=== PATIENT | male | born 1950 | race Asian ===

== ENCOUNTER → 2018-05-17 09:32 | Outpatient (CLI) | payer MEDICARE, OTHER, SELFPAY ==
[2018-05-17 10:46] LABS: Alanine Aminotransferase 44 IU/L (21-72); Albumin 4.4 g/dL (3.5-5.0); Albumin Globulin Ratio 1.8 (1.0-2.8); Alkaline Phosphatase 66 U/L (38-126); Aspartate Aminotransferase 33 IU/L (17-59); Bilirubin Total 2.1 mg/dL (0.2-1.3); Blood Urea Nitrogen 15 mg/dL (9-20); Calcium 9.3 mg/dL (8.4-10.2); Carbon Dioxide 33 mmol/L (22-32); Chloride 100 mmol/L (98-107); Cholesterol 185 mg/dL (140-199); Estimated Glomerular Filt Rate > 60.0 mL/min (>60); Globulin 2.5 g/dL (1.7-4.1); Glucose 99 mg/dL (80-110); HDL Cholesterol 42 mg/dL (40-60); HEMOLYSIS < 15 (0-50); LDL Cholesterol Calculated 116 mg/dL (<100); Potassium 4.5 mmol/L (3.4-5.1); Sodium 140 mmol/L (137-145); Total Protein 6.9 g/dL (6.3-8.2); Triglycerides 137 mg/dL (35-150)
[2018-05-17 11:14] LABS: Prostate Specific Antigen Scrn 2.94 ng/mL (0.1-4.0)
== END ==
PROVIDERS: PCP Internal Medicine; Visit Provider Internal Medicine
DX: I10 Essential (primary) hypertension (principal); E78.5 Hyperlipidemia, unspecified; M10.00 Idiopathic gout, unspecified site
CPT/HCPCS: 36415; 80053; 80061; G0103

== ENCOUNTER → 2018-06-22 10:47 | Outpatient (CLI) | payer MEDICARE, OTHER, SELFPAY ==
[2018-06-22 11:20] LABS: Erythrocyte Sedimentation Rate 2 MM/HR (0-15)
[2018-06-22 11:26] LABS: C-Reactive Protein Quant < 0.5 mg/dL (<1.0)
== END ==
PROVIDERS: Family Provider Internal Medicine; PCP Internal Medicine; Visit Provider Ophthalmology
DX: H53.122 Transient visual loss, left eye (principal)
CPT/HCPCS: 36415; 85651; 86140

== ENCOUNTER → 2018-07-01 14:33 | Outpatient (CLI) | payer MEDICARE, OTHER, SELFPAY ==
[2018-07-01 16:09] LABS: Blood Urea Nitrogen 14 mg/dL (9-20); Estimated Glomerular Filt Rate > 60.0 mL/min (>60)
== END ==
PROVIDERS: PCP Internal Medicine; Visit Provider Ophthalmology
DX: H04.019 Acute dacryoadenitis, unspecified lacrimal gland (principal)
CPT/HCPCS: 36415; 82565; 84520

== ENCOUNTER → 2018-07-11 07:16 | Outpatient (CLI) | payer MEDICARE, OTHER, SELFPAY ==
--- NOTE | 2018-07-11 | DI.MRI.S_ITS ---
PROCEDURE: MR LUMBAR SPINE WO CON INDICATIONS: LUMBAR SPINE PAIN TECHNIQUE: Noncontrast sagittal T1 spin echo and T2 fast echo, sagittal STIR, axial T1 and T2 fast spin echo through the lumbar spine. In cases with scoliosis, additional coronal T2 fast spin echo may be performed. COMPARISON: [facility], CR, XR LUMBAR SPINE 2 OR 3 VIEWS, 07/02/2018, 9:27. [facility], CR, L-SPINE 2-3 VIEWS, 08/05/2014, 15:05. FINDINGS: Image quality: Excellent. Alignment and Curvature: There is normal bony alignment. Bone Marrow: Marrow is of normal overall signal. No acute vertebral body compression fractures. Spinal Cord: Conus medullaris terminates at the L1 level. Visualized cord demonstrates normal signal and size. Paraspinous Soft Tissues: No paravertebral masses. L1-L2: Loss of disc signal and slight loss of disc height. Moderate, diffuse disc bulge. Mild narrowing of the central canal. No neural foraminal narrowing. No neural impingement. L2-L3: Loss of disc signal and slight loss of disc height. Mild diffuse disc bulge. Moderate facet and moderate ligamentum flavum hypertrophy. Severe central stenosis. Mild bilateral neural foraminal narrowing. L3-L4: Loss of disc signal and slight loss of disc height. Mild diffuse disc bulge. Mild bilateral facet hypertrophy. Moderate narrowing of the central canal. Mild bilateral neural foraminal narrowing. No neural impingement. L4-L5: Loss of disc signal and slight loss of disc height. Mild, diffuse disc bulge. Moderate facet and mild ligamentum flavum hypertrophy. Moderate to severe narrowing of the central canal. Mild bilateral neural foraminal narrowing. No neural impingement. L5-S1: Loss of disc signal and height. Mild diffuse disc bulge. Mild bilateral facet hypertrophy. No central stenosis. Mild bilateral neural foraminal narrowing. No neural impingement. IMPRESSION: 1. Multilevel degenerative disc disease. 2. Multilevel facet arthropathy. 3. Severe L2-L3 central canal stenosis. Moderate to severe L4-L5 central canal narrowing. Moderate L3-L4 central canal narrowing. Mild L1-L2 central canal narrowing. 4. Mild bilateral L2-L3, L3-L4, L4-L5 and L5-S1 neural foraminal narrowing. Dictated by: Lee Ann Casas MD, PhD on 07/11/2018 at 11:22 Approved by: Lee Ann Casas MD, PhD on 07/11/2018 at 11:27
--- NOTE | 2018-07-11 | DI.US.S_ITS ---
PROCEDURE: US CAROTID DOPPLER BI INDICATIONS: UNSPECIFIED LACRIMAL GLAND TECHNIQUE: Color and pulse Doppler interrogation was performed of both carotid systems, with image documentation and velocity measurements. COMPARISON: None. FINDINGS: Stenosis calculations are based on SRU (Society of Radiologists in Ultrasound) criteria. Right side: Brachial blood pressure: 128/73 mm Hg. Common carotid artery peak systolic velocity: 87 cm/sec. Internal carotid artery peak systolic velocity: 94 cm/sec. Internal carotid artery end diastolic velocity: 28 cm/sec. External carotid artery peak systolic velocity: 112 cm/sec. ICA/CCA peak systolic ratio: 1.1. Mendoza scale imaging description: Normal appearance. Percent internal carotid artery stenosis: No carotid stenosis. Vertebral artery: Flow direction is antegrade. Left side: Brachial blood pressure: 116/70 mm Hg. Common carotid artery peak systolic velocity: 86 cm/sec. Internal carotid artery peak systolic velocity: 112 cm/sec. Internal carotid artery end diastolic velocity: 37 cm/sec. External carotid artery peak systolic velocity: 96 cm/sec. ICA/CCA peak systolic ratio: 1.3. Mendoza scale imaging description: Normal appearance. Percent internal carotid artery stenosis: No carotid stenosis.. Vertebral artery: Flow direction is antegrade. IMPRESSION: No carotid stenosis. Dictated by: Ash LAUREANO Interpreted: Lee Ann Casas MD on 07/11/2018 at 11:37 Approved by: Lee Ann Casas MD, PhD on 07/11/2018 at 14:36
== END ==
PROVIDERS: Family Provider Internal Medicine; PCP Internal Medicine; Visit Provider Orthopaedic Surgery Orthopaedic Surgery of the Spine
DX: M51.36 Other intervertebral disc degeneration, lumbar region (principal); M51.37 Other intervertebral disc degeneration, lumbosacral region; M47.816 Spondylosis without myelopathy or radiculopathy, lumbar region; M48.061 Spinal stenosis, lumbar region without neurogenic claudication; M48.07 Spinal stenosis, lumbosacral region; M54.5 Low back pain
CPT/HCPCS: 72148; 93880

== ENCOUNTER → 2018-07-30 16:12 | Outpatient (CLI) | payer MEDICARE, OTHER, SELFPAY ==
[2018-07-30 17:39] LABS: Alanine Aminotransferase 83 IU/L (21-72); Albumin 4.3 g/dL (3.5-5.0); Albumin Globulin Ratio 1.7 (1.0-2.8); Alkaline Phosphatase 69 U/L (38-126); Aspartate Aminotransferase 36 IU/L (17-59); Bilirubin Total 1.8 mg/dL (0.2-1.3); Blood Urea Nitrogen 15 mg/dL (9-20); Calcium 9.2 mg/dL (8.4-10.2); Carbon Dioxide 33 mmol/L (22-32); Chloride 100 mmol/L (98-107); Estimated Glomerular Filt Rate > 60.0 mL/min (>60); Globulin 2.5 g/dL (1.7-4.1); Glucose 99 mg/dL (80-110); HEMOLYSIS < 15 (0-50); Sodium 143 mmol/L (137-145); Total Protein 6.8 g/dL (6.3-8.2)
[2018-07-30 18:00] LABS: Free T3, Triiodothyronine Free 3.06 pg/mL (2.77-5.27); Free T4, Direct Thyroxine 0.89 ng/dL (0.78-2.19)
[2018-07-30 18:14] LABS: Thyroid Stimulating Hormone 1.61 uIU/mL (0.47-4.68)
[2018-07-31 21:54] LABS: T4 Total Thyroxine 6.31 ug/dL (5.5-11.0)
[2018-08-01 15:42] LABS: Angiotensin Converting Enzyme 16 U/L (9-67)
[2018-08-01 22:47] LABS: ANCA Screen Negative (Negative)
== END ==
PROVIDERS: PCP Internal Medicine; Visit Provider Ophthalmology
DX: H01.8 Other specified inflammations of eyelid (principal)
CPT/HCPCS: 36415; 80053; 82164; 84436; 84439; 84443; 84481; 86021

== ENCOUNTER → 2018-12-16 11:27 | Outpatient (CLI) | payer MEDICARE, OTHER, SELFPAY ==
[2018-12-18 15:16] LABS: C1 Esterase Inhibitor 25 mg/dL (21-39)
== END ==
PROVIDERS: Family Provider Internal Medicine; PCP Internal Medicine; Visit Provider Ophthalmology
DX: H04.03 Chronic enlargement of lacrimal gland (principal)
CPT/HCPCS: 36415; 86160; 86161

== ENCOUNTER → 2019-01-28 09:48 | Outpatient (CLI) | payer MEDICARE, OTHER, SELFPAY ==
[2019-01-28 11:18] LABS: C-Reactive Protein Quant 0.6 mg/dL (<1.0)
[2019-01-28 11:19] LABS: Erythrocyte Sedimentation Rate 2 MM/HR (0-15)
[2019-01-28 11:22] LABS: Rheumatoid Factor < 8.6 IU/mL (<12.0)
[2019-01-30 19:39] LABS: ANA Screen, IFA Negative (Negative)
[2019-01-31 14:08] LABS: Mitogen-NIL 7.11 IU/mL; NIL 0.01 IU/mL; QuantiFERON TB NEGATIVE (Negative); TB1-NIL 0.01 IU/mL; TB2-NIL 0.01 IU/mL
== END ==
PROVIDERS: Family Provider Ophthalmology; PCP Internal Medicine; Visit Provider Ophthalmology
DX: H04.03 Chronic enlargement of lacrimal gland (principal)
CPT/HCPCS: 36415; 85651; 86038; 86140; 86430; 86480; 86780

== ENCOUNTER → 2019-02-06 09:08 | Outpatient (CLI) | payer MEDICARE, OTHER, SELFPAY ==
--- NOTE | 2019-02-06 | DI.MRI.S_ITS ---
PROCEDURE: MR ORBITS FACE NECK WO/W CON INDICATIONS: CHRONIC ENLARGEMENT OF LEFT LACRIMAL GLAND TECHNIQUE: Noncontrast sagittal T1 spin echo, axial FLAIR, axial gradient echo, axial diffusion and ADC acquired through the brain. Coronal STIR, thin-slice axial T1 spin echo through the orbits. After the administration of contrast, thin-slice axial and coronal T1 spin echo with fat saturation through the orbits, axial T1 spin echo with fat saturation through the brain. COMPARISON: None. FINDINGS: Image quality: Excellent. Orbits: In this patient with this given history, scrutiny is given to the lacrimal glands. The left lateral is slightly larger than the right. No abnormal signal or abnormal enhancement can be seen of the left lacrimal gland. Globes are symmetrical. Note is made of bilateral lens replacements. The optic nerves are normal in size, without abnormal signal or enhancement. No retrobulbar masses or fat abnormalities. The extra-ocular muscles are normal and symmetric in appearance. Optic chiasm is normal. Periorbital soft tissues appear normal. CSF spaces: Ventricles are normal in size and shape. Basal cisterns are patent. No extra-axial fluid collections. Brain: No intracranial bleeds or mass effects. No abnormal intracranial enhancement. Mendoza-white matter interface is intact. Diffusion weighted images demonstrate no acute ischemic insults. Pituitary gland appears normal, without sellar or suprasellar masses. Brainstem appears normal. Normal intravascular flow voids are present. Skull and face: Calvarial marrow is normal in signal. Sinuses: Moderate to prominent mucosal thickening can be seen within the maxillary sinuses and there is at least moderate mucosal thickening seen within the ethmoid air cells. Mmmu-ar-ybisgfsm mucosal thickening is seen within the frontal sinuses, right worse than left. Mild sphenoid sinus mucosal thickening is seen. There is mild leftward nasal septal deviation noted. No abnormal fluid can be seen within the mastoid air cells. IMPRESSION: Asymmetric lacrimal glands, with left lacrimal gland enlargement. No masses can be seen associated with it. Paranasal sinus disease is seen, which is most prominent involving the maxillary sinuses. Dictated by: Petros Dillon M.D. on 02/06/2019 at 9:54 Approved by: Petros Dillon M.D. on 02/06/2019 at 9:57
== END ==
PROVIDERS: Family Provider Ophthalmology; PCP Internal Medicine; Visit Provider Ophthalmology
DX: H04.03 Chronic enlargement of lacrimal gland (principal); J32.4 Chronic pansinusitis
CPT/HCPCS: 70543

== ENCOUNTER → 2019-05-30 09:46 | Outpatient (CLI) | payer MEDICARE, OTHER, SELFPAY ==
[2019-05-30 11:36] LABS: Alanine Aminotransferase 39 IU/L (21-72); Albumin 4.3 g/dL (3.5-5.0); Albumin Globulin Ratio 1.6 (1.0-2.8); Alkaline Phosphatase 80 U/L (38-126); Aspartate Aminotransferase 33 IU/L (17-59); BUN Creatinine Ratio 15.6 (6-22); Bilirubin Total 1.5 mg/dL (0.2-1.3); Blood Urea Nitrogen 14 mg/dL (9-20); Calcium 9.4 mg/dL (8.4-10.2); Carbon Dioxide 32 mmol/L (22-32); Chloride 101 mmol/L (98-107); Cholesterol 178 mg/dL (140-199); Estimated Glomerular Filt Rate > 60.0 mL/min (>60); Globulin 2.7 g/dL (1.7-4.1); Glucose 106 mg/dL (80-110); HDL Cholesterol 35 mg/dL (40-60); HEMOLYSIS < 15 (0-50); LDL Cholesterol Calculated 102 mg/dL (<100); Sodium 141 mmol/L (137-145); Triglycerides 205 mg/dL (35-150); Uric Acid 4.1 mg/dL (3.5-8.5)
[2019-05-30 12:03] LABS: Prostate Specific Antigen Scrn 2.72 ng/mL (0.1-4.0)
== END ==
PROVIDERS: PCP Internal Medicine; Visit Provider Internal Medicine
DX: M10.00 Idiopathic gout, unspecified site (principal); E78.5 Hyperlipidemia, unspecified; I10 Essential (primary) hypertension; Z12.5 Encounter for screening for malignant neoplasm of prostate
CPT/HCPCS: 36415; 80053; 80061; 84550; G0103

== ENCOUNTER → 2019-08-06 13:46 | Outpatient (CLI) | payer MEDICARE, OTHER, SELFPAY ==
--- NOTE | 2019-08-06 | DI.RAD.S_ITS ---
PROCEDURE: XR CHEST 2V INDICATIONS: sarcoidosis TECHNIQUE: 2 views of the chest were acquired. COMPARISON: None. FINDINGS: Surgical changes and devices: None. Lungs and pleura: Lungs are clear. No pleural effusions or pneumothorax. Mediastinum: Mediastinal contours are normal. Heart size is normal. Bones and chest wall: No suspicious bony abnormalities. Soft tissues appear unremarkable. IMPRESSION: Chest without acute cardiopulmonary abnormalities. Dictated by: Walter Chavira M.D. on 08/06/2019 at 15:19 Approved by: Walter Chavira M.D. on 08/06/2019 at 15:20
== END ==
PROVIDERS: PCP Internal Medicine; Visit Provider Internal Medicine Rheumatology
DX: D86.9 Sarcoidosis, unspecified (principal)
CPT/HCPCS: 71046

== ENCOUNTER 2019-10-23 07:30 | Outpatient (RCR) | payer MEDICARE, OTHER, SELFPAY ==
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
== END 2019-10-23 08:30 ==
LOC: PHYS 07:30
PROVIDERS: PCP Internal Medicine; Visit Provider Neurological Surgery
DX: M48.062 Spinal stenosis, lumbar region with neurogenic claudication (principal)
CPT/HCPCS: 97110; 97161; 97535

== ENCOUNTER → 2019-12-12 10:47 | Outpatient (CLI) | payer MEDICARE, OTHER, SELFPAY ==
[2019-12-12 11:21] LABS: Add Manual Diff / Slide Review NO; Basophils Absolute Auto 100 /uL (0-100); Basophils Percent Auto 1.7 % (0-2); Eosinophils Absolute Auto 200 /uL (0-450); Eosinophils Percent Auto 4.1 % (2-4); Hematocrit 44.9 % (41-53); Hemoglobin 15.4 g/dL (13.5-17.5); Lymphocytes Absolute Auto 1300 /uL (1100-4500); Lymphocytes Percent Auto 31.6 % (25-40); Mean Corpuscular HGB Conc 34.2 % (30-36); Mean Corpuscular Volume 90.5 fL (80-100); Monocytes Absolute Auto 300 /uL (0-900); Monocytes Percent Auto 7.3 % (3-14); Neutrophils Absolute Auto 2300 /uL (1500-7000); Neutrophils Percent Auto 55.3 % (50-75); Platelet Count 194 X10^3/uL (150-400); Red Blood Cell Count 4.97 X10^6/uL (4.5-5.9); Red Cell Distribution Width 13.3 % (11.6-14.8); White Blood Cell Count 4.2 X10^3/uL (4.5-11.0)
[2019-12-12 12:01] LABS: Erythrocyte Sedimentation Rate 2 MM/HR (0-15)
[2019-12-12 12:16] LABS: Alanine Aminotransferase 50 IU/L (<50); Albumin 4.3 g/dL (3.5-5.0); Albumin Globulin Ratio 1.5 (1.0-2.8); Alkaline Phosphatase 89 U/L (38-126); Aspartate Aminotransferase 39 IU/L (17-59); Bilirubin Total 1.4 mg/dL (0.2-1.3); Blood Urea Nitrogen 12 mg/dL (9-20); C-Reactive Protein Quant < 0.5 mg/dL (<1.0); Calcium 9.6 mg/dL (8.4-10.2); Carbon Dioxide 31 mmol/L (22-32); Chloride 102 mmol/L (98-107); Estimated Glomerular Filt Rate > 60.0 mL/min (>60); Globulin 2.8 g/dL (1.7-4.1); Glucose 98 mg/dL (80-110); HEMOLYSIS < 15 (0-50); Sodium 141 mmol/L (137-145); Total Protein 7.1 g/dL (6.3-8.2)
[2019-12-15 12:18] LABS: Angiotensin Converting Enzyme 25 U/L (9-67)
== END ==
PROVIDERS: PCP Internal Medicine; Referring Provider Internal Medicine Rheumatology; Visit Provider Internal Medicine Rheumatology
DX: D86.9 Sarcoidosis, unspecified (principal)
CPT/HCPCS: 36415; 80053; 82164; 85025; 85651; 86140

== ENCOUNTER → 2020-10-06 07:46 | Outpatient (CLI) | payer MEDICARE, OTHER, SELFPAY ==
[2020-10-06 08:09] LABS: Add Manual Diff / Slide Review NO; Basophils Absolute Auto 100 /uL (0-100); Basophils Percent Auto 1.2 % (0-2); Eosinophils Absolute Auto 200 /uL (0-450); Eosinophils Percent Auto 4.7 % (2-4); Hemoglobin 15.9 g/dL (13.5-17.5); Lymphocytes Absolute Auto 1300 /uL (1100-4500); Mean Corpuscular HGB Conc 33.9 % (30-36); Mean Corpuscular Hemoglobin 30.8 PG (26-34); Mean Corpuscular Volume 90.9 fL (80-100); Monocytes Absolute Auto 400 /uL (0-900); Monocytes Percent Auto 7.1 % (3-14); Neutrophils Absolute Auto 3000 /uL (1500-7000); Platelet Count 196 X10^3/uL (150-400); Red Blood Cell Count 5.17 X10^6/uL (4.5-5.9); Red Cell Distribution Width 13.1 % (11.6-14.8)
[2020-10-06 08:21] LABS: Alanine Aminotransferase 45 IU/L (<50); Albumin 4.4 g/dL (3.5-5.0); Albumin Globulin Ratio 1.6 (1.0-2.8); Alkaline Phosphatase 81 U/L (38-126); Aspartate Aminotransferase 36 IU/L (17-59); Bilirubin Total 1.8 mg/dL (0.2-1.3); Blood Urea Nitrogen 14 mg/dL (9-20); Calcium 9.4 mg/dL (8.4-10.2); Carbon Dioxide 34 mmol/L (22-32); Chloride 100 mmol/L (98-107); Cholesterol 205 mg/dL (140-199); Estimated Glomerular Filt Rate > 60.0 mL/min (>60); Globulin 2.8 g/dL (1.7-4.1); Glucose 116 mg/dL (80-110); HDL Cholesterol 39 mg/dL (40-60); HEMOLYSIS 22 (0-50); LDL Cholesterol Calculated 113 mg/dL (<100); Potassium 4.1 mmol/L (3.4-5.1); Sodium 139 mmol/L (137-145); Total Protein 7.2 g/dL (6.3-8.2); Triglycerides 266 mg/dL (35-150); Uric Acid 4.4 mg/dL (3.5-8.5)
[2020-10-06 08:51] LABS: Prostate Specific Antigen Scrn 2.86 ng/mL (0.1-4.0)
== END ==
PROVIDERS: PCP Internal Medicine; Referring Provider Internal Medicine; Visit Provider Internal Medicine
DX: Z00.00 Encounter for general adult medical examination without abnormal findings (principal); E78.00 Pure hypercholesterolemia, unspecified; Z12.5 Encounter for screening for malignant neoplasm of prostate; I10 Essential (primary) hypertension; M10.00 Idiopathic gout, unspecified site
CPT/HCPCS: 36415; 80053; 80061; 84550; 85025; G0103

== ENCOUNTER → 2021-04-13 13:51 | Outpatient (CLI) | payer MEDICARE, OTHER, SELFPAY ==
[2021-04-13 16:16] LABS: Cholesterol 204 mg/dL (140-199); HDL Cholesterol 36 mg/dL (40-60); LDL Cholesterol Calculated 111 mg/dL (<100); Triglycerides 284 mg/dL (35-150)
== END ==
PROVIDERS: PCP Internal Medicine; Referring Provider Internal Medicine; Visit Provider Internal Medicine
DX: E78.5 Hyperlipidemia, unspecified (principal)
CPT/HCPCS: 36415; 80061

== ENCOUNTER → 2022-09-20 11:15 | Outpatient (CLI) | payer MEDICARE, OTHER, SELFPAY ==
--- NOTE | 2022-09-20 | DI.RAD.S_ITS ---
PROCEDURE: XR LUMBAR SPINE 2-3V INDICATIONS: Low back pain, unspecified TECHNIQUE: 3 views of the lumbar spine were acquired. COMPARISON: [facility], , L-SPINE 2-3 VIEWS, 08/05/2014, 15:05. FINDINGS: Bones: 5 [id number] vertebrae are present. There is straightening of normal lumbar lordosis. Loss of disc height, and degenerative endplate changes are noted throughout lumbar spine progressed since 2013 study. Finding is most notably at L5-S1 level.. No vertebral body compression fractures. No suspicious bony lesions. Soft tissues: Overlying bowel gas pattern is normal. No suspicious soft tissue calcifications. IMPRESSION: Degenerative disc disease throughout lumbar spine most notably at L5-S1 level progressed since 2013 study. No acute compression fracture or significant spondylolisthesis. Dictated by: Moisés Robin M.D. on 09/20/2022 at 13:28 Approved by: Moisés Robin M.D. on 09/20/2022 at 13:34
== END ==
PROVIDERS: PCP Internal Medicine; Referring Provider Internal Medicine; Visit Provider Internal Medicine
DX: M51.37 Other intervertebral disc degeneration, lumbosacral region (principal); M51.36 Other intervertebral disc degeneration, lumbar region; M54.50 Low back pain, unspecified
CPT/HCPCS: 72100

== ENCOUNTER 2023-01-10 09:45 | Outpatient (RCR) | payer MEDICARE, OTHER, SELFPAY ==
--- NOTE | 2022-11-29 12:18 | PT.OIE ---
Current Diagnoses Low back pain, unspecified (11/29/22) Visit Care Team Role Provider Type Elma Piper MD Attending Provider Physician Family Provider Primary Care Provider Referring Provider Specialty: Internal Medicine Address: Phone: Email: Physical Therapy Initial Evaluation PT-OP-A Visit Information Start: 11/29/22 08:35 Freq: Status: Active Protocol: Document 11/29/22 09:45 TH (Rec: 11/29/22 12:17 TH [id number]) Out-Patient Physical Therapy Visit Information Visit Information Visit Type Initial Evaluation Visit Start Time 09:45 Visit Stop Time 10:30 Total Visit Minutes 45 Visit Number 1 Number of GRAZING AIDE Visits 0 Precautions Precautions Screen for ESTIM Ok for traction (lumbar) PT-OP-B Current Condition Start: 11/29/22 08:35 Freq: Status: Active Protocol: Document 11/29/22 09:45 TH (Rec: 11/29/22 12:17 TH [id number]) Current Condition History of Current Condition Current Complaints Can't sleep through the night History of Current Condition Pt reports lower back ( centralized to lower lumbar region) symptoms started about 2 months ago. Pain is mostly at night and in the morning. Feels better after up and walking around. Early on when symptoms began pt had a brief flare of right sciatic pain then this went away. Prior Treatments and Tests Xray Lumbar spine 09/20/23 MPRESSION: Degenerative disc disease throughout lumbar spine most notably at L5-S1 level progressed since 2013 study. No acute compression fracture or significant spondylolisthesis. Treatment Goals Patient/Caregiver Goals Pt would like to sleep through the night. Currently he awakes in the night due to pain. Using pillow between knees helps. Prior Functional Status Baseline Function- ADL's Independent Baseline Function- Mobility Independent Current Functional Impairments (Reported) Functional Limitations- ADL's IND Functional Limitations- Mobility/Gait IND though prolonged sitting increases pain. PT-OP-C Subjective Start: 11/29/22 08:35 Freq: Status: Active Protocol: Document 11/29/22 09:45 TH (Rec: 11/29/22 12:17 TH [id number]) Patient Questionnaires Oswestry Low Back Index Oswestry Score 5/50 Oswestry Impairment 1 to 19% Impaired (Score 1-19) PT-OP-J Posture/Palpation/Skin Start: 11/29/22 08:35 Freq: Status: Active Protocol: Document 11/29/22 09:45 TH (Rec: 11/29/22 12:17 TH [id number]) Posture Evaluation Comments Posture Comments R trunk concave, LLE increased ER, R innominate ant. rot., L trunk ant.rotation, decreased lumbar lordosis, Left gluteus mm atrophy compared to right, R LE functionally shorter than left Palpation Assessment Location Lumbar Palpation Details No pain with palpation to lumbar paraspinals PT-OP-K Range of Motion Start: 11/29/22 08:35 Freq: Status: Active Protocol: Document 11/29/22 09:45 TH (Rec: 11/29/22 12:17 TH [id number]) Lumbar Spine Range of Motion Lumbar Spine Active Percentage Testing Position Standing Comments Flex: WNL Ext: WNL rot. r/l WFL PT-OP-Q Treatments Start: 11/29/22 08:35 Freq: Status: Active Protocol: Document 11/29/22 09:45 TH (Rec: 11/29/22 12:17 [id number]) Therapeutic Exercises Other Exercises HEP Comments See self care for medbridge HEP 3 Comments 3. isometric hip abduction ( pink band) 2 Comments 2. Bridges ( hold for now / pain) 1 Comments 1. Hip flexor stretch off EOB bilateral 30 sec holds Self-Care/Home Management Treatment Education Patient Education Home Exercise Program Other Education Access Code: [email or web address] URL: [email or web address] Date: 11/29/2022 Prepared by: Lisa Austin Exercises Supine Hamstring Stretch with Strap - 1 x daily - 7 x weekly - 1 sets - 3 reps - 30 sec hold Supine Quadriceps Stretch with Strap on Table - 1 x daily - 7 x weekly - 1 sets - 3 reps - 30 sec hold Hooklying Isometric Clamshell - 1 x daily - 7 x weekly - 2 sets - 10 reps PT-OP-T Assessment and Plan Start: 11/29/22 08:35 Freq: Status: Active Protocol: Document 11/29/22 09:45 TH (Rec: 11/29/22 12:17 TH [id number]) Physical Therapy Assessment Rehab Potential Rehabilitation Potential Good Evaluation Complexity Number of Personal Factors/Comorbidities 0 Number of Body Systems Impaired 1-2 Clinical Presentation at Evaluation Stable Impairments Impairments Activity Tolerance,Pain Other Impairments Hard time sleeping due to pain Goals Two Impairment Difficulty sleeping Short Term Goal (STG) Pt will sleep with 50 % less interruptionsdue to pain. STG Duration 6 weeks Steam Fitter Helper Goal (LTG) Pt will sleep without interruptions due to pain. LTG Duration 12 weeks One Impairment Prolonged sitting is difficult . Short Term Goal (STG) Pt will be able to sit for > = 30 min with pain > = 4/10 lower back pain. STG Duration 6 weeks Steam Fitter Helper Goal (LTG) Pt will be able to sit for > = 45 min with minimal to no lower back pain. LTG Duration 12 weeks Assessment Summary Assessment Pt presents with muscle imbalance of core/ hips as well as degenerative changes that have placed increased strain on structures of lumbar spine. Pt will benefit from further PT to improve core/hip strength/stability. Physical Therapy Plan Frequency and Duration Frequency of Treatment 1-2x/wk Duration of treatment (weeks) 12 Plan of Care Start Date 11/29/22 Plan of Care End Date 02/21/23 Therapeutic Interventions Therapeutic Interventions Home Exercise Program,Joint Mobilizations,Manual Therapy, Neuromuscular Re-education, Patient/Caregiver Education, Self-Care/Home Management,Soft Tissue Mobilization,Taping, Therapeutic Activities, Therapeutic Exercises Modalities Cold Pack/Ice Massage,Electric Stimulation,Traction- Mechanical,Ultrasound
--- NOTE | 2022-11-29 12:21 | PT.OPPOC ---
Physical, Occupational & Speech Therapy At [facility] Current Diagnoses Low back pain, unspecified (11/29/22) Visit Care Team Role Provider Type Elma Piper MD Attending Provider Physician Family Provider Primary Care Provider Referring Provider Specialty: Internal Medicine Address: Phone: Email: Plan Of Care PT-OP-T Assessment and Plan Start: 11/29/22 08:35 Freq: Status: Active Protocol: Document 11/29/22 09:45 TH (Rec: 11/29/22 12:17 TH [id number]) Physical Therapy Assessment Rehab Potential Rehabilitation Potential Good Evaluation Complexity Number of Personal Factors/Comorbidities 0 Number of Body Systems Impaired 1-2 Clinical Presentation at Evaluation Stable Impairments Impairments Activity Tolerance,Pain Other Impairments Hard time sleeping due to pain Goals Two Impairment Difficulty sleeping Short Term Goal (STG) Pt will sleep with 50 % less interruptionsdue to pain. STG Duration 6 weeks Fpc Goal (LTG) Pt will sleep without interruptions due to pain. LTG Duration 12 weeks One Impairment Prolonged sitting is difficult . Short Term Goal (STG) Pt will be able to sit for > = 30 min with pain > = 4/10 lower back pain. STG Duration 6 weeks Fpc Goal (LTG) Pt will be able to sit for > = 45 min with minimal to no lower back pain. LTG Duration 12 weeks Assessment Summary Assessment Pt presents with muscle imbalance of core/ hips as well as degenerative changes that have placed increased strain on structures of lumbar spine. Pt will benefit from further PT to improve core/hip strength/stability. Physical Therapy Plan Frequency and Duration Frequency of Treatment 1-2x/wk Duration of treatment (weeks) 12 Plan of Care Start Date 11/29/22 Plan of Care End Date 02/21/23 Therapeutic Interventions Therapeutic Interventions Home Exercise Program,Joint Mobilizations,Manual Therapy, Neuromuscular Re-education, Patient/Caregiver Education, Self-Care/Home Management,Soft Tissue Mobilization,Taping, Therapeutic Activities, Therapeutic Exercises Modalities Cold Pack/Ice Massage,Electric Stimulation,Traction- Mechanical,Ultrasound Plan of Care Dates Plan of Care Start Date 11/29/22 Plan of Care End Date 02/21/23 Electronically Signed by: Lisa Austin PT 11/29/22 1221 If you are in agreement with this Plan of Care, please return a signed and dated copy. I have reviewed this Plan of Care and certify that the skilled therapy services above are required to meet the patient?s needs. Physician Signature Date Printed Name and Credentials Clinical Instructor Signature Printed Name and Credentials
--- NOTE | 2022-12-13 16:01 | PT.OTN ---
Current Diagnoses Low back pain, unspecified (12/13/22) Physical Therapy Treatment Note PT-OP-A Visit Information Start: 11/29/22 08:35 Freq: Status: Active Protocol: Document 12/13/22 15:50 TH (Rec: 12/13/22 16:01 TH [id number]) Out-Patient Physical Therapy Visit Information Visit Information Visit Type Treatment Note Visit Start Time 14:30 Visit Stop Time 15:15 Total Visit Minutes 45 Visit Number 3 Number of ABRASIVE GRADER Visits 0 PT-OP-B Current Condition Start: 11/29/22 08:35 Freq: Status: Active Protocol: Document 11/29/22 09:45 TH (Rec: 11/29/22 12:17 TH [id number]) Current Condition History of Current Condition Current Complaints Can't sleep through the night History of Current Condition Pt reports lower back ( centralized to lower lumbar region) symptoms started about 2 months ago. Pain is mostly at night and in the morning. Feels better after up and walking around. Early on when symptoms began pt had a brief flare of right sciatic pain then this went away. Prior Treatments and Tests Xray Lumbar spine 09/20/23 MPRESSION: Degenerative disc disease throughout lumbar spine most notably at L5-S1 level progressed since 2013 study. No acute compression fracture or significant spondylolisthesis. Treatment Goals Patient/Caregiver Goals Pt would like to sleep through the night. Currently he awakes in the night due to pain. Using pillow between knees helps. Prior Functional Status Baseline Function- ADL's Independent Baseline Function- Mobility Independent Current Functional Impairments (Reported) Functional Limitations- ADL's IND Functional Limitations- Mobility/Gait IND though prolonged sitting increases pain. PT-OP-C Subjective Start: 11/29/22 08:35 Freq: Status: Active Protocol: Document 12/13/22 15:50 TH (Rec: 12/13/22 16:01 TH [id number]) OP-PT Subjective Patient Comments Patient Comments Pt reports he feels like things are getting a little better. He has been less stiff in the AM and was able to sleep throughout the night last night. Patient Reported Progress Improving PT-OP-J Posture/Palpation/Skin Start: 11/29/22 08:35 Freq: Status: Active Protocol: Document 11/29/22 09:45 TH (Rec: 11/29/22 12:17 TH [id number]) Posture Evaluation Comments Posture Comments R trunk concave, LLE increased ER, R innominate ant. rot., L trunk ant.rotation, decreased lumbar lordosis, Left gluteus mm atrophy compared to right, R LE functionally shorter than left Palpation Assessment Location Lumbar Palpation Details No pain with palpation to lumbar paraspinals PT-OP-K Range of Motion Start: 11/29/22 08:35 Freq: Status: Active Protocol: Document 11/29/22 09:45 TH (Rec: 11/29/22 12:17 TH [id number]) Lumbar Spine Range of Motion Lumbar Spine Active Percentage Testing Position Standing Comments Flex: WNL Ext: WNL rot. r/l WFL PT-OP-Q Treatments Start: 11/29/22 08:35 Freq: Status: Active Protocol: Document 12/13/22 15:50 TH (Rec: 12/13/22 16:01 TH [id number]) Therapeutic Exercises Other Exercises thread the needle Comments 1 x 4 nimo pose Comments 1 x 5 anatomical posture Comments 1 x 5 10 sec holds with rib tuck Rib tuck in supine Comments 1 x 10 APT/PPT Comments 1 x 5 each PT-OP-R Modalities Start: 11/29/22 08:35 Freq: Status: Active Protocol: Document 12/13/22 15:50 TH (Rec: 12/13/22 16:01 TH [id number]) Spinal Traction Traction Treatment Lumbar traction Method Mechanical Traction Treatment Comment Gómez lumbar traction PT-OP-T Assessment and Plan Start: 11/29/22 08:35 Freq: Status: Active Protocol: Document 12/13/22 15:50 TH (Rec: 12/13/22 16:01 TH [id number]) Physical Therapy Assessment Goals Two Impairment Difficulty sleeping Short Term Goal (STG) Pt will sleep with 50 % less interruptionsdue to pain. STG Duration 6 weeks Shelter Goal (LTG) Pt will sleep without interruptions due to pain. LTG Duration 12 weeks One Impairment Prolonged sitting is difficult . Short Term Goal (STG) Pt will be able to sit for > = 30 min with pain > = 4/10 lower back pain. STG Duration 6 weeks Personal Property Assessor Goal (LTG) Pt will be able to sit for > = 45 min with minimal to no lower back pain. LTG Duration 12 weeks Physical Therapy Plan Frequency and Duration Frequency of Treatment 1-2x/wk Duration of treatment (weeks) 12 Plan of Care Start Date 11/29/22 Plan of Care End Date 02/21/23 Therapeutic Interventions Therapeutic Interventions Home Exercise Program,Joint Mobilizations,Manual Therapy, Neuromuscular Re-education, Patient/Caregiver Education, Self-Care/Home Management,Soft Tissue Mobilization,Taping, Therapeutic Activities, Therapeutic Exercises Modalities Cold Pack/Ice Massage,Electric Stimulation,Traction- Mechanical,Ultrasound
--- NOTE | 2022-12-20 15:51 | PT.OTN ---
Current Diagnoses Low back pain, unspecified (12/20/22) Physical Therapy Treatment Note PT-OP-A Visit Information Start: 11/29/22 08:35 Freq: Status: Active Protocol: Document 12/20/22 10:38 TH (Rec: 12/20/22 15:51 TH [id number]) Out-Patient Physical Therapy Visit Information Visit Information Visit Type Treatment Note Visit Start Time 10:30 Visit Stop Time 11:15 Total Visit Minutes 45 Visit Number 4 Number of ORAL HEALTH THERAPIST Visits 0 PT-OP-B Current Condition Start: 11/29/22 08:35 Freq: Status: Active Protocol: Document 11/29/22 09:45 TH (Rec: 11/29/22 12:17 TH [id number]) Current Condition History of Current Condition Current Complaints Can't sleep through the night History of Current Condition Pt reports lower back ( centralized to lower lumbar region) symptoms started about 2 months ago. Pain is mostly at night and in the morning. Feels better after up and walking around. Early on when symptoms began pt had a brief flare of right sciatic pain then this went away. Prior Treatments and Tests Xray Lumbar spine 09/20/23 MPRESSION: Degenerative disc disease throughout lumbar spine most notably at L5-S1 level progressed since 2013 study. No acute compression fracture or significant spondylolisthesis. Treatment Goals Patient/Caregiver Goals Pt would like to sleep through the night. Currently he awakes in the night due to pain. Using pillow between knees helps. Prior Functional Status Baseline Function- ADL's Independent Baseline Function- Mobility Independent Current Functional Impairments (Reported) Functional Limitations- ADL's IND Functional Limitations- Mobility/Gait IND though prolonged sitting increases pain. PT-OP-C Subjective Start: 11/29/22 08:35 Freq: Status: Active Protocol: Document 12/20/22 10:38 TH (Rec: 12/20/22 15:51 TH [id number]) OP-PT Subjective Patient Comments Patient Comments Pt states he has consistently been able to sleep throughout the night. At times he has occasional stiffness in AM howver overall symptoms have improved. PT-OP-J Posture/Palpation/Skin Start: 11/29/22 08:35 Freq: Status: Active Protocol: Document 11/29/22 09:45 TH (Rec: 11/29/22 12:17 TH [id number]) Posture Evaluation Comments Posture Comments R trunk concave, LLE increased ER, R innominate ant. rot., L trunk ant.rotation, decreased lumbar lordosis, Left gluteus mm atrophy compared to right, R LE functionally shorter than left Palpation Assessment Location Lumbar Palpation Details No pain with palpation to lumbar paraspinals PT-OP-K Range of Motion Start: 11/29/22 08:35 Freq: Status: Active Protocol: Document 11/29/22 09:45 TH (Rec: 11/29/22 12:17 TH [id number]) Lumbar Spine Range of Motion Lumbar Spine Active Percentage Testing Position Standing Comments Flex: WNL Ext: WNL rot. r/l WFL PT-OP-Q Treatments Start: 11/29/22 08:35 Freq: Status: Active Protocol: Document 12/20/22 10:38 TH (Rec: 12/20/22 15:51 TH [id number]) Therapeutic Exercises Other Exercises hip hike Comments 1 x 10 bilat in standing articulating bridge Comments 1 x 10 APT/PPT Comments 1 x 5 each Manual Therapy Treatment Manual Techniques hip flexor stretch Comments bilat. off EOB with massage roller to quads and tfl. Self-Care/Home Management Treatment Education Patient Education Home Exercise Program Other Education Access Code: [email or web address] URL: [email or web address] Date: 12/20/2022 Prepared by: Lisa Austin Exercises Supine Hamstring Stretch with Strap - 1 x daily - 7 x weekly - 1 sets - 3 reps - 30 sec hold Hooklying Isometric Clamshell - 1 x daily - 7 x weekly - 2 sets - 10 reps Standing Anatomical Position with Scapular Retraction and Depression at Wall - 1 x daily - 7 x weekly - 1 sets - 5 reps - 10 sec hold Supine Anterior Pelvic Tilt - 1 x daily - 7 x weekly - 1 sets - 10 reps Supine Posterior Pelvic Tilt - 1 x daily - 7 x weekly - 1 sets - 10 reps Half Kneeling Hip Flexor Stretch with Tri-Planar Reach - 1 x daily - 7 x weekly - 1 sets - 3 reps - 30 sec hold Child's Pose with Thread the Needle - 1 x daily - 7 x weekly - 1 sets - 3 reps - 30- 60 sec hold Supine Bridge with Spinal Articulation - 1 x daily - 7 x weekly - 1 sets - 10 reps Hip Hiking on Step - 1 x daily - 7 x weekly - 1 sets - 10 reps Standing Hip Flexor Stretch on Chair - 1 x daily - 7 x weekly - 1 sets - 3 reps - 30- 60 sec hold PT-OP-R Modalities Start: 11/29/22 08:35 Freq: Status: Active Protocol: Document 12/13/22 15:50 TH (Rec: 12/13/22 16:01 TH [id number]) Spinal Traction Traction Treatment Lumbar traction Method Mechanical Traction Treatment Comment Gómez lumbar traction PT-OP-T Assessment and Plan Start: 11/29/22 08:35 Freq: Status: Active Protocol: Document 12/20/22 10:38 TH (Rec: 12/20/22 15:51 TH [id number]) Physical Therapy Assessment Assessment Summary Assessment Pt is making good progress as demonstrated by decreased symptoms and improved ability to sleep at night. Will likely dc in [facility] next 1-2 visits. Physical Therapy Plan Frequency and Duration Frequency of Treatment 1-2x/wk Duration of treatment (weeks) 12 Plan of Care Start Date 11/29/22 Plan of Care End Date 02/21/23 Therapeutic Interventions Therapeutic Interventions Home Exercise Program,Joint Mobilizations,Manual Therapy, Neuromuscular Re-education, Patient/Caregiver Education, Self-Care/Home Management,Soft Tissue Mobilization,Taping, Therapeutic Activities, Therapeutic Exercises Modalities Cold Pack/Ice Massage,Electric Stimulation,Traction- Mechanical,Ultrasound Next Visit Focus/Plan Next Visit Plan anti rotation ex.
--- NOTE | 2022-12-27 16:18 | PT.OTN ---
Current Diagnoses Low back pain, unspecified (12/27/22) Physical Therapy Treatment Note PT-OP-A Visit Information Start: 11/29/22 08:35 Freq: Status: Active Protocol: Document 12/20/22 10:38 TH (Rec: 12/20/22 15:51 TH [id number]) Out-Patient Physical Therapy Visit Information Visit Information Visit Type Treatment Note Visit Start Time 10:30 Visit Stop Time 11:15 Total Visit Minutes 45 Visit Number 4 Number of INNER TUBE TUBER MACHINE OPERATOR Visits 0 PT-OP-B Current Condition Start: 11/29/22 08:35 Freq: Status: Active Protocol: Document 11/29/22 09:45 TH (Rec: 11/29/22 12:17 TH [id number]) Current Condition History of Current Condition Current Complaints Can't sleep through the night History of Current Condition Pt reports lower back ( centralized to lower lumbar region) symptoms started about 2 months ago. Pain is mostly at night and in the morning. Feels better after up and walking around. Early on when symptoms began pt had a brief flare of right sciatic pain then this went away. Prior Treatments and Tests Xray Lumbar spine 09/20/23 MPRESSION: Degenerative disc disease throughout lumbar spine most notably at L5-S1 level progressed since 2013 study. No acute compression fracture or significant spondylolisthesis. Treatment Goals Patient/Caregiver Goals Pt would like to sleep through the night. Currently he awakes in the night due to pain. Using pillow between knees helps. Prior Functional Status Baseline Function- ADL's Independent Baseline Function- Mobility Independent Current Functional Impairments (Reported) Functional Limitations- ADL's IND Functional Limitations- Mobility/Gait IND though prolonged sitting increases pain. PT-OP-C Subjective Start: 11/29/22 08:35 Freq: Status: Active Protocol: Document 12/20/22 10:38 TH (Rec: 12/20/22 15:51 TH [id number]) OP-PT Subjective Patient Comments Patient Comments Pt states he has consistently been able to sleep throughout the night. At times he has occasional stiffness in AM howver overall symptoms have improved. PT-OP-J Posture/Palpation/Skin Start: 11/29/22 08:35 Freq: Status: Active Protocol: Document 11/29/22 09:45 TH (Rec: 11/29/22 12:17 TH [id number]) Posture Evaluation Comments Posture Comments R trunk concave, LLE increased ER, R innominate ant. rot., L trunk ant.rotation, decreased lumbar lordosis, Left gluteus mm atrophy compared to right, R LE functionally shorter than left Palpation Assessment Location Lumbar Palpation Details No pain with palpation to lumbar paraspinals PT-OP-K Range of Motion Start: 11/29/22 08:35 Freq: Status: Active Protocol: Document 11/29/22 09:45 TH (Rec: 11/29/22 12:17 TH [id number]) Lumbar Spine Range of Motion Lumbar Spine Active Percentage Testing Position Standing Comments Flex: WNL Ext: WNL rot. r/l WFL PT-OP-Q Treatments Start: 11/29/22 08:35 Freq: Status: Active Protocol: Document 12/20/22 10:38 TH (Rec: 12/20/22 15:51 TH [id number]) Therapeutic Exercises Other Exercises hip hike Comments 1 x 10 bilat in standing articulating bridge Comments 1 x 10 APT/PPT Comments 1 x 5 each Manual Therapy Treatment Manual Techniques hip flexor stretch Comments bilat. off EOB with massage roller to quads and tfl. Self-Care/Home Management Treatment Education Patient Education Home Exercise Program Other Education Access Code: [email or web address] URL: [email or web address] Date: 12/20/2022 Prepared by: Lisa Austin Exercises Supine Hamstring Stretch with Strap - 1 x daily - 7 x weekly - 1 sets - 3 reps - 30 sec hold Hooklying Isometric Clamshell - 1 x daily - 7 x weekly - 2 sets - 10 reps Standing Anatomical Position with Scapular Retraction and Depression at Wall - 1 x daily - 7 x weekly - 1 sets - 5 reps - 10 sec hold Supine Anterior Pelvic Tilt - 1 x daily - 7 x weekly - 1 sets - 10 reps Supine Posterior Pelvic Tilt - 1 x daily - 7 x weekly - 1 sets - 10 reps Half Kneeling Hip Flexor Stretch with Tri-Planar Reach - 1 x daily - 7 x weekly - 1 sets - 3 reps - 30 sec hold Child's Pose with Thread the Needle - 1 x daily - 7 x weekly - 1 sets - 3 reps - 30- 60 sec hold Supine Bridge with Spinal Articulation - 1 x daily - 7 x weekly - 1 sets - 10 reps Hip Hiking on Step - 1 x daily - 7 x weekly - 1 sets - 10 reps Standing Hip Flexor Stretch on Chair - 1 x daily - 7 x weekly - 1 sets - 3 reps - 30- 60 sec hold PT-OP-R Modalities Start: 11/29/22 08:35 Freq: Status: Active Protocol: Document 12/13/22 15:50 TH (Rec: 12/13/22 16:01 TH [id number]) Spinal Traction Traction Treatment Lumbar traction Method Mechanical Traction Treatment Comment Gómez lumbar traction PT-OP-T Assessment and Plan Start: 11/29/22 08:35 Freq: Status: Active Protocol: Document 12/20/22 10:38 TH (Rec: 12/20/22 15:51 TH [id number]) Physical Therapy Assessment Assessment Summary Assessment Pt is making good progress as demonstrated by decreased symptoms and improved ability to sleep at night. Will likely dc in [facility] next 1-2 visits. Physical Therapy Plan Frequency and Duration Frequency of Treatment 1-2x/wk Duration of treatment (weeks) 12 Plan of Care Start Date 11/29/22 Plan of Care End Date 02/21/23 Therapeutic Interventions Therapeutic Interventions Home Exercise Program,Joint Mobilizations,Manual Therapy, Neuromuscular Re-education, Patient/Caregiver Education, Self-Care/Home Management,Soft Tissue Mobilization,Taping, Therapeutic Activities, Therapeutic Exercises Modalities Cold Pack/Ice Massage,Electric Stimulation,Traction- Mechanical,Ultrasound Next Visit Focus/Plan Next Visit Plan anti rotation ex.
--- NOTE | 2022-12-27 16:26 | PT.OTN ---
Current Diagnoses Low back pain, unspecified (12/27/22) Physical Therapy Treatment Note PT-OP-A Visit Information Start: 11/29/22 08:35 Freq: Status: Active Protocol: Document 12/27/22 16:19 TH (Rec: 12/27/22 16:26 TH [id number]) Out-Patient Physical Therapy Visit Information Visit Information Visit Type Treatment Note Visit Start Time 15:15 Visit Stop Time 16:00 Total Visit Minutes 45 Visit Number 5 Number of RN DIABETES EDUCATOR Visits 0 PT-OP-B Current Condition Start: 11/29/22 08:35 Freq: Status: Active Protocol: Document 11/29/22 09:45 TH (Rec: 11/29/22 12:17 TH [id number]) Current Condition History of Current Condition Current Complaints Can't sleep through the night History of Current Condition Pt reports lower back ( centralized to lower lumbar region) symptoms started about 2 months ago. Pain is mostly at night and in the morning. Feels better after up and walking around. Early on when symptoms began pt had a brief flare of right sciatic pain then this went away. Prior Treatments and Tests Xray Lumbar spine 09/20/23 MPRESSION: Degenerative disc disease throughout lumbar spine most notably at L5-S1 level progressed since 2013 study. No acute compression fracture or significant spondylolisthesis. Treatment Goals Patient/Caregiver Goals Pt would like to sleep through the night. Currently he awakes in the night due to pain. Using pillow between knees helps. Prior Functional Status Baseline Function- ADL's Independent Baseline Function- Mobility Independent Current Functional Impairments (Reported) Functional Limitations- ADL's IND Functional Limitations- Mobility/Gait IND though prolonged sitting increases pain. PT-OP-C Subjective Start: 11/29/22 08:35 Freq: Status: Active Protocol: Document 12/27/22 16:19 TH (Rec: 12/27/22 16:26 TH [id number]) OP-PT Subjective Patient Comments Patient Comments Pt reports symptoms have been minimal , he has been able to sleep throughout the night and is not stiff in the AM consistently for the last week . Pt. also reports feeling overall less stiff. Patient Reported Progress Improving PT-OP-J Posture/Palpation/Skin Start: 11/29/22 08:35 Freq: Status: Active Protocol: Document 11/29/22 09:45 TH (Rec: 11/29/22 12:17 TH [id number]) Posture Evaluation Comments Posture Comments R trunk concave, LLE increased ER, R innominate ant. rot., L trunk ant.rotation, decreased lumbar lordosis, Left gluteus mm atrophy compared to right, R LE functionally shorter than left Palpation Assessment Location Lumbar Palpation Details No pain with palpation to lumbar paraspinals PT-OP-K Range of Motion Start: 11/29/22 08:35 Freq: Status: Active Protocol: Document 11/29/22 09:45 TH (Rec: 11/29/22 12:17 TH [place] [id number]) Lumbar Spine Range of Motion Lumbar Spine Active Percentage Testing Position Standing Comments Flex: WNL Ext: WNL rot. r/l WFL PT-OP-Q Treatments Start: 11/29/22 08:35 Freq: Status: Active Protocol: Document 12/27/22 16:19 TH (Rec: 12/27/22 16:26 TH [place] [id number]) Therapeutic Exercises Other Exercises anti rotation Comments 1 x 10 bilat blue band on wall open book Comments 1 x 10 each side articulating bridge Comments 2 x 10 Rib tuck in supine Comments 1 x 10 APT/PPT Comments 1 x10 for both PT-OP-R Modalities Start: 11/29/22 08:35 Freq: Status: Active Protocol: Document 12/13/22 15:50 TH (Rec: 12/13/22 16:01 TH [place] [id number]) Spinal Traction Traction Treatment Lumbar traction Method Mechanical Traction Treatment Comment Dalia lumbar traction PT-OP-T Assessment and Plan Start: 11/29/22 08:35 Freq: Status: Active Protocol: Document 12/27/22 16:19 TH (Rec: 12/27/22 16:26 TH [id number]) Physical Therapy Assessment Goals Two Impairment Difficulty sleeping Short Term Goal (STG) Pt will sleep with 50 % less interruptionsdue to pain. STG Duration 6 weeks Section Forest Fire Warden Goal (LTG) Pt will sleep without interruptions due to pain. LTG Duration 12 weeks One Impairment Prolonged sitting is difficult . Short Term Goal (STG) Pt will be able to sit for > = 30 min with pain > = 4/10 lower back pain. STG Duration 6 weeks Residential Goal (LTG) Pt will be able to sit for > = 45 min with minimal to no lower back pain. LTG Duration 12 weeks Physical Therapy Plan Frequency and Duration Frequency of Treatment 1-2x/wk Duration of treatment (weeks) 12 Plan of Care Start Date 11/29/22 Plan of Care End Date 02/21/23 Therapeutic Interventions Therapeutic Interventions Home Exercise Program,Joint Mobilizations,Manual Therapy, Neuromuscular Re-education, Patient/Caregiver Education, Self-Care/Home Management,Soft Tissue Mobilization,Taping, Therapeutic Activities, Therapeutic Exercises Modalities Cold Pack/Ice Massage,Electric Stimulation,Traction- Mechanical,Ultrasound
--- NOTE | 2023-01-03 12:17 | PT.OTN ---
Current Diagnoses Low back pain, unspecified (01/03/23) Physical Therapy Treatment Note PT-OP-A Visit Information Start: 11/29/22 08:35 Freq: Status: Active Protocol: Document 01/03/23 10:26 TH (Rec: 01/03/23 12:17 TH [id number]) Out-Patient Physical Therapy Visit Information Visit Information Visit Type Treatment Note Visit Start Time 09:45 Visit Stop Time 10:15 Total Visit Minutes 45 Visit Number 6 Number of FLEET MANAGER Visits 0 PT-OP-B Current Condition Start: 11/29/22 08:35 Freq: Status: Active Protocol: Document 11/29/22 09:45 TH (Rec: 11/29/22 12:17 TH [id number]) Current Condition History of Current Condition Current Complaints Can't sleep through the night History of Current Condition Pt reports lower back ( centralized to lower lumbar region) symptoms started about 2 months ago. Pain is mostly at night and in the morning. Feels better after up and walking around. Early on when symptoms began pt had a brief flare of right sciatic pain then this went away. Prior Treatments and Tests Xray Lumbar spine 09/20/23 MPRESSION: Degenerative disc disease throughout lumbar spine most notably at L5-S1 level progressed since 2013 study. No acute compression fracture or significant spondylolisthesis. Treatment Goals Patient/Caregiver Goals Pt would like to sleep through the night. Currently he awakes in the night due to pain. Using pillow between knees helps. Prior Functional Status Baseline Function- ADL's Independent Baseline Function- Mobility Independent Current Functional Impairments (Reported) Functional Limitations- ADL's IND Functional Limitations- Mobility/Gait IND though prolonged sitting increases pain. PT-OP-C Subjective Start: 11/29/22 08:35 Freq: Status: Active Protocol: Document 01/03/23 10:26 TH (Rec: 01/03/23 12:17 TH [id number]) OP-PT Subjective Patient Comments Patient Comments Pt had a flare up of lbp after attempting to sleep on his stomach last night. Otherwise pain/stiffness has progressively decreasing. PT-OP-J Posture/Palpation/Skin Start: 11/29/22 08:35 Freq: Status: Active Protocol: Document 11/29/22 09:45 TH (Rec: 11/29/22 12:17 TH [id number]) Posture Evaluation Comments Posture Comments R trunk concave, LLE increased ER, R innominate ant. rot., L trunk ant.rotation, decreased lumbar lordosis, Left gluteus mm atrophy compared to right, R LE functionally shorter than left Palpation Assessment Location Lumbar Palpation Details No pain with palpation to lumbar paraspinals PT-OP-K Range of Motion Start: 11/29/22 08:35 Freq: Status: Active Protocol: Document 11/29/22 09:45 TH (Rec: 11/29/22 12:17 TH [id number]) Lumbar Spine Range of Motion Lumbar Spine Active Percentage Testing Position Standing Comments Flex: WNL Ext: WNL rot. r/l WFL PT-OP-Q Treatments Start: 11/29/22 08:35 Freq: Status: Active Protocol: Document 01/03/23 10:26 TH (Rec: 01/03/23 12:17 TH [id number]) Therapeutic Exercises Other Exercises back extension on central african ball Comments 1 x 10 5 sec hold cues for gluteus activation overhead reach Comments with 7 lb weight and rib tuck Rib tuck in supine Comments 1 X10 hold 5 sec Self-Care/Home Management Treatment Education Patient Education Home Exercise Program Other Education Access Code: [email or web address] URL: [email or web address] Date: 01/03/2023 Prepared by: Lisa Austin Exercises Supine Hamstring Stretch with Strap - 1 x daily - 7 x weekly - 1 sets - 3 reps - 30 sec hold Hooklying Isometric Clamshell - 1 x daily - 7 x weekly - 2 sets - 10 reps Standing Anatomical Position with Scapular Retraction and Depression at Wall - 1 x daily - 7 x weekly - 1 sets - 5 reps - 10 sec hold Supine Anterior Pelvic Tilt - 1 x daily - 7 x weekly - 1 sets - 10 reps Supine Posterior Pelvic Tilt - 1 x daily - 7 x weekly - 1 sets - 10 reps Half Kneeling Hip Flexor Stretch with Tri-Planar Reach - 1 x daily - 7 x weekly - 1 sets - 3 reps - 30 sec hold Child's Pose with Thread the Needle - 1 x daily - 7 x weekly - 1 sets - 3 reps - 30- 60 sec hold Supine Bridge with Spinal Articulation - 1 x daily - 7 x weekly - 1 sets - 10 reps Hip Hiking on Step - 1 x daily - 7 x weekly - 1 sets - 10 reps Standing Hip Flexor Stretch on Chair - 1 x daily - 7 x weekly - 1 sets - 3 reps - 30- 60 sec hold Sidelying Open Book Thoracic Lumbar Rotation and Extension - 1 x daily - 7 x weekly - 3 sets - 10 reps Overhead Reach on Foam Roll - 1 x daily - 7 x weekly - 1-2 sets - 10 reps Prone Press Up On Elbows - 1 x daily - 7 x weekly - 1-2 sets - 10 reps - 3 sec hold PT-OP-R Modalities Start: 11/29/22 08:35 Freq: Status: Active Protocol: Document 01/03/23 10:26 TH (Rec: 01/03/23 12:17 TH [id number]) Spinal Traction Traction Treatment Gómez Traction Treatment Comment lumbar spine PT-OP-T Assessment and Plan Start: 11/29/22 08:35 Freq: Status: Active Protocol: Document 01/03/23 10:26 TH (Rec: 01/03/23 12:17 TH [id number]) Physical Therapy Assessment Goals Two Impairment Difficulty sleeping Short Term Goal (STG) Pt will sleep with 50 % less interruptionsdue to pain. STG Duration 6 weeks Net Software Developer Goal (LTG) Pt will sleep without interruptions due to pain. LTG Duration 12 weeks One Impairment Prolonged sitting is difficult . Short Term Goal (STG) Pt will be able to sit for > = 30 min with pain > = 4/10 lower back pain. STG Duration 6 weeks Longterm Goal (LTG) Pt will be able to sit for > = 45 min with minimal to no lower back pain. LTG Duration 12 weeks Assessment Summary Assessment Aside from yesterday's flare up pt has been progressing well. Focused on core strengthening ex. to help support lumbar spine as pt sleeps and with activities. Discussed that pain may not be avoidable with prone sleeping due to severity of degenerative changes of the spine. Physical Therapy Plan Frequency and Duration Frequency of Treatment 1-2x/wk Duration of treatment (weeks) 12 Plan of Care Start Date 11/29/22 Plan of Care End Date 02/21/23 Therapeutic Interventions Therapeutic Interventions Home Exercise Program,Joint Mobilizations,Manual Therapy, Neuromuscular Re-education, Patient/Caregiver Education, Self-Care/Home Management,Soft Tissue Mobilization,Taping, Therapeutic Activities, Therapeutic Exercises Modalities Cold Pack/Ice Massage,Electric Stimulation,Traction- Mechanical,Ultrasound Next Visit Focus/Plan Next Visit Plan core training Pull downs Traction if needed
--- NOTE | 2023-01-10 11:50 | PT.OPDS ---
Current Diagnoses Low back pain, unspecified (01/10/23) Visit Care Team Role Provider Type Elma Piper MD Attending Provider Physician Family Provider Primary Care Provider Referring Provider Specialty: Internal Medicine Address: [place], [address] Phone: Email: Visit Number Visit Number 7 Discharge Summary PT-OP-B Current Condition Start: 11/29/22 08:35 Freq: Status: Active Protocol: Document 11/29/22 09:45 TH (Rec: 11/29/22 12:17 TH [id number]) Current Condition History of Current Condition Current Complaints Can't sleep through the night History of Current Condition Pt reports lower back ( centralized to lower lumbar region) symptoms started about 2 months ago. Pain is mostly at night and in the morning. Feels better after up and walking around. Early on when symptoms began pt had a brief flare of right sciatic pain then this went away. Prior Treatments and Tests Xray Lumbar spine 09/20/23 MPRESSION: Degenerative disc disease throughout lumbar spine most notably at L5-S1 level progressed since 2013 study. No acute compression fracture or significant spondylolisthesis. Treatment Goals Patient/Caregiver Goals Pt would like to sleep through the night. Currently he awakes in the night due to pain. Using pillow between knees helps. Prior Functional Status Baseline Function- ADL's Independent Baseline Function- Mobility Independent Current Functional Impairments (Reported) Functional Limitations- ADL's IND Functional Limitations- Mobility/Gait IND though prolonged sitting increases pain. PT-OP-C Subjective Start: 11/29/22 08:35 Freq: Status: Active Protocol: Document 01/10/23 10:11 TH (Rec: 01/10/23 11:49 TH [id number]) OP-PT Subjective Patient Comments Patient Comments Pt reports sleeping on his stomach continues to aggravate symptoms. However, he did state that he has been consistently been able to sleep throughout the night and no symptoms in AM. Patient Reported Progress Improving PT-OP-J Posture/Palpation/Skin Start: 11/29/22 08:35 Freq: Status: Active Protocol: Document 01/10/23 10:11 TH (Rec: 01/10/23 11:49 TH [id number]) Posture Evaluation Position Standing Evaluation View 1 Comments Posture Comments Noted right hip slightly ant rot. encouraged pt to keep up with hip flex. stretch. Increased bilat. ankle pronation l> r. PT-OP-K Range of Motion Start: 11/29/22 08:35 Freq: Status: Active Protocol: Document 11/29/22 09:45 TH (Rec: 11/29/22 12:17 TH [id number]) Lumbar Spine Range of Motion Lumbar Spine Active Percentage Testing Position Standing Comments Flex: WNL Ext: WNL rot. r/l WFL PT-OP-T Assessment and Plan Start: 11/29/22 08:35 Freq: Status: Active Protocol: Document 01/10/23 10:11 TH (Rec: 01/10/23 11:49 TH [id number]) Physical Therapy Assessment Goals Two Impairment Difficulty sleeping Short Term Goal (STG) Pt will sleep with 50 % less interruptionsdue to pain. STG Duration 6 weeks MET 01/10/23 Long-Term Goal (LTG) Pt will sleep without interruptions due to pain. LTG Duration MET One Impairment Prolonged sitting is difficult . Short Term Goal (STG) Pt will be able to sit for > = 30 min with pain > = 4/10 lower back pain. STG Duration 6 weeks MET Long-Term Goal (LTG) Pt will be able to sit for > = 45 min with minimal to no lower back pain. LTG Duration MET 01/10/23 Assessment Summary Assessment Pt has made excellent progress . He is able to sleep throughout the night and no longer has stiffness in AM. Noted increased ankle pronation bilaterally. Added ankle strength ex. to help with supporting foundation and thus stabilizing up madhu chain . Pt has MET all goals and has been DC from PT. Physical Therapy Plan Discharge Physical Therapy Discharge Comments See assessment
== END 2023-01-12 15:11 | disposition home or self-care (01) ==
LOC: PHYS 09:45
PROVIDERS: Family Provider Internal Medicine; PCP Internal Medicine; Referring Provider Internal Medicine; Visit Provider Internal Medicine
DX: M54.50 Low back pain, unspecified (principal)
CPT/HCPCS: 97012; 97110; 97140; 97161

== ENCOUNTER 2023-08-23 09:34 | Observation (INO) | payer MEDICARE, OTHER, SELFPAY ==
[2023-08-23] VITALS (30 sets, daily range): BP systolic 137–170; BP diastolic 67–106; PULSE 50–66; RESP 14–23; TEMP 35.8–35.9; O2SAT 85–100; BMI 27.8
--- NOTE | 2023-08-23 10:00 | DI.RAD.S_ITS ---
PROCEDURE: XR CHEST 1V INDICATIONS: chest pain TECHNIQUE: One view of the chest was acquired. COMPARISON: [facility], CR, XR CHEST 2V, 08/06/2019, 13:51. FINDINGS: Surgical changes and devices: None. Lungs and pleura: Lungs are clear. No pleural effusions or pneumothorax. Mediastinum: Mediastinal contours appear normal. Elevation of left hemidiaphragm. Heart size is normal. Bones and chest wall: No suspicious bony lesions. Overlying soft tissues appear unremarkable. IMPRESSION: No acute cardiopulmonary process. Dictated by: Andres Almanzar M.D. on 08/23/2023 at 10:24 Approved by: Andres Almanzar M.D. on 08/23/2023 at 10:24
[2023-08-23 10:38] LABS: Add Manual Diff / Slide Review NO; Basophils Absolute Auto 0 /uL (0-100); Basophils Percent Auto 0.6 % (0-2); Eosinophils Absolute Auto 100 /uL (0-450); Eosinophils Percent Auto 2.1 % (2-4); Hematocrit 45.1 % (41-53); Hemoglobin 15.5 g/dL (13.5-17.5); Lymphocytes Absolute Auto 900 /uL (1100-4500); Lymphocytes Percent Auto 14.8 % (25-40); Mean Corpuscular HGB Conc 34.2 % (30-36); Mean Corpuscular Hemoglobin 30.7 PG (26-34); Mean Corpuscular Volume 89.7 fL (80-100); Monocytes Absolute Auto 300 /uL (0-900); Monocytes Percent Auto 5.4 % (3-14); Neutrophils Absolute Auto 4600 /uL (1500-7000); Neutrophils Percent Auto 77.1 % (50-75); Platelet Count 184 X10^3/uL (150-400); Red Blood Cell Count 5.03 X10^6/uL (4.5-5.9); Red Cell Distribution Width 13.3 % (11.6-14.8)
[2023-08-23 10:43] LABS: Prothrombin Time 11.4 SECONDS (10.1-12.7)
[2023-08-23 10:46] LABS: PTT Partial Thromboplastin Tim 33 SECONDS (26-36)
[2023-08-23 10:47] LABS: Alanine Aminotransferase 43 IU/L (<50); Albumin 4.3 g/dL (3.5-5.0); Albumin Globulin Ratio 1.3 (1.0-2.8); Alkaline Phosphatase 75 U/L (38-126); Aspartate Aminotransferase 35 IU/L (17-59); BUN Creatinine Ratio 14.2 (6-22); Bilirubin Total 2.8 mg/dL (0.2-1.3); Blood Urea Nitrogen 15 mg/dL (9-20); Calcium 9.4 mg/dL (8.4-10.2); Carbon Dioxide 30 mmol/L (22-32); Chloride 101 mmol/L (98-107); Creatine Kinase 136 U/L (55-170); Estimated Glomerular Filt Rate > 60 mL/min (>60); Globulin 3.2 g/dL (1.7-4.1); Glucose 130 mg/dL (80-110); HEMOLYSIS 21 (0-50); Lipase 358 U/L (23-300); Magnesium 1.9 mg/dL (1.6-2.3); Potassium 4.4 mmol/L (3.4-5.1); Sodium 137 mmol/L (137-145); Total Protein 7.5 g/dL (6.3-8.2)
[2023-08-23 10:58] LABS: Troponin I < 0.012 ng/mL (0.01-0.034)
--- NOTE | 2023-08-23 11:01 | DI.CT.S_ITS ---
P the ROCEDURE: CT FACIAL BONES WO CON INDICATIONS: Fall/pain TECHNIQUE: Noncontrast 2.5 mm thick axial images acquired from the mandible through the frontal sinuses, with coronal and sagittal reformatting. For radiation dose reduction, the following was used: automated exposure control, adjustment of mA and/or kV according to patient size. COMPARISON: None. FINDINGS: Image quality: Excellent. Bones and teeth: Orbital olson are intact. Sinus olson show no fracture or deformity. Nasal bones and septum are intact. Visualized portions of the mandible demonstrate no fractures or subluxation. Zygomatic arches are intact. Pterygoid plates are intact. Visualized portions of the skull base and auditory canals are intact. Sinuses: Left maxillary sinus mucosal thickening with small air-fluid level. Paranasal sinuses are otherwise aerated, without fluid levels, mucosal thickening, or mucoceles. Mastoid air cells are aerated. Soft tissues: Right periorbital swelling. Intact right globe. No masses or fluid collections. No enlarged lymph nodes. No soft tissue lacerations or debris. Vascular: Visualized vascular structures appear normal in the absence of contrast. Bony vascular foramina and canals are intact. IMPRESSION: 1. No acute displaced facial bone fracture or mandibular fracture noted. 2. Right periorbital swelling. Right globe intact. 3. Mild acute on chronic left maxillary sinusitis. Dictated by: Marco Antonio Medina M.D. on 08/23/2023 at 11:39 Approved by: Marco Antonio Medina M.D. on 08/23/2023 at 11:41
--- NOTE | 2023-08-23 11:01 | DI.CT.S_ITS ---
PROCEDURE: CT CERVICAL SPINE WO CON INDICATIONS: Fall/pain TECHNIQUE: Noncontrast 3 mm thick sections acquired from the skull base to the T4 level. Sagittal and coronal reformats were then constructed. For radiation dose reduction, the following was used: automated exposure control, adjustment of mA and/or kV according to patient size. COMPARISON: None. FINDINGS: Image quality: Excellent. Bones: No fractures or dislocations. Visualized superior ribs are intact. Cervical spondylitic change. Multilevel disc height loss and uncovertebral joint hypertrophy with bony foraminal narrowing. Soft tissues: Prevertebral soft tissues are normal in thickness. No paravertebral hematomas. No apical pneumothoraces. IMPRESSION: No evidence acute cervical fracture or dislocation. Cervical spondylosis. Dictated by: Marco Antonio Medina M.D. on 08/23/2023 at 11:41 Approved by: Marco Antonio Medina M.D. on 08/23/2023 at 11:47
--- NOTE | 2023-08-23 11:01 | DI.CT.S_ITS ---
PROCEDURE: CT ANGIO HEAD AND NECK INDICATIONS: Syncope/altered mental status TECHNIQUE: After the administration of intravenous contrast, 1 mm thick sections acquired from the aortic arch through the [place] of [place]. 3-dimensional omqekxw-mfegnjspt-gzswbjywpo (MIP) and/or volume rendering reformats were acquired of the central intracranial vasculature and neck separately. For radiation dose reduction, the following was used: automated exposure control, adjustment of mA and/or kV according to patient size. COMPARISON: None. FINDINGS: Image quality: Diagnostic. BRAIN: Please refer to separately dictated CT of the head. HEAD CT ANGIOGRAPHY: Anterior circulation: Intracranial internal carotid arteries are normal in size and flow. Mild atherosclerotic vascular calcifications. The flow within the paired anterior cerebral arteries is normal and symmetric. The flow within the middle cerebral arteries is normal and symmetric. The anterior communicating artery is seen. No aneurysms are seen. Posterior circulation: Visualized portions of the vertebral arteries demonstrate normal caliber, and join to form a normal appearing basilar artery. origin of the right BEATER LEAD. Flow within the posterior cerebral arteries is normal and symmetric. No aneurysms are seen. NECK CT ANGIOGRAPHY: Carotid system: The great vessels demonstrate a conventional anatomy as they arise from the aortic arch. Mild atherosclerotic vascular calcifications. The origins of the common carotid arteries appear patent. The common carotid arteries demonstrate normal caliber and courses. The bifurcation regions are both widely patent. The internal carotid arteries demonstrate normal calibers and courses. Posterior circulation: The origins of the vertebral arteries both appear widely patent. The more superior extracranial portions of both vertebral arteries also demonstrate normal courses and calibers. They join to form a normal appearing basilar artery. Soft tissues: Visualized neck soft tissues demonstrate no suspicious abnormalities. Bilateral lens replacements. Bones: No suspicious bony lesions. Visualized cervical spine appears normally aligned. Degenerative changes of the spine. Mucosal thickening of the left maxillary sinus. Nondisplaced fracture for the left mastoid air cells which spares the otic capsule. Partial opacification of left mastoid air cells. The fracture extends along the superior aspect of the mastoid air cells with trace adjacent pneumocephalus. IMPRESSION: 1. The arteries of the head and neck are patent and normal in caliber with mild atherosclerotic vascular calcifications. No large vessel occlusion, hemodynamically significant stenosis, aneurysm or AVM. 2. Nondisplaced fracture through the left mastoid air cells which spares the otic capsule. There is partial opacification of left mastoid air cells. The fracture extends along the superior aspect of the mastoid air cells with trace adjacent pneumocephalus. 3. Please refer to separately dictated CT of the head with regards to intracranial findings. Any quantitative measurements of stenosis were performed using NASCET criteria. Dictated by: Andres Almanzar M.D. on 08/23/2023 at 11:36 Approved by: Andres Almanzar M.D. on 08/23/2023 at 11:45
--- NOTE | 2023-08-23 11:01 | DI.CT.S_ITS ---
PROCEDURE: CT HEAD/BRAIN WO CON INDICATIONS: Syncope/altered mental status TECHNIQUE: Noncontrast 4.5 mm thick angled axial sections acquired from the foramen magnum to the vertex, with coronal and sagittal reformats. For radiation dose reduction, the following was used: automated exposure control, adjustment of mA and/or kV according to patient size. COMPARISON: None. FINDINGS: Image quality: Excellent. CSF spaces: Basal cisterns are patent. Small foci of subarachnoid bleed are seen involving frontal lobes bilaterally, the right parietal lobe and the left temporal lobe. Suspect trace in blood within the sylvian fissures bilaterally. The ventricles are symmetric in size and shape. Brain: Question trace intraparenchymal bleed. No intracranial masses. There is cerebral volume loss for age, with resultant ventricular and sulcal prominence. There are periventricular and deep white matter chronic small vessel ischemic changes. There is intracranial internal carotid artery atherosclerosis. Skull and face: Calvarium and visualized facial bones appear intact, without suspicious lesions. Sinuses: There is a small air-fluid level in the left maxillary sinus. The mastoids are clear. IMPRESSION: 1. Small subarachnoid hemorrhage bilaterally as described. Question trace intraparenchymal hemorrhage. No mass effect or midline shift. 2. Small air-fluid level in the left maxillary sinus. The result was discussed with Dr. Johnston in ER. Dictated by: Edgar Vaughn M.D. on 08/23/2023 at 11:23 Approved by: Edgar Vaughn M.D. on 08/23/2023 at 11:35
--- NOTE | 2023-08-23 11:08 | ED.SYNCOPE ---
HPI - Syncope <Italo Johnston MD - Last Filed: 09/03/23 07:41> General Chief Complaint: Syncope Stated Complaint: passed out hit head dizziness visible blood Time Seen by Provider: 08/23/23 10:43 Source: patient Mode of arrival: Ambulatory History of Present Illness HPI narrative: Patient here with his . Had unwitnessed syncope episode around 8:00 a.m. this morning. Patient did return home his usual time when he went out for a walk with the dog to get the mail. Patient does not recall any pre syncope events or symptoms. No headache chest pain dizziness abdominal pain back pain. No recent illness. No nausea vomiting diarrhea. No black or bloody stools. No history of heart attack strokes or diabetes. No history of arrhythmia. No history of seizures. Patient does recall waking his way back home. Next thing he remembers he was on the ground and picking up the mail from the ground. When he arrived home noticed that he was very diaphoretic. He was confused for a while. At this time he is at baseline. This is not happened to him before. No history of irregular heartbeats or heart valve disease or carotid stenosis. No history of blood clots in legs or lungs before. No history of stroke. He complains of pain in the back of his head where he has a small bruise. Complains of chin pain where on exam skin exam is unremarkable. Related Data Home Medications Medication Instructions Recorded Confirmed allopurinol 300 mg tablet 300 mg PO DAILY 01/02/19 08/23/23 losartan 100 mg tablet 100 mg PO DAILY 01/02/19 08/23/23 Previous Rx's Medication Instructions Recorded lamotrigine 150 mg tablet 150 mg PO QDAY #90 tabs 02/11/20 (Lamictal) ondansetron HCl 4 mg tablet 4 mg PO Q8H PRN nausea and 08/24/23 vomiting 30 days #30 tabs Allergies Allergy/AdvReac Type Severity Reaction Status Date / Time atorvastatin [ATORVASTATIN] Allergy Intermediate Verified 08/23/23 10:41 ciprofloxacin [From CIPRO] Allergy Intermediate Verified 08/23/23 10:41 erythromycin base Allergy Mild HEACACHE, Verified 08/23/23 10:41 [ERYTHROMYCIN BASE] SWELLING, FEEL TERRIBLE Review of Systems <Italo Johnston MD - Last Filed: 09/03/23 07:41> Review of Systems Narrative: GENERAL: negative chills, fatigue, malaise, fever, sweats. HEENT: negative sinus pain, ear pain, sore throat RESPIRATORY: negative dyspnea, cough CARDIOVASCULAR: negative chest pain, palpitations, positive syncope GASTROINTESTINAL: negative nausea, vomiting, abdominal pain : negative dysuria, frequency, hematuria MUSCULOSKELETAL: negative muscle or bony pain SKIN: negative rash, skin lesions NEUROLOGIC: negative weakness, numbness ROS Unobtainable: All systems reviewed & are unremarkable except as noted in HPI and below Patient History <Italo Johnston MD - Last Filed: 09/03/23 07:41> Family History Father No problems noted. Mother No problems noted. Social History Smoking Status: Never smoker Smoking Status: Never smoker alcohol intake frequency: other Substance Use Type: does not use Exam <Italo Johnston MD - Last Filed: 09/03/23 07:41> Narrative Exam Narrative: GENERAL: in no distress, not toxic not dyspneic HEAD: Normocephalic. Ecchymosis on the left of midline occipital scalp. Mild tenderness. No crepitus or step-off. Skin is intact. EYES: Pupils equal round ENT: Mucous membranes moist. Mild tenderness to the chin but no gross deformity or skin injury or erythema or bruising. No malocclusion or trismus. Examination right ear, clear canal, clear tympanic membrane. No effusion. No blood. Examination left ear. No blood in canal. There is erythema of the surrounding tympanic membrane but no perforation. No effusion. No blood. Mild tenderness to the left mastoid area. No deformity or protrusion of the external ear. No CSF or clear fluid in the canal. Patient is able to hear out of the left ear. NECK: Trachea midline. No midline tenderness or step-off of the cervical thoracic or lumbar spine. No carotid bruit CARDIOVASCULAR: Regular rate and rhythm RESPIRATORY: Clear to auscultation. Breath sounds equal bilaterally. No wheezes, rales, or rhonchi. GASTROINTESTINAL: Abdomen soft, non-tender EXTREMITIES: No gross deformities. Nontender bilateral shoulders elbows wrists pelvis hips knees and ankles. BACK: No flank tenderness. NEURO: AOx4. 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 Fast exam is negative. No facial droop. Smiles with ease. Opens mouth without difficulty. Opens and closes eyes without difficulty. SKIN: Warm and dry PSYCH: Not anxious, is cooperative Initial Vital Signs Initial Vital Signs: Vital Signs Temperature 96.4 F L 08/23/23 09:35 Pulse Rate 51 L 08/23/23 09:35 Respiratory Rate 17 08/23/23 09:35 Blood Pressure 170/79 H 08/23/23 09:35 Pulse Oximetry 98 08/23/23 09:35 Oxygen Delivery Method Room Air 08/23/23 09:35 <Ara Li MD - Last Filed: 08/23/23 19:37> Initial Vital Signs Initial Vital Signs: Vital Signs Temperature 96.4 F L 08/23/23 09:35 Pulse Rate 51 L 08/23/23 09:35 Respiratory Rate 17 08/23/23 09:35 Blood Pressure 170/79 H 08/23/23 09:35 Pulse Oximetry 98 08/23/23 09:35 Oxygen Delivery Method Room Air 08/23/23 09:35 Course <Italo Johnston MD - Last Filed: 09/03/23 07:41> Orders Ordered: Discontinued Medications Acetaminophen (Acetaminophen 325 Mg Tablet) 975 mg PO NOW ONE Stop: 08/23/23 14:59 Last Admin: 08/23/23 15:05 Dose: 975 mg Documented By: TAYLA Acetaminophen (Acetaminophen 325 Mg Tablet) 650 mg PO Q6H [facility] Last Admin: 08/23/23 21:59 Dose: Not Given Documented By: CT Acetaminophen (Acetaminophen 325 Mg Tablet) 650 mg PO Q6H [facility] Last Admin: 08/24/23 15:41 Dose: Not Given Documented By: Admin: 08/24/23 08:23 Dose: 650 mg Documented By: Admin: 08/24/23 03:19 Dose: Not Given Documented By: Admin: 08/23/23 21:54 Dose: 650 mg Documented By: CT Hydrocodone Bitart/Acetaminophen (Hydrocodone/Acet 5/325 Tablet) 2 tab PO Q4H PRN PRN Reason: Pain, Severe (7-10) Last Admin: 08/24/23 13:57 Dose: 2 tab Documented By: Aspirin (Aspirin 81 Mg Chew Tab) 324 mg PO NOW ONE Stop: 08/23/23 10:01 Last Admin: 08/23/23 11:38 Dose: Not Given Documented By: TAYLA Calcium Carbonate (Calcium Carbonate 500 Mg Tab) 1,000 mg PO Q4HR PRN PRN Reason: Dyspepsia Hydromorphone HCl (Hydromorphone 0.5 Mg Inj) 0.5 mg IV NOW ONE Stop: 08/23/23 19:32 Last Admin: 08/23/23 19:45 Dose: 0.5 mg Documented By: TAYLA Sodium Chloride (Normal Saline 0.9%) 500 mls @ 1,000 mls/hr IV BOLUS ONE Stop: 08/23/23 11:30 Last Infusion: 08/23/23 14:56 Dose: Infused Documented By: Admin: 08/23/23 12:12 Dose: 1,000 mls/hr Documented By: TAYLA Naloxone HCl (Naloxone 0.4 Mg/Ml Vial) 0.2 mg IV Q2MIN PRN PRN Reason: Opiate Reversal Ondansetron HCl (Ondansetron 4 Mg/2 Ml Inj) 4 mg IV NOW ONE Stop: 08/23/23 16:54 Last Admin: 08/23/23 17:16 Dose: 4 mg Documented By: TAYLA Ondansetron HCl (Ondansetron 4 Mg/2 Ml Inj) 4 mg IV Q8HR PRN PRN Reason: Nausea And Vomiting Last Admin: 08/24/23 08:23 Dose: 4 mg Documented By: ROSALINE Ondansetron HCl (Ondansetron 4 Mg Odt) 4 mg PO Q8HR PRN PRN Reason: Nausea And Vomiting Last Admin: 08/23/23 21:55 Dose: 4 mg Documented By: CT Ondansetron HCl (Ondansetron 4 Mg Odt) 4 mg PO Q4HR PRN PRN Reason: Nausea And Vomiting Ondansetron HCl (Ondansetron 4 Mg/2 Ml Inj) 4 mg IV Q4HR PRN PRN Reason: Nausea And Vomiting Last Admin: 08/24/23 13:57 Dose: 4 mg Documented By: Pantoprazole Sodium (Pantoprazole Dr 20 Mg Tablet) 20 mg PO 0600 JUAN JOSE Last Admin: 08/24/23 06:25 Dose: Not Given Documented By: CT Vital Signs Vital signs: Vital Signs - 8 hr 08/23/23 12:02 08/23/23 12:02 08/23/23 12:30 Pulse Rate 54 L 58 L Respiratory Rate 16 16 Blood Pressure 160/106 H Pulse Oximetry 99 100 Oxygen Delivery Method Room Air Room Air 08/23/23 12:30 08/23/23 13:00 08/23/23 13:00 Pulse Rate 55 L Respiratory Rate 19 Blood Pressure 162/70 H 165/72 H Pulse Oximetry 100 Oxygen Delivery Method 08/23/23 13:30 08/23/23 13:30 08/23/23 14:00 Pulse Rate 57 L 55 L Respiratory Rate 21 16 Blood Pressure 152/72 H Pulse Oximetry 98 99 Oxygen Delivery Method 08/23/23 14:00 08/23/23 14:30 08/23/23 14:30 Pulse Rate 54 L Respiratory Rate 18 Blood Pressure 152/72 H 148/75 H Pulse Oximetry 97 Oxygen Delivery Method Room Air 08/23/23 15:03 08/23/23 15:04 08/23/23 15:04 Pulse Rate 59 L 54 L Respiratory Rate 23 19 Blood Pressure 169/77 H Pulse Oximetry 96 97 Oxygen Delivery Method 08/23/23 15:30 08/23/23 15:30 08/23/23 16:00 Pulse Rate 58 L 65 Respiratory Rate 18 17 Blood Pressure 146/76 H Pulse Oximetry 97 99 Oxygen Delivery Method Room Air 08/23/23 16:30 08/23/23 17:10 08/23/23 17:12 Pulse Rate 60 62 63 Respiratory Rate 19 23 23 Blood Pressure Pulse Oximetry 97 99 96 Oxygen Delivery Method Room Air 08/23/23 17:12 Pulse Rate Respiratory Rate Blood Pressure 157/70 H Pulse Oximetry Oxygen Delivery Method <Ara Li MD - Last Filed: 08/23/23 19:37> Orders Ordered: Discontinued Medications Acetaminophen (Acetaminophen 325 Mg Tablet) 975 mg PO NOW ONE Stop: 08/23/23 14:59 Last Admin: 08/23/23 15:05 Dose: 975 mg Documented By: TAYLA Acetaminophen (Acetaminophen 325 Mg Tablet) 650 mg PO Q6H [facility] Last Admin: 08/23/23 21:59 Dose: Not Given Documented By: JUAN Acetaminophen (Acetaminophen 325 Mg Tablet) 650 mg PO Q6H [facility] Last Admin: 08/24/23 15:41 Dose: Not Given Documented By: Admin: 08/24/23 08:23 Dose: 650 mg Documented By: Admin: 08/24/23 03:19 Dose: Not Given Documented By: Admin: 08/23/23 21:54 Dose: 650 mg Documented By: JUAN Hydrocodone Bitart/Acetaminophen (Hydrocodone/Acet 5/325 Tablet) 2 tab PO Q4H PRN PRN Reason: Pain, Severe (7-10) Last Admin: 08/24/23 13:57 Dose: 2 tab Documented By: Aspirin (Aspirin 81 Mg Chew Tab) 324 mg PO NOW ONE Stop: 08/23/23 10:01 Last Admin: 08/23/23 11:38 Dose: Not Given Documented By: TAYLA Calcium Carbonate (Calcium Carbonate 500 Mg Tab) 1,000 mg PO Q4HR PRN PRN Reason: Dyspepsia Hydromorphone HCl (Hydromorphone 0.5 Mg Inj) 0.5 mg IV NOW ONE Stop: 08/23/23 19:32 Last Admin: 08/23/23 19:45 Dose: 0.5 mg Documented By: TAYLA Sodium Chloride (Normal Saline 0.9%) 500 mls @ 1,000 mls/hr IV BOLUS ONE Stop: 08/23/23 11:30 Last Infusion: 08/23/23 14:56 Dose: Infused Documented By: Admin: 08/23/23 12:12 Dose: 1,000 mls/hr Documented By: TAYLA Naloxone HCl (Naloxone 0.4 Mg/Ml Vial) 0.2 mg IV Q2MIN PRN PRN Reason: Opiate Reversal Ondansetron HCl (Ondansetron 4 Mg/2 Ml Inj) 4 mg IV NOW ONE Stop: 08/23/23 16:54 Last Admin: 08/23/23 17:16 Dose: 4 mg Documented By: TAYLA Ondansetron HCl (Ondansetron 4 Mg/2 Ml Inj) 4 mg IV Q8HR PRN PRN Reason: Nausea And Vomiting Last Admin: 08/24/23 08:23 Dose: 4 mg Documented By: ROSALINE Ondansetron HCl (Ondansetron 4 Mg Odt) 4 mg PO Q8HR PRN PRN Reason: Nausea And Vomiting Last Admin: 08/23/23 21:55 Dose: 4 mg Documented By: CT Ondansetron HCl (Ondansetron 4 Mg Odt) 4 mg PO Q4HR PRN PRN Reason: Nausea And Vomiting Ondansetron HCl (Ondansetron 4 Mg/2 Ml Inj) 4 mg IV Q4HR PRN PRN Reason: Nausea And Vomiting Last Admin: 08/24/23 13:57 Dose: 4 mg Documented By: Pantoprazole Sodium (Pantoprazole Dr 20 Mg Tablet) 20 mg PO 0600 JUAN JOSE Last Admin: 08/24/23 06:25 Dose: Not Given Documented By: CT Vital Signs Vital signs: Vital Signs - 8 hr 08/23/23 12:02 08/23/23 12:02 08/23/23 12:30 Pulse Rate 54 L 58 L Respiratory Rate 16 16 Blood Pressure 160/106 H Pulse Oximetry 99 100 Oxygen Delivery Method Room Air Room Air 08/23/23 12:30 08/23/23 13:00 08/23/23 13:00 Pulse Rate 55 L Respiratory Rate 19 Blood Pressure 162/70 H 165/72 H Pulse Oximetry 100 Oxygen Delivery Method 08/23/23 13:30 08/23/23 13:30 08/23/23 14:00 Pulse Rate 57 L 55 L Respiratory Rate 21 16 Blood Pressure 152/72 H Pulse Oximetry 98 99 Oxygen Delivery Method 08/23/23 14:00 08/23/23 14:30 08/23/23 14:30 Pulse Rate 54 L Respiratory Rate 18 Blood Pressure 152/72 H 148/75 H Pulse Oximetry 97 Oxygen Delivery Method Room Air 08/23/23 15:03 08/23/23 15:04 08/23/23 15:04 Pulse Rate 59 L 54 L Respiratory Rate 23 19 Blood Pressure 169/77 H Pulse Oximetry 96 97 Oxygen Delivery Method 08/23/23 15:30 08/23/23 15:30 08/23/23 16:00 Pulse Rate 58 L 65 Respiratory Rate 18 17 Blood Pressure 146/76 H Pulse Oximetry 97 99 Oxygen Delivery Method Room Air 08/23/23 16:30 08/23/23 17:10 08/23/23 17:12 Pulse Rate 60 62 63 Respiratory Rate 19 23 23 Blood Pressure Pulse Oximetry 97 99 96 Oxygen Delivery Method Room Air 08/23/23 17:12 Pulse Rate Respiratory Rate Blood Pressure 157/70 H Pulse Oximetry Oxygen Delivery Method MDM - Syncope <Italo Brennick, MD - Last Filed: 09/03/23 07:41> Lab Data 08/24/23 03:50 08/24/23 03:50 Labs: Lab Results 08/23/23 08/23/23 08/23/23 Range/Units 10:20 11:07 12:15 WBC 6.0 (4.5-11.0) X10^3/uL RBC 5.03 (4.5-5.9) X10^6/uL Hgb 15.5 (13.5-17.5) g/dL Hct 45.1 (41-53) % MCV 89.7 (80-100) fL MCH 30.7 (26-34) PG MCHC 34.2 (30-36) % RDW 13.3 (11.6-14.8) % Plt Count 184 (150-400) X10^3/uL Neut % (Auto) 77.1 H (50-75) % Lymph % (Auto) 14.8 L (25-40) % [place] % (Auto) 5.4 (3-14) % Eos % (Auto) 2.1 (2-4) % Baso % (Auto) 0.6 (0-2) % Neut # (Auto) 4600 (9876-7449) /uL Lymph # (Auto) 900 L (4949-2228) /uL [place] # (Auto) 300 (0-900) /uL Eos # (Auto) 100 (0-450) /uL Baso # (Auto) 0 (0-100) /uL PT 11.4 (10.1-12.7) SECONDS INR 1.0 (0.9-1.3) APTT 33 (26-36) SECONDS D-Dimer 2185 H (<500) ng/ml Sodium 137 (137-145) mmol/L Potassium 4.4 (3.4-5.1) mmol/L Chloride 101 (98-107) mmol/L Carbon Dioxide 30 (22-32) mmol/L BUN 15 (9-20) mg/dL Creatinine 1.06 (0.66-1.25) mg/dL Estimated GFR > 60 (>60) mL/min BUN/Creatinine Ratio 14.2 (6-22) Glucose 130 H (80-110) mg/dL Calcium 9.4 (8.4-10.2) mg/dL Magnesium 1.9 (1.6-2.3) mg/dL Total Bilirubin 2.8 H (0.2-1.3) mg/dL AST 35 (17-59) IU/L ALT 43 (<50) IU/L Alkaline Phosphatase 75 (38-126) U/L Total Creatine Kinase 136 120 (55-170) U/L Troponin I < 0.012 < 0.012 (0.01-0.034) ng/mL Total Protein 7.5 (6.3-8.2) g/dL Albumin 4.3 (3.5-5.0) g/dL Globulin 3.2 (1.7-4.1) g/dL Albumin/Globulin Ratio 1.3 (1.0-2.8) Lipase 358 H (23-300) U/L Imaging Data Chest x-ray: Radiologist's Impression: [address] [address] XRay Report Signed Patient: Orion Osman MR#: [id number] : 1950 Acct:[id number] Age/Sex: 72 / M Date of Service: 08/23/23 Loc: ED Accession Number: [id number] Procedure: XR chest 1V Ordering Provider: Italo Johnston MD PROCEDURE: XR CHEST 1V INDICATIONS: chest pain TECHNIQUE: One view of the chest was acquired. COMPARISON: [facility], , XR CHEST 2V, 08/06/2019, 13:51. FINDINGS: Surgical changes and devices: None. Lungs and pleura: Lungs are clear. No pleural effusions or pneumothorax. Mediastinum: Mediastinal contours appear normal. Elevation of left hemidiaphragm. Heart size is normal. Bones and chest wall: No suspicious bony lesions. Overlying soft tissues appear unremarkable. IMPRESSION: No acute cardiopulmonary process. Dictated by: Andres Almanzar M.D. on 08/23/2023 at 10:24 Approved by: Andres Almanzar M.D. on 08/23/2023 at 10:24 CT scan - head: Radiologist's Impression: [address] [address] [address] Scan Report Signed Patient: Orion Osman MR#: [id number] : 1950 Acct:[id number] Age/Sex: 72 / M Date of Service: 08/23/23 Loc: ED Accession Number: [id number] Procedure: CT head/brain wo con Ordering Provider: Italo Johnston MD PROCEDURE: CT HEAD/BRAIN WO CON INDICATIONS: Syncope/altered mental status TECHNIQUE: Noncontrast 4.5 mm thick angled axial sections acquired from the foramen magnum to the vertex, with coronal and sagittal reformats. For radiation dose reduction, the following was used: automated exposure control, adjustment of mA and/or kV according to patient size. COMPARISON: None. FINDINGS: Image quality: Excellent. CSF spaces: Basal cisterns are patent. Small foci of subarachnoid bleed are seen involving frontal lobes bilaterally, the right parietal lobe and the left temporal lobe. Suspect trace in blood within the sylvian fissures bilaterally. The ventricles are symmetric in size and shape. Brain: Question trace intraparenchymal bleed. No intracranial masses. There is cerebral volume loss for age, with resultant ventricular and sulcal prominence. There are periventricular and deep white matter chronic small vessel ischemic changes. There is intracranial internal carotid artery atherosclerosis. Skull and face: Calvarium and visualized facial bones appear intact, without suspicious lesions. Sinuses: There is a small air-fluid level in the left maxillary sinus. The mastoids are clear. IMPRESSION: 1. Small subarachnoid hemorrhage bilaterally as described. Question trace intraparenchymal hemorrhage. No mass effect or midline shift. 2. Small air-fluid level in the left maxillary sinus. The result was discussed with Dr. Johnston in ER. Dictated by: Edgar Vaughn M.D. on 08/23/2023 at 11:23 Approved by: Edgar Vaughn M.D. on 08/23/2023 at 11:35 CT - cervical spine: Radiologist's Impression: [address] [address] [address] Scan Report Signed Patient: Orion Osman MR#: [id number] : 1950 Acct:[id number] Age/Sex: 72 / M Date of Service: 08/23/23 Loc: ED Accession Number: [id number] Procedure: CT cervical spine wo con Ordering Provider: Italo Johnston MD PROCEDURE: CT CERVICAL SPINE WO CON INDICATIONS: Fall/pain TECHNIQUE: Noncontrast 3 mm thick sections acquired from the skull base to the T4 level. Sagittal and coronal reformats were then constructed. For radiation dose reduction, the following was used: automated exposure control, adjustment of mA and/or kV according to patient size. COMPARISON: None. FINDINGS: Image quality: Excellent. Bones: No fractures or dislocations. Visualized superior ribs are intact. Cervical spondylitic change. Multilevel disc height loss and uncovertebral joint hypertrophy with bony foraminal narrowing. Soft tissues: Prevertebral soft tissues are normal in thickness. No paravertebral hematomas. No apical pneumothoraces. IMPRESSION: No evidence acute cervical fracture or dislocation. Cervical spondylosis. Dictated by: Marco Antonio Medina M.D. on 08/23/2023 at 11:41 Approved by: Marco Antonio Medina M.D. on 08/23/2023 at 11:47 CT facial bone: Radiologist's Impression: [place] [address] CT Scan Report Addendum Patient: Orion Osman MR#: [id number] : 1950 Acct:[id number] Age/Sex: 72 / M Date of Service: 08/23/23 Loc: ED Accession Number: [id number] Procedure: CT facial bones wo con Ordering Provider: Italo Johnston MD ADDENDUMThis report includes an Addendum and supersedes previous reports for this exam. P the ROCEDURE: CT FACIAL BONES WO CON INDICATIONS: Fall/pain TECHNIQUE: Noncontrast 2.5 mm thick axial images acquired from the mandible through the frontal sinuses, with coronal and sagittal reformatting. For radiation dose reduction, the following was used: automated exposure control, adjustment of mA and/or kV according to patient size. COMPARISON: None. FINDINGS: Image quality: Excellent. Bones and teeth: Orbital olson are intact. Sinus olson show no fracture or deformity. Nasal bones and septum are intact. Visualized portions of the mandible demonstrate no fractures or subluxation. Zygomatic arches are intact. Pterygoid plates are intact. Visualized portions of the skull base and auditory canals are intact. Sinuses: Left maxillary sinus mucosal thickening with small air-fluid level. Paranasal sinuses are otherwise aerated, without fluid levels, mucosal thickening, or mucoceles. Mastoid air cells are aerated. Soft tissues: Right periorbital swelling. Intact right globe. No masses or fluid collections. No enlarged lymph nodes. No soft tissue lacerations or debris. Vascular: Visualized vascular structures appear normal in the absence of contrast. Bony vascular foramina and canals are intact. IMPRESSION: 1. No acute displaced facial bone fracture or mandibular fracture noted. 2. Right periorbital swelling. Right globe intact. 3. Mild acute on chronic left maxillary sinusitis. Dictated by: Marco Antonio Medina M.D. on 08/23/2023 at 11:39 Approved by: Marco Antonio Medina M.D. on 08/23/2023 at 11:41 ADDENDUM: COMPARISON:[facility], CT, CT HEAD/BRAIN WO CON, 08/23/2023, 15:56. There is a nondisplaced fracture involving the left mastoids, at their posterior superior aspect. This is identified on the coronal images. There is trace associated pneumocephalus. Comment: Findings were discussed with Dr. Johnston on 08/23/2023 at 1634 hours. Of note, the patient is still present in the emergency department, as there is a small subarachnoid hemorrhage noted on the patient's CT head. Dictated by: Marco Antonio Medina M.D. on 08/23/2023 at 16:33 Approved by: Marco Antonio Medina M.D. on 08/23/2023 at 16:36 Addendum Dictated By: Marco Antonio Medina MD Addendum Signed By: Addendum Cosigned By: DD/ /07/1636 TD/TT: 08/23/2307/07/1636 P the ROCEDURE: CT FACIAL BONES WO CON INDICATIONS: Fall/pain TECHNIQUE: Noncontrast 2.5 mm thick axial images acquired from the mandible through the frontal sinuses, with coronal and sagittal reformatting. For radiation dose reduction, the following was used: automated exposure control, adjustment of mA and/or kV according to patient size. COMPARISON: None. FINDINGS: Image quality: Excellent. Bones and teeth: Orbital olson are intact. Sinus olson show no fracture or deformity. Nasal bones and septum are intact. Visualized portions of the mandible demonstrate no fractures or subluxation. Zygomatic arches are intact. Pterygoid plates are intact. Visualized portions of the skull base and auditory canals are intact. Sinuses: Left maxillary sinus mucosal thickening with small air-fluid level. Paranasal sinuses are otherwise aerated, without fluid levels, mucosal thickening, or mucoceles. Mastoid air cells are aerated. Soft tissues: Right periorbital swelling. Intact right globe. No masses or fluid collections. No enlarged lymph nodes. No soft tissue lacerations or debris. Vascular: Visualized vascular structures appear normal in the absence of contrast. Bony vascular foramina and canals are intact. IMPRESSION: 1. No acute displaced facial bone fracture or mandibular fracture noted. 2. Right periorbital swelling. Right globe intact. 3. Mild acute on chronic left maxillary sinusitis. Dictated by: Marco Antonio Medina M.D. on 08/23/2023 at 11:39 Approved by: Marco Antonio Medina M.D. on 08/23/2023 at 11:[address] head: Radiologist's Impression: [place] [address] CT Scan Report Signed Patient: Orion Osman MR#: [id number] : 1950 Acct:[id number] Age/Sex: 72 / M Date of Service: 08/23/23 Loc: ED Accession Number: [id number] Procedure: CT head/brain wo con Ordering Provider: Italo Johnston MD PROCEDURE: CT HEAD/BRAIN WO CON INDICATIONS: Intra cranial bleed TECHNIQUE: Noncontrast 4.5 mm thick angled axial sections acquired from the foramen magnum to the vertex, with coronal and sagittal reformats. For radiation dose reduction, the following was used: automated exposure control, adjustment of mA and/or kV according to patient size. COMPARISON: [facility], CT, CT HEAD/BRAIN WO CON, 08/23/2023, 11:08. FINDINGS: Image quality: Excellent. CSF spaces: Basal cisterns are patent. No extra-axial fluid collections. The ventricles are symmetric in size and shape. Brain: Scattered foci of subarachnoid hemorrhage along the bilateral frontal lobes anteriorly and superiorly and left temporal and parietal lobes are similar in appearance compared to prior. There is cerebral volume loss for age, with resultant ventricular and sulcal prominence. There are periventricular and deep white matter chronic small vessel ischemic changes. There is intracranial internal carotid artery atherosclerosis. Skull and face: Calvarium and visualized facial bones appear intact, without suspicious lesions. Sinuses: Small air-fluid level within the left maxillary sinus. Partial opacification the left mastoid air cells is redemonstrated. Fracture is better evaluated on prior dedicated CT face.. IMPRESSION: 1. Redemonstration of scattered subarachnoid hemorrhage which is overall similar in appearance compared to prior. 2. No new intracranial hemorrhage or new acute intracranial abnormalities. 3. Left mastoid air cell fracture is better visualized on same day CT maxillofacial. Dictated by: Andres Almanzar M.D. on 08/23/2023 at 16:06 Approved by: Andres Almanzar M.D. on 08/23/2023 at 16:13 CTA - brain/neck: Radiologist's Impression: [place] [address] CT Scan Report Signed Patient: Orion Osman MR#: [id number] : 1950 Acct:[id number] Age/Sex: 72 / M Date of Service: 08/23/23 Loc: ED Accession Number: [id number] Procedure: CT angio head and neck Ordering Provider: Italo Johnston MD PROCEDURE: CT ANGIO HEAD AND NECK INDICATIONS: Syncope/altered mental status TECHNIQUE: After the administration of intravenous contrast, 1 mm thick sections acquired from the aortic arch through the [place] of [place]. 3-dimensional fsvztsh-yfyvwyjhh-lakjxbmkez (MIP) and/or volume rendering reformats were acquired of the central intracranial vasculature and neck separately. For radiation dose reduction, the following was used: automated exposure control, adjustment of mA and/or kV according to patient size. COMPARISON: None. FINDINGS: Image quality: Diagnostic. BRAIN: Please refer to separately dictated CT of the head. HEAD CT ANGIOGRAPHY: Anterior circulation: Intracranial internal carotid arteries are normal in size and flow. Mild atherosclerotic vascular calcifications. The flow within the paired anterior cerebral arteries is normal and symmetric. The flow within the middle cerebral arteries is normal and symmetric. The anterior communicating artery is seen. No aneurysms are seen. Posterior circulation: Visualized portions of the vertebral arteries demonstrate normal caliber, and join to form a normal appearing basilar artery. origin of the right [employer]OS[employer]OR. Flow within the posterior cerebral arteries is normal and symmetric. No aneurysms are seen. NECK CT ANGIOGRAPHY: Carotid system: The great vessels demonstrate a conventional anatomy as they arise from the aortic arch. Mild atherosclerotic vascular calcifications. The origins of the common carotid arteries appear patent. The common carotid arteries demonstrate normal caliber and courses. The bifurcation regions are both widely patent. The internal carotid arteries demonstrate normal calibers and courses. Posterior circulation: The origins of the vertebral arteries both appear widely patent. The more superior extracranial portions of both vertebral arteries also demonstrate normal courses and calibers. They join to form a normal appearing basilar artery. Soft tissues: Visualized neck soft tissues demonstrate no suspicious abnormalities. Bilateral lens replacements. Bones: No suspicious bony lesions. Visualized cervical spine appears normally aligned. Degenerative changes of the spine. Mucosal thickening of the left maxillary sinus. Nondisplaced fracture for the left mastoid air cells which spares the otic capsule. Partial opacification of left mastoid air cells. The fracture extends along the superior aspect of the mastoid air cells with trace adjacent pneumocephalus. IMPRESSION: 1. The arteries of the head and neck are patent and normal in caliber with mild atherosclerotic vascular calcifications. No large vessel occlusion, hemodynamically significant stenosis, aneurysm or AVM. 2. Nondisplaced fracture through the left mastoid air cells which spares the otic capsule. There is partial opacification of left mastoid air cells. The fracture extends along the superior aspect of the mastoid air cells with trace adjacent pneumocephalus. 3. Please refer to separately dictated CT of the head with regards to intracranial findings. Any quantitative measurements of stenosis were performed using NASCET criteria. Dictated by: Andres Almanzar M.D. on 08/23/2023 at 11:36 Approved by: Andres Almanzar M.D. on 08/23/2023 at 11:45 CT chest abdomen pelvis: Radiologist's Impression: [place] [address] CT Scan Report Signed Patient: Orion Osman MR#: [id number] : 1950 Acct:[id number] Age/Sex: 72 / M Date of Service: 08/23/23 Loc: ED Accession Number: [id number] Procedure: CT angio chest abdomen pelvis Ordering Provider: Italo Johnston MD PROCEDURE: CT ANGIO CHEST ABDOMEN PELVIS INDICATIONS: Syncope TECHNIQUE: Precontrast 5 mm thick sections acquired from the lung apices to the iliac crests. After the administration of intravenous contrast, 2.5 mm thick sections again acquired from the lung apices to the iliac crests. Maximum intensity projection (MIP) oblique sagittal and coronal reformats were then acquired. For radiation dose reduction, the following was used: automated exposure control. COMPARISON: None. FINDINGS: Image quality: Excellent. AORTA: No areas of hemodynamically significant stenosis, vascular occlusion, dissection or aneurysmal dilation. Mild scattered atherosclerotic calcifications are present. CHEST: Lungs and pleura: Patchy opacity is present within the right base. No pleural effusions or pneumothorax. Central and peripheral airways are patent and normal in caliber. Mediastinum: Heart size is normal. No pericardial effusion. No mediastinal or hilar adenopathy by size criteria. Central pulmonary arteries are normal in size. Esophagus is normal in caliber. Mild hiatal hernia. Bones and chest wall: No axillary adenopathy by size criteria. Thyroid gland is unremarkable. No suspicious bony lesions. No vertebral body compression fractures. ABDOMEN: Vasculature: Celiac trunk and mesenteric arteries are patent. Renal arteries are also patent. Solid organs: Liver is normal in size and enhancement. Prominent steatosis is present. Gallbladder is unremarkable . Biliary system is non dilated. Pancreas enhances normally. Spleen is normal in size and enhancement. No adrenal nodules. Both kidneys are normal in size and enhancement, without hydronephrosis. 3 mm nonobstructing right as well as left renal calcifications. Peritoneum and bowel: No free fluid or air. Bowel loops are normal in caliber and wall thickness. Colonic diverticula are present without associated inflammatory change. Nodes and vessels: No retroperitoneal or mesenteric adenopathy by size criteria. Inferior vena cava is normal in morphology. Miscellaneous: No ventral hernias. PELVIS: Genitourinary: Bladder wall thickness is normal. Miscellaneous: No inguinal hernias or adenopathy. No ventral hernias. Bones: No suspicious bony lesions. No vertebral body compression fractures. IMPRESSION: 3 mm nonobstructing bilateral renal calculi. Diverticulosis. Patchy opacity within the right base. This could be reflective of a small focus of infection inflammation versus developing scarring/atelectasis. Three-month interval follow-up is recommended to document resolution or document stability. Dictated by: Deborah Briggs M.D. on 08/23/2023 at 17:35 Approved by: Deborah Briggs M.D. on 08/23/2023 at 17:39 SWEETIE Narrative Medical decision making narrative: Patient here with his . Had unwitnessed syncope episode around 8:00 a.m. this morning. Patient did return home his usual time when he went out for a walk with the dog to get the mail. Patient does not recall any pre syncope events or symptoms. No headache chest pain dizziness abdominal pain back pain. No recent illness. No nausea vomiting diarrhea. No black or bloody stools. No history of heart attack strokes or diabetes. No history of arrhythmia. No history of seizures. Patient does recall waking his way back home. Next thing he remembers he was on the ground and picking up the mail from the ground. When he arrived home noticed that he was very diaphoretic. He was confused for a while. At this time he is at baseline. This is not happened to him before. No history of irregular heartbeats or heart valve disease or carotid stenosis. No history of blood clots in legs or lungs before. No history of stroke. He complains of pain in the back of his head where he has a small bruise. Complains of chin pain where on exam skin exam is unremarkable. After history and exam CBC CMP troponin magnesium EKG chest x-ray CT head CT angiogram head and neck D-dimer normal saline [facility] CC: Syncope Complicating co-morbidities: None Data collected from: Patient and Medical records reviewed: No recent visit for this complaint Differential considered: Includes but not limited to stroke heart attack pulmonary embolism and dissection arrhythmia hypoglycemia anemia Exam documented above, pertinent findings include: Bruising to the scalp Lab Test results independently reviewed as above. Pertinent findings: WBC 6.0 hemoglobin 15.5 INR 1.0 sodium 137 potassium 4.4 bicarb 30 BUN 15 creatinine 1.06 GFR greater than 60 glucose 130 total bilirubin 2.8 AST 35 ALT 43 Troponin less than 0.012 lipase 358 Magnesium 1.9 Independently reviewed EKG sinus bradycardia rate [address] elevation or depression Imaging studies independently reviewed: Chest x-ray no acute finding CT head subarachnoid bleed seen CT cervical spine no acute findings CT facial bone left mastoid fracture seen CT angiogram head and neck no acute vascular finding, left mastoid fracture seen CT chest abdomen pelvis no acute findings Repeat CT head no acute changes Consultations: 12:23 p.m.. Spoke with [facility] neurosurgery Dr. Carrera, he has reviewed imaging. No indication to transfer patient. Repeat CT scan in 4 hours and if no changes, patient can be discharged home. No follow-up indicated with neurosurgical services. 4:30 p.m.. I spoke with Dr. Medina, radiologist. There is a left mastoid cell fracture. 6:51 p.m.. I did speak with [facility] neurosurgery Dr. Fierro, he feels that this is a traumatic subarachnoid bleed. Syncope does needed pursued workup. However mastoid fracture is nonsurgical and can be observed. Patient has no hearing deficits. No facial nerve deficits. Has no bleeding or CSF in the canal. The mastoid fracture is nonsurgical. He feels ENT would not climate change analyst either. Treatments: Tylenol normal saline Re-evaluations: Spoke with patient and results of CT scan imaging. We will need repeat imaging in 4 hours for any changes as requested by neurosurgery team. If unchanged would be discharged home 4:50 p.m.. I updated patient and spoke with patient's children and , children by phone, mastoid fracture seen. We will call [facility] again for consult. Given new results, CT chest abdomen pelvis will be done Discussion: Diagnosis: Subarachnoid bleed mastoid fracture syncope 6:00 p.m.. Tonyick: Sign out to Dr Li, awaiting callback from [facility] given mastoid findings, patient may need syncopal workup as well. <Ara Li MD - Last Filed: 08/23/23 19:37> Lab Data Labs: Lab Results 08/23/23 08/23/23 08/23/23 Range/Units 10:20 11:07 12:15 WBC 6.0 (4.5-11.0) X10^3/uL RBC 5.03 (4.5-5.9) X10^6/uL Hgb 15.5 (13.5-17.5) g/dL Hct 45.1 (41-53) % MCV 89.7 (80-100) fL MCH 30.7 (26-34) PG MCHC 34.2 (30-36) % RDW 13.3 (11.6-14.8) % Plt Count 184 (150-400) X10^3/uL Neut % (Auto) 77.1 H (50-75) % Lymph % (Auto) 14.8 L (25-40) % [place] % (Auto) 5.4 (3-14) % Eos % (Auto) 2.1 (2-4) % Baso % (Auto) 0.6 (0-2) % Neut # (Auto) 4600 (7930-7996) /uL Lymph # (Auto) 900 L (6236-3141) /uL [place] # (Auto) 300 (0-900) /uL Eos # (Auto) 100 (0-450) /uL Baso # (Auto) 0 (0-100) /uL PT 11.4 (10.1-12.7) SECONDS INR 1.0 (0.9-1.3) APTT 33 (26-36) SECONDS D-Dimer 2185 H (<500) ng/ml Sodium 137 (137-145) mmol/L Potassium 4.4 (3.4-5.1) mmol/L Chloride 101 (98-107) mmol/L Carbon Dioxide 30 (22-32) mmol/L BUN 15 (9-20) mg/dL Creatinine 1.06 (0.66-1.25) mg/dL Estimated GFR > 60 (>60) mL/min BUN/Creatinine Ratio 14.2 (6-22) Glucose 130 H (80-110) mg/dL Calcium 9.4 (8.4-10.2) mg/dL Magnesium 1.9 (1.6-2.3) mg/dL Total Bilirubin 2.8 H (0.2-1.3) mg/dL AST 35 (17-59) IU/L ALT 43 (<50) IU/L Alkaline Phosphatase 75 (38-126) U/L Total Creatine Kinase 136 120 (55-170) U/L Troponin I < 0.012 < 0.012 (0.01-0.034) ng/mL Total Protein 7.5 (6.3-8.2) g/dL Albumin 4.3 (3.5-5.0) g/dL Globulin 3.2 (1.7-4.1) g/dL Albumin/Globulin Ratio 1.3 (1.0-2.8) Lipase 358 H (23-300) U/L MDM Narrative Medical decision making narrative: Patient here with his . Had unwitnessed syncope episode around 8:00 a.m. this morning. Patient did return home his usual time when he went out for a walk with the dog to get the mail. Patient does not recall any pre syncope events or symptoms. No headache chest pain dizziness abdominal pain back pain. No recent illness. No nausea vomiting diarrhea. No black or bloody stools. No history of heart attack strokes or diabetes. No history of arrhythmia. No history of seizures. Patient does recall waking his way back home. Next thing he remembers he was on the ground and picking up the mail from the ground. When he arrived home noticed that he was very diaphoretic. He was confused for a while. At this time he is at baseline. This is not happened to him before. No history of irregular heartbeats or heart valve disease or carotid stenosis. No history of blood clots in legs or lungs before. No history of stroke. He complains of pain in the back of his head where he has a small bruise. Complains of chin pain where on exam skin exam is unremarkable. After history and exam CBC CMP troponin magnesium EKG chest x-ray CT head CT angiogram head and neck D-dimer normal saline MDM CC: Syncope Complicating co-morbidities: None Data collected from: Patient and Medical records reviewed: No recent visit for this complaint Differential considered: Includes but not limited to stroke heart attack pulmonary embolism and dissection arrhythmia hypoglycemia anemia Exam documented above, pertinent findings include: Bruising to the scalp Lab Test results independently reviewed as above. Pertinent findings: WBC 6.0 hemoglobin 15.5 INR 1.0 sodium 137 potassium 4.4 bicarb 30 BUN 15 creatinine 1.06 GFR greater than 60 glucose 130 total bilirubin 2.8 AST 35 ALT 43 Troponin less than 0.012 lipase 358 Magnesium 1.9 Independently reviewed EKG sinus bradycardia rate [address] elevation or depression Imaging studies independently reviewed: Chest x-ray no acute finding CT head subarachnoid bleed seen CT cervical spine no acute findings CT facial bone left mastoid fracture seen CT angiogram head and neck no acute vascular finding, left mastoid fracture seen CT chest abdomen pelvis no acute findings Repeat CT head no acute changes Consultations: 12:23 p.m.. Spoke with [facility] neurosurgery Dr. Carrera, he has reviewed imaging. No indication to transfer patient. Repeat CT scan in 4 hours and if no changes, patient can be discharged home. No follow-up indicated with neurosurgical services. 4:30 p.m.. I spoke with Dr. Medina, radiologist. There is a left mastoid cell fracture. 6:51 p.m.. I did speak with [facility] neurosurgery Dr. Fierro, he feels that this is a traumatic subarachnoid bleed. Syncope does needed pursued workup. However mastoid fracture is nonsurgical and can be observed. Patient has no hearing deficits. No facial nerve deficits. Has no bleeding or CSF in the canal. The mastoid fracture is nonsurgical. He feels ENT would not climate change analyst either. Treatments: Tylenol normal saline Re-evaluations: Spoke with patient and results of CT scan imaging. We will need repeat imaging in 4 hours for any changes as requested by neurosurgery team. If unchanged would be discharged home 4:50 p.m.. I updated patient and spoke with patient's children and , children by phone, mastoid fracture seen. We will call [facility] again for consult. Given new results, CT chest abdomen pelvis will be done 6:00 p.m.. Vickie: Sign out to Dr Li, awaiting callback from [facility] source [facility] given mastoid findings, patient may need syncopal workup as well. Discussion: 72-year-old gentleman who had likely a syncopal episode this morning uncertain etiology woke up on the ground and was found to have a subarachnoid hemorrhage as well as a mastoid fracture. [facility] was contacted and neurosurgeon reviewed the films. Recommendation was to repeat study 4 hours later. This was done as well as a CT angiogram of the head and neck that did not reveal any additional bleeding sources. With the 2nd review by neurosurgeon at [facility], the feeling was the subarachnoid bleed was stable and no additional imaging per se for that was required. The mastoid fracture does not need any immediate intervention but may need ENT follow-up if he continues to have your fullness or decreased hearing. The question of syncopal episode still remains. Initially it was posited that he had a spontaneous subarachnoid bleed causing the syncope. With the 2nd CT scan the neurosurgeon felt that the subarachnoid bleed was likely secondary to trauma rather than the primary reason for syncope. Cardiac workup including EKG and troponins have been unremarkable. He has been on telemetry during the day and has not had any cardiac rhythm issues. We will recommend hospitalization at this time for continued syncopal workup to see if he had a TIA or stroke not seen on the CT scan, echocardiogram may be helpful, continue telemetry over the course of the evening. There is no evidence of infection or electrolyte abnormalities. All of these findings reviewed with the patient and his with questions fully reviewed and answered. He understands the need for hospital admission. Discussed with Dr Chris Welch, hospitalist. Accepts admission. Discharge Plan Departure Patient Disposition: Admitted as Observation Clinical Impression: Syncope and collapse Subarachnoid hemorrhage following injury Qualifiers: Encounter type: initial encounter Loss of consciousness presence/duration: with LOC of 30 min or less Qualified Code(s): S06.6X1A - Traumatic subarachnoid hemorrhage with loss of consciousness of 30 minutes or less, initial encounter Closed fracture of mastoid bone Qualifiers: Encounter type: initial encounter Qualified Code(s): S02.19XA - Other fracture of base of skull, initial encounter for closed fracture Admit Date/Time: 08/23/23 19:36 Admit Provider: Chris Lemus
[2023-08-23 11:20] LABS: D Dimer 2185 ng/ml (<500)
--- NOTE | 2023-08-23 11:34 | PC.NURSE ---
1005 At this time, this EDRN spoke with Dr. Johnston regarding the patient and requested verbal odrer for non-Contrast Head CT. Dr. Johnston reports he will assess patient first as he thinks he would also like to order a CT Angio of head.
[2023-08-23] MEDS: SODIUM CHLORIDE 0.9% 500 ML 1000 ML IV (12:12)
--- NOTE | 2023-08-23 12:23 | DI.CT.S_ITS ---
PROCEDURE: CT HEAD/BRAIN WO CON INDICATIONS: Intra cranial bleed TECHNIQUE: Noncontrast 4.5 mm thick angled axial sections acquired from the foramen magnum to the vertex, with coronal and sagittal reformats. For radiation dose reduction, the following was used: automated exposure control, adjustment of mA and/or kV according to patient size. COMPARISON: [facility], CT, CT HEAD/BRAIN WO CON, 08/23/2023, 11:08. FINDINGS: Image quality: Excellent. CSF spaces: Basal cisterns are patent. No extra-axial fluid collections. The ventricles are symmetric in size and shape. Brain: Scattered foci of subarachnoid hemorrhage along the bilateral frontal lobes anteriorly and superiorly and left temporal and parietal lobes are similar in appearance compared to prior. There is cerebral volume loss for age, with resultant ventricular and sulcal prominence. There are periventricular and deep white matter chronic small vessel ischemic changes. There is intracranial internal carotid artery atherosclerosis. Skull and face: Calvarium and visualized facial bones appear intact, without suspicious lesions. Sinuses: Small air-fluid level within the left maxillary sinus. Partial opacification the left mastoid air cells is redemonstrated. Fracture is better evaluated on prior dedicated CT face.. IMPRESSION: 1. Redemonstration of scattered subarachnoid hemorrhage which is overall similar in appearance compared to prior. 2. No new intracranial hemorrhage or new acute intracranial abnormalities. 3. Left mastoid air cell fracture is better visualized on same day CT maxillofacial. Dictated by: Andres Almanzar M.D. on 08/23/2023 at 16:06 Approved by: Andres Almanzar M.D. on 08/23/2023 at 16:13
[2023-08-23 12:49] LABS: Creatine Kinase 120 U/L (55-170)
[2023-08-23 13:01] LABS: Troponin I < 0.012 ng/mL (0.01-0.034)
--- NOTE | 2023-08-23 14:59 | PC.NURSE ---
Patient reports headache has increased from a 3/10 to a 5/10. Requests tylenol at this time. I spoke with Dr. Johnston and informed him of this. Verbal order for 975mg tylenol given at this time.
[2023-08-23] MEDS: ACETAMINOPHEN 325 MG TABLET 975 MG PO (15:05)
--- NOTE | 2023-08-23 15:10 | PC.NURSE ---
Ambulates with steady gait.
--- NOTE | 2023-08-23 16:45 | DI.CT.S_ITS ---
PROCEDURE: CT ANGIO CHEST ABDOMEN PELVIS INDICATIONS: Syncope TECHNIQUE: Precontrast 5 mm thick sections acquired from the lung apices to the iliac crests. After the administration of intravenous contrast, 2.5 mm thick sections again acquired from the lung apices to the iliac crests. Maximum intensity projection (MIP) oblique sagittal and coronal reformats were then acquired. For radiation dose reduction, the following was used: automated exposure control. COMPARISON: None. FINDINGS: Image quality: Excellent. AORTA: No areas of hemodynamically significant stenosis, vascular occlusion, dissection or aneurysmal dilation. Mild scattered atherosclerotic calcifications are present. CHEST: Lungs and pleura: Patchy opacity is present within the right base. No pleural effusions or pneumothorax. Central and peripheral airways are patent and normal in caliber. Mediastinum: Heart size is normal. No pericardial effusion. No mediastinal or hilar adenopathy by size criteria. Central pulmonary arteries are normal in size. Esophagus is normal in caliber. Mild hiatal hernia. Bones and chest wall: No axillary adenopathy by size criteria. Thyroid gland is unremarkable. No suspicious bony lesions. No vertebral body compression fractures. ABDOMEN: Vasculature: Celiac trunk and mesenteric arteries are patent. Renal arteries are also patent. Solid organs: Liver is normal in size and enhancement. Prominent steatosis is present. Gallbladder is unremarkable . Biliary system is non dilated. Pancreas enhances normally. Spleen is normal in size and enhancement. No adrenal nodules. Both kidneys are normal in size and enhancement, without hydronephrosis. 3 mm nonobstructing right as well as left renal calcifications. Peritoneum and bowel: No free fluid or air. Bowel loops are normal in caliber and wall thickness. Colonic diverticula are present without associated inflammatory change. Nodes and vessels: No retroperitoneal or mesenteric adenopathy by size criteria. Inferior vena cava is normal in morphology. Miscellaneous: No ventral hernias. PELVIS: Genitourinary: Bladder wall thickness is normal. Miscellaneous: No inguinal hernias or adenopathy. No ventral hernias. Bones: No suspicious bony lesions. No vertebral body compression fractures. IMPRESSION: 3 mm nonobstructing bilateral renal calculi. Diverticulosis. Patchy opacity within the right base. This could be reflective of a small focus of infection inflammation versus developing scarring/atelectasis. Three-month interval follow-up is recommended to document resolution or document stability. Dictated by: Deborah Briggs M.D. on 08/23/2023 at 17:35 Approved by: Deborah Briggs M.D. on 08/23/2023 at 17:39
[2023-08-23] MEDS: ONDANSETRON 4 MG/2 ML INJ IV (17:16)
--- NOTE | 2023-08-23 17:19 | PC.NURSE ---
1700 Ambulates to bathroom with steady gait. Reports some nausea, requests either food or nausea meds. Must remain NPO per Dr. Johnston, Verbal order given to give the patient 4mg IV Zofran.
--- NOTE | 2023-08-23 19:35 | PC.NURSE ---
At this time, I spoke with Dr. Li who reports he can eat. Patient will be admitted for obs and given some IV dilaudid for headache. I gave the patient a PB & J sandwich.
[2023-08-23] MEDS: HYDROMORPHONE 0.5 MG INJ IV (19:45)
--- NOTE | 2023-08-23 19:46 | DI.ECHO.S_ITS ---
[facility] +---------+ : : [address] : [address] : : : : [id number] : : : : Phone: [phone]+ Echocardiogram Report + + :Name: ZULMA HIDALGO Study Date: 08/24/2023 Height: 71 in : :[facility] ReadingLocation: Weight: 200 lb : : Gender: Male BSA: 2.1 m2 : :: 1950 Age: 72 yrs BP: 151/84 mmHg: :Reason For Study: Syncope : :Ordering Physician: Chris Lemus : :Brian MATT Performed By: Jojo Eaton : :Referring: Chris Lemus MD : + + Interpretation Summary Sinus bradycardia with heart rate 53 bpm. Normal LV size and mildly increased wall thickness. Normal wall motion and LV systolic function. EF is 60-65%. Normal chamber sizes. No significant valvular abnormalities. No prior study available for comparison. Procedure: A two-dimensional transthoracic echocardiogram with color flow and Doppler was performed. The study quality was technically adequate. There is no prior echocardiogram noted for this patient. The patient was in sinus bradycardia with heart rates between 53-55 bpm during the exam. Left Ventricle: The left ventricle is normal in size. The ejection fraction is estimated to be 60-65%. Diastolic parameters suggest a relaxation abnormality of the left ventricle, consistent with probable normal filling pressures. Right Ventricle: The right ventricle is normal in size and function. Atria: The left atrial size is normal. Right atrial size is normal. There is no Doppler evidence for an interatrial shunt. Mitral Valve: The mitral valve is normal. There is no mitral valve stenosis. There is trace mitral regurgitation. Aortic Valve: The aortic valve is trileaflet. The aortic valve opens well. There is no aortic valve stenosis. No aortic regurgitation is present. Tricuspid Valve: The tricuspid valve is normal. There is no tricuspid stenosis. There is trace tricuspid regurgitation. Pulmonary artery pressures cannot be estimated because of the lack of a measurable TR jet velocity. Pulmonic Valve: The pulmonic valve leaflets are thin and pliable; valve motion is normal. There is no pulmonic valvular stenosis. There is trace pulmonic regurgitation. Great Vessels: The aortic root is normal size. The ascending aorta is at the upper limits of normal in size. The pulmonary artery is normal size. The IVC is of normal diameter and collapses greater than 50% with a sniff. This suggests a low right atrial pressure of 3 mm Hg. Pericardium/ Pleura There is no pericardial effusion. There is no pleural effusion. MMode/2D Measurements & Calculations LVIDd: 5.1 cm LVOT diam: 2.0 cm LVIDs: 3.2 cm Ao root diam: 3.5 cm FS: 37.6 % asc Aorta Diam: 3.7 cm IVSd: 1.2 cm LVPWd: 1.1 cm LV amado. diameter/BSA (cm/m^2): 2.4 LV sys. diameter/BSA (cm/m^2): 1.5 LA A2 area: 14.5 cm2 RA long axis: 5.3 cm LA A4 area: 17.5 cm2 RA area: 17.1 cm2 LA length (vol): 5.0 cm RA vol: 46.7 ml LA vol: 42.5 ml RA : 22.1 ml/m2 LA vol index: 20.2 ml/m2 TAPSE: 2.9 cm Doppler Measurements & Calculations Ao V2 max: 137.1 cm/sec LVOT Max Kenny: 105.3 cm/sec Ao V2 mean: 102.1 cm/sec LV V1 max P.4 mmHg Ao max P.5 mmHg LV V1 VTI: 20.5 cm Ao mean P.5 mmHg ANDREI(I,D): 2.0 cm2 Ao V2 VTI: 30.5 cm ANDREI(V,D): 2.3 cm2 sev ratio: 0.67 ANDREI indexed to BSA (cm^2/m^2): 0.95 MV E max kenny: 64.4 cm/sec PA V2 max: 104.9 cm/sec MV A max kenny: 66.7 cm/sec PA V2 mean: 65.5 cm/sec MV E/A: 0.97 PA mean P.0 mmHg Med Peak E' Kenny: 6.6 cm/sec PA pr(Accel): 44.7 mmHg E/E' med: 9.8 Lat Peak E' Kenny: 6.8 cm/sec E/E' lat: 9.5 E/e' average: 9.6 MV dec time: 0.28 sec SV([facility]): 61.4 ml Electronically signed by: Zaida Lowe M.D. on Reading Physician:08/24/2023 05:20 PM
--- NOTE | 2023-08-23 19:46 | DI.MRI.S_ITS ---
PROCEDURE: MR HEAD/BRAIN WO CON INDICATIONS: syncope TECHNIQUE: Non-contrast axial T1 spin echo, axial T2 fast spin echo, sagittal and axial FLAIR, coronal T2 fast spin echo, axial gradient echo, axial diffusion and ADC through the brain. COMPARISON: [facility], CT, CT HEAD/BRAIN WO CON, 08/23/2023, 15:56. [facility], CT, CT FACIAL BONES WO CON, 08/23/2023, 11:08. [facility], CT, CT HEAD/BRAIN WO CON, 08/23/2023, 11:08. FINDINGS: Image quality: Excellent. CSF spaces: Ventricles appear symmetric in size and shape. Basal cisterns are patent. No extra-axial fluid collections. Brain: There is bilateral subarachnoid hemorrhage, which is not significantly changed compared to the CT examinations performed on the day before. No intracranial mass effects. There is cerebral volume loss for age. There are periventricular and deep white matter chronic small vessel ischemic changes. Brainstem appears normal. Diffusion-weighted images show no acute ischemic insults. No chronic ischemic insults. Normal intravascular flow voids are present. Skull and face: Calvarial bone marrow is normal in signal. Orbits are normal. Note is made of bilateral lens replacements. Sinuses: There is at least moderate left mastoid air cell fluid seen. There is moderate mucosal thickening within the left maxillary sinus. Minimal mucosal thickening can be seen elsewhere within the paranasal sinuses. IMPRESSION: Bilateral subarachnoid hemorrhage is again seen, which is similar to the prior recent CTs. No findings of acute or subacute infarction can be seen. Additional findings: Left maxillary sinus disease Left-sided mastoid air cell fluid Dictated by: Petros Dillon M.D. on 08/24/2023 at 10:38 Approved by: Petros Dillon M.D. on 08/24/2023 at 10:40
[2023-08-23 21:38] LABS: Influenza A - CEPHEID Flu A NEGATIVE (NEGATIVE); Influenza B - CEPHEID Flu B NEGATIVE (NEGATIVE); Respiratory Syncytial Virus Negative (Negative)
[2023-08-23 21:45] LABS: COVID-19 CEPHEID 4-PLEX PCR Negative (Negative)
[2023-08-23] MEDS: ACETAMINOPHEN 325 MG TABLET 650 MG PO (21:54)
[2023-08-23] MEDS: ONDANSETRON 4 MG ODT PO (21:55)
--- NOTE | 2023-08-23 23:13 | P.HP_ITS ---
History of Present Illness History of Present Illness Date Patient Seen: 08/23/23 Time Patient Seen: 23:13 Chief complaint: passed out hit head dizziness visible blood Narrative: The pt is a 72 yo who walks on a daily basis who had a syncopal event this morning after his walk while checking his mailbox. It was a sudden onset with no pre-syncopal symptoms or warnings. He has never had an event like this before, has not been ill recently, no fevers, chills, change in medications, no herb or supplements. He believes he was out only a second and woke up with a CARRANZA and pain in his jaw from hitting the mailbox with his neck. CT scan shows a mastoid fracture but no other abnormalites. [facility] Family History Father No problems noted. Mother No problems noted. Social History Smoking Status: Never smoker Meds Home Medications and Allergies Home Medications Medication Instructions Recorded Confirmed Type allopurinol 300 mg tablet 300 mg PO DAILY 01/02/19 08/23/23 History losartan 100 mg tablet 100 mg PO DAILY 01/02/19 08/23/23 History lamotrigine 150 mg tablet 150 mg PO QDAY #90 tabs 02/11/20 08/23/23 Rx (Lamictal) Allergies Allergy/AdvReac Type Severity Reaction Status Date / Time atorvastatin [ATORVASTATIN] Allergy Intermediate Verified 08/23/23 10:41 ciprofloxacin [From CIPRO] Allergy Intermediate Verified 08/23/23 10:41 erythromycin base Allergy Mild HEACACHE, Verified 08/23/23 10:41 [ERYTHROMYCIN BASE] SWELLING, FEEL TERRIBLE Exam Vital Signs (past 8 hours): - 08/23/23 15:30 08/23/23 15:30 08/23/23 16:00 Temperature Pulse Rate 58 L 65 Respiratory Rate 18 17 Blood Pressure 146/76 H Pulse Oximetry 97 99 Oxygen Delivery Method Room Air Oxygen Flow Rate 08/23/23 16:30 08/23/23 17:10 08/23/23 17:12 Temperature Pulse Rate 60 62 63 Respiratory Rate Blood Pressure Pulse Oximetry 97 99 96 Oxygen Delivery Method Room Air Oxygen Flow Rate 08/23/23 17:12 08/23/23 17:30 08/23/23 18:00 Temperature Pulse Rate 61 63 Respiratory Rate 18 18 Blood Pressure 157/70 H Pulse Oximetry 96 95 Oxygen Delivery Method Oxygen Flow Rate 08/23/23 18:30 08/23/23 19:00 08/23/23 19:30 Temperature Pulse Rate 60 57 L 62 Respiratory Rate 17 20 15 Blood Pressure 137/76 141/68 H Pulse Oximetry 96 94 96 Oxygen Delivery Method Oxygen Flow Rate 08/23/23 19:39 08/23/23 19:39 08/23/23 20:00 Temperature Pulse Rate 66 61 Respiratory Rate 22 14 Blood Pressure 141/68 H Pulse Oximetry 97 93 Oxygen Delivery Method Oxygen Flow Rate 08/23/23 20:30 08/23/23 21:00 08/23/23 22:01 Temperature 96.6 F L Pulse Rate 63 63 61 Respiratory Rate 15 15 18 Blood Pressure 139/76 144/67 H 162/71 H Pulse Oximetry 94 94 99 Oxygen Delivery Method Room Air Oxygen Flow Rate 0 08/23/23 22:02 Temperature Pulse Rate Respiratory Rate Blood Pressure Pulse Oximetry Oxygen Delivery Method Room Air Oxygen Flow Rate Oxygen Delivery Method Room Air Oxygen Flow Rate 0 Const General: cooperative, healthy appearing, comfortable and well developed Eyes Periorbital: periorbital findings abnormal (bruising around left eye) Resp Auscultation: clear to auscultation bilaterally Cardio Rate: regular rate Rhythm: regular rhythm GI Auscultation: normal bowel sounds Neuro Cognition: normal cognition Motor: muscle tone normal throughout Sensory Exam: no sensory deficits noted Objective Labs 08/23/23 10:20 08/23/23 10:20 Labs: Laboratory Results - last 24 hr 08/23/23 08/23/23 08/23/23 10:20 11:07 12:15 WBC 6.0 RBC 5.03 Hgb 15.5 Hct 45.1 MCV 89.7 MCH 30.7 MCHC 34.2 RDW 13.3 Plt Count 184 Neut % (Auto) 77.1 H Lymph % (Auto) 14.8 L [place] % (Auto) 5.4 Eos % (Auto) 2.1 Baso % (Auto) 0.6 Neut # (Auto) 4600 Lymph # (Auto) 900 L [place] # (Auto) 300 Eos # (Auto) 100 Baso # (Auto) 0 PT 11.4 INR 1.0 APTT 33 D-Dimer 2185 H Sodium 137 Potassium 4.4 Chloride 101 Carbon Dioxide 30 BUN 15 Creatinine 1.06 Estimated GFR > 60 BUN/Creatinine Ratio 14.2 Glucose 130 H Calcium 9.4 Magnesium 1.9 Total Bilirubin 2.8 H AST 35 ALT 43 Alkaline Phosphatase 75 Total Creatine Kinase 136 120 Troponin I < 0.012 < 0.012 Total Protein 7.5 Albumin 4.3 Globulin 3.2 Albumin/Globulin Ratio 1.3 Lipase 358 H SARS-CoV-2 (PCR) Influenza A (RT-PCR) Influenza B (RT-PCR) RSV (PCR) 08/23/23 20:53 WBC RBC Hgb Hct MCV MCH MCHC RDW Plt Count Neut % (Auto) Lymph % (Auto) [place] % (Auto) Eos % (Auto) Baso % (Auto) Neut # (Auto) Lymph # (Auto) [place] # (Auto) Eos # (Auto) Baso # (Auto) PT INR APTT D-Dimer Sodium Potassium Chloride Carbon Dioxide BUN Creatinine Estimated GFR BUN/Creatinine Ratio Glucose Calcium Magnesium Total Bilirubin AST ALT Alkaline Phosphatase Total Creatine Kinase Troponin I Total Protein Albumin Globulin Albumin/Globulin Ratio Lipase SARS-CoV-2 (PCR) Negative Influenza A (RT-PCR) Flu a negative Influenza B (RT-PCR) Flu b negative RSV (PCR) Negative Assessment & Plan Assessment and plan (1) Closed fracture of mastoid bone: Qualifiers: Encounter type: initial encounter Qualified Code(s): S02.19XA - Other fracture of base of skull, initial encounter for closed fracture Status: Acute (2) Subarachnoid hemorrhage following injury: Qualifiers: Encounter type: initial encounter Loss of consciousness presence/duration: with LOC of 30 min or less Qualified Code(s): S06.6X1A - Traumatic subarachnoid hemorrhage with loss of consciousness of 30 minutes or less, initial encounter Status: Acute (3) Syncope and collapse: Status: Acute Plan I discussed the pt's case with the ER provider and agree with admission. CT head reviewed and there is a mastoid fx but also a SAH which was reviewed by the neurosurgical team at [place] and they do not recommend any intervention other than a repeat CT head in 4 hours which was done and did not show worsen of the bleed. No antiplatelets or blood thinners though. CTA head and neck reviewed and is negative for blockages. Troponin is neg, EKG normal, will admit for monitoring on tele, checking echo in am, MRI head without contrast, repeating labs, d-dimer is negative but CT chest / abd is neg. for PE. checking for COVID / Influ also but pt is asymptomatic.
[2023-08-24 04:39] VITALS: BP 119/60; PULSE 59; RESP 17; TEMP 36.4; O2SAT 95
[2023-08-24 04:54] LABS: Add Manual Diff / Slide Review NO; Basophils Absolute Auto 100 /uL (0-100); Basophils Percent Auto 0.7 % (0-2); Eosinophils Absolute Auto 100 /uL (0-450); Eosinophils Percent Auto 1.3 % (2-4); Hematocrit 42.3 % (41-53); Hemoglobin 14.5 g/dL (13.5-17.5); Lymphocytes Absolute Auto 1200 /uL (1100-4500); Lymphocytes Percent Auto 15.9 % (25-40); Mean Corpuscular HGB Conc 34.3 % (30-36); Mean Corpuscular Hemoglobin 30.7 PG (26-34); Mean Corpuscular Volume 89.6 fL (80-100); Monocytes Absolute Auto 600 /uL (0-900); Monocytes Percent Auto 7.8 % (3-14); Neutrophils Absolute Auto 5700 /uL (1500-7000); Neutrophils Percent Auto 74.3 % (50-75); Platelet Count 178 X10^3/uL (150-400); Red Blood Cell Count 4.72 X10^6/uL (4.5-5.9); Red Cell Distribution Width 13.3 % (11.6-14.8); White Blood Cell Count 7.7 X10^3/uL (4.5-11.0)
[2023-08-24 05:03] LABS: Alanine Aminotransferase 34 IU/L (<50); Albumin Globulin Ratio 1.5 (1.0-2.8); Alkaline Phosphatase 68 U/L (38-126); Aspartate Aminotransferase 27 IU/L (17-59); Bilirubin Total 2.2 mg/dL (0.2-1.3); Blood Urea Nitrogen 16 mg/dL (9-20); Calcium 9.2 mg/dL (8.4-10.2); Carbon Dioxide 28 mmol/L (22-32); Chloride 100 mmol/L (98-107); Estimated Glomerular Filt Rate > 60 mL/min (>60); Globulin 2.7 g/dL (1.7-4.1); Glucose 131 mg/dL (80-110); HEMOLYSIS < 15 (0-50); Potassium 3.8 mmol/L (3.4-5.1); Sodium 136 mmol/L (137-145); Total Protein 6.7 g/dL (6.3-8.2)
[2023-08-24 08:00] VITALS: BP 135/87; PULSE 57; O2SAT 95
[2023-08-24] MEDS: ONDANSETRON 4 MG/2 ML INJ IV ×2 (08:23→13:57)
[2023-08-24] MEDS: ACETAMINOPHEN 325 MG TABLET 650 MG PO (08:23)
[2023-08-24 12:00] VITALS: BP 122/59; PULSE 57; O2SAT 98
[2023-08-24 13:15] VITALS: RESP 18; TEMP 37.5
[2023-08-24] MEDS: HYDROCODONE/ACET 5/325 TABLET 2 TAB PO (13:57)
--- NOTE | 2023-08-24 15:05 | P.DS_ITS ---
History of Present Illness History of Present Illness Date Patient Seen: 08/24/23 Time Patient Seen: 15:05 Chief complaint: passed out hit head dizziness visible blood Narrative: The pt is a 72 yo who walks on a daily basis who had a syncopal event this morning after his walk while checking his mailbox. It was a sudden onset with no pre-syncopal symptoms or warnings. He has never had an event like this before, has not been ill recently, no fevers, chills, change in medications, no herb or supplements. He believes he was out only a second and woke up with a CARRANZA and pain in his jaw from hitting the mailbox with his neck. CT scan shows a mastoid fracture but no other abnormalites. Discharge Providers Provider Date of admission: 08/23/23 19:36 Discharge Date: 08/24/23 Primary care physician: Elma Piper MD Discharge provider: Low Tejada DO Summary Hospital Course Discharge Diagnosis: (1) Closed fracture of mastoid bone: (2) Subarachnoid hemorrhage following injury: (3) Syncope and collapse: Hospital Course: This is a 72 year old male with PMH of HTN who presented after an episode of syncope where he struck his head. He was found to have a subarachnoid hemorrhage which was stable on repeat imaging. Neurosurgery was consulted and no further management was recommended. He also suffered a mastoid fracture. ENT recommended outpatient follow up only if swelling or decreased hearing continue as an outpatient. With regards to his syncope, he had no events on telemetry, EKG was unremarkable, as was echocardiogram. He does report some prior prodromal symptoms previously but denied them this time. I do suspect that a benign cause is more likely, but he does not recall the prodromal events as a result of his traumatic head injury and likely concussion. No medication changes were recommended at discharge, but he was given nausea and pain medications to help with symptoms after discharge. PCP follow up is recommended in the next 1-2 weeks to follow up from his hospitalization. I do recommend outpatient holter monitor for possible further evaluation for syncope, though I suspect arrythmia is less likely based on the above. Time Spent with Patient Time spent: Greater than 30 minutes Exam Vital Signs (past 8 hours): - 08/24/23 08:00 08/24/23 12:00 08/24/23 13:15 Temperature 99.5 F Pulse Rate 57 L 57 L Respiratory Rate 18 Blood Pressure 135/87 122/59 L Pulse Oximetry 95 98 Oxygen Flow Rate 0 0 Oxygen Delivery Method Room Air Oxygen Flow Rate 0 Const General: cooperative, healthy appearing, comfortable and well developed Eyes Periorbital: periorbital findings abnormal (bruising around R eye) Resp Auscultation: clear to auscultation bilaterally Cardio Rate: regular rate Rhythm: regular rhythm GI Auscultation: normal bowel sounds Neuro Cognition: normal cognition Motor: muscle tone normal throughout Sensory Exam: no sensory deficits noted Objective Labs 08/24/23 03:50 08/24/23 03:50 Labs: Laboratory Results - last 24 hr 08/23/23 08/24/23 20:53 03:50 WBC 7.7 RBC 4.72 Hgb 14.5 Hct 42.3 MCV 89.6 MCH 30.7 MCHC 34.3 RDW 13.3 Plt Count 178 Neut % (Auto) 74.3 Lymph % (Auto) 15.9 L [place] % (Auto) 7.8 Eos % (Auto) 1.3 L Baso % (Auto) 0.7 Neut # (Auto) 5700 Lymph # (Auto) 1200 [place] # (Auto) 600 Eos # (Auto) 100 Baso # (Auto) 100 Sodium 136 L Potassium 3.8 Chloride 100 Carbon Dioxide 28 BUN 16 Creatinine 0.94 Estimated GFR > 60 BUN/Creatinine Ratio 17.0 Glucose 131 H Calcium 9.2 Magnesium 2.0 Total Bilirubin 2.2 H AST 27 ALT 34 Alkaline Phosphatase 68 Total Protein 6.7 Albumin 4.0 Globulin 2.7 Albumin/Globulin Ratio 1.5 SARS-CoV-2 (PCR) Negative Influenza A (RT-PCR) Flu a negative Influenza B (RT-PCR) Flu b negative RSV (PCR) Negative [facility] Family History Father No problems noted. Mother No problems noted. Social History Smoking Status: Never smoker Discharge Plan Discharge Plan Patient Disposition: Home Provider Discharge Comment: You were admitted to the hospital with a small bleed in your head and a mastoid fracture after an episode of sycnope. The mastoid fracture does not need any immediate intervention but may need ENT follow-up if he continues to have your fullness or decreased hearing. Please try to follow up with your PCP for a checkup in the coming 1-2 weeks. I also recommend a holter monitor to see if there is an underlying arrythmia. You can take up to 4 g (4000 mg) of tylenol in a day, recommend splitting evenly throughout the day as discussed. Discharge orders & Medications Prescriptions: New oxycodone 5 mg tablet 5 mg PO Q6H PRN (Reason: pain) 7 Days Qty: 20 0RF ondansetron HCl 4 mg tablet 4 mg PO Q8H PRN (Reason: nausea and vomiting) 30 Days Qty: 30 0RF Continued allopurinol 300 mg tablet 300 mg PO DAILY losartan 100 mg tablet 100 mg PO DAILY lamotrigine [Lamictal] 150 mg tablet 150 mg PO QDAY Qty: 90 3RF Rx Instructions: Take 1 tab daily Follow up/Referrals: Elma Piper MD [Primary Care Provider] - Diet/Activity/Treatments Diet: Diet as Tolerated Activity: As tolerated, no restrictions Visit Report/Discharge Packet Instructions: DI for Prescription Opioid Use Stand Alone Forms: Congestive Heart Failure, Patient Portal/API, Stroke Signs & Symptoms Discharge Data Primary Care Provider: Elma Piper Attending Provider: Chris Lemus Admit Date/Time: 08/23/23 19:36
== END 2023-08-24 16:19 | disposition home or self-care (01) ==
LOC: ED 19:35 → AC 19:36
PROVIDERS: Emergency Medicine; Admitting Provider Internal Medicine; Emergency Provider Emergency Medicine; Family Provider Internal Medicine; PCP Internal Medicine; Visit Provider Internal Medicine
DX: S02.19XA Other fracture of base of skull, initial encounter for closed fracture (principal); S06.6X1A Traumatic subarachnoid hemorrhage with loss of consciousness of 30 minutes or less, initial encounter; R55 Syncope and collapse; Y93.K1 Activity, walking an animal
CPT/HCPCS: 0241U; 36415; 70450; 70486; 70496; 70498; 70551; 71045; 71275; 72125; 74174; 80053; 82550; 83690; 83735; 84484; 85025; 85379; 85610; 85730; 93005; 93306; 96361; 96374; 96375; 96376; 99285; G0378; J1170; J2405; Q9967

== ENCOUNTER → 2023-09-05 14:05 | Outpatient (CLI) | payer MEDICARE, OTHER, SELFPAY ==
[2023-08-23 22:02] VITALS: BMI 27.8
--- NOTE | 2023-09-05 | DI.RAD.S_ITS ---
PROCEDURE: XR LUMBOSACRAL SPINE 2-3 VIEWS COMPARISON: None. INDICATIONS: BACK PAIN FINDINGS: Three views of the lumbar spine were obtained. There are multilevel degenerative changes with disc space narrowing at L5-S1. L5-S1 has endplate degenerative changes and anterior and posterior osteophytes. There is facet arthrosis in the lower lumbar spine. The sacroiliac joints are normal. IMPRESSION: 1. Multilevel degenerative changes and facet arthrosis. 2. Degenerative disc disease most prominent at L5-S1. Dictated by: Drake Locke M.D. on 09/05/2023 at 16:09 Approved by: Drake Locke M.D. on 09/05/2023 at 16:12
== END ==
PROVIDERS: Family Provider Internal Medicine; PCP Internal Medicine; Referring Provider Internal Medicine; Visit Provider Internal Medicine
DX: M54.40 Lumbago with sciatica, unspecified side (principal); M51.37 Other intervertebral disc degeneration, lumbosacral region; M47.816 Spondylosis without myelopathy or radiculopathy, lumbar region
CPT/HCPCS: 72100

== ENCOUNTER 2023-11-06 13:00 | Outpatient (RCR) | payer MEDICARE, OTHER, SELFPAY ==
[2023-08-23 22:02] VITALS: BMI 27.8
--- NOTE | 2023-10-29 16:00 | PT.OIE ---
Current Diagnoses Lumbago with sciatica, unspecified side (10/29/23) Visit Care Team Role Provider Type Elma Piper MD Attending Provider Physician Family Provider Primary Care Provider Referring Provider Specialty: Internal Medicine Address: [place], [address] Email: Physical Therapy Initial Evaluation PT-OP-A Visit Information Start: 10/29/23 13:02 Freq: Status: Active Protocol: Document 10/29/23 13:02 NM (Rec: 10/29/23 13:53 NM [id number]) Out-Patient Physical Therapy Visit Information Visit Information Visit Type Initial Evaluation Visit Note KX after 19 visits Visit Start Time 13:00 Visit Stop Time 13:45 Total Visit Minutes 45 Visit Number 1 Evaluation Information Evaluation Date 10/29/23 Precautions Precautions Hx lumbar laminectomy PT-OP-B Current Condition Start: 10/29/23 13:02 Freq: Status: Active Protocol: Document 10/29/23 13:02 NM (Rec: 10/29/23 13:53 NM [id number]) Current Condition History of Current Condition Onset Date July 2023 Current Complaints crooked stance, feels unstable in spine History of Current Condition Pt presents to clinic to be evaluated for low back pain and sciatic symptoms. Currently, pt reports that he does not have any low back pain or sciatic symptoms. He does report feelings of spinal instability and having a crooked stance. Currently, no problems with lifting, sitting, walking. His low back pain is episodic with less pain per episode, usually R sided. However, in July 2023, he had a black out episode resulting in ED visit . When he was in the hospital bed, he experienced muscle cramping in his lumbar spine that was better with walking, worse with laying down. Pt has had PT for low back pain/ sciatica before; however, he reports that these was different pain. At the time, he had pain down back of legs, butt and ending at the back of legs to his knees. Original back pain since 18 y.o. Hx of laminectomy, degenerative disc disease, R sided. No change balance or sensation. Prior Treatments and Tests Prior PT for laminectomy and low back pain. Still performs exercises: pelvic alignment exercises, HS stretch, LTR, knee ext, figure 4, partial crunch, push up, cat stretch modified with neck rotation. Current Functional Impairments (Reported) Functional Limitations- ADL's Driving/Sit in car before low back pain and stiffness Functional Limitations- Other Pain with sleeping on stomach (only side or back sleep), rolling from front to back. PT-OP-C Subjective Start: 10/29/23 13:02 Freq: Status: Active Protocol: Document 10/29/23 13:02 NM (Rec: 10/29/23 13:53 NM [id number]) OP-PT Subjective Patient Comments Patient Comments see hx above for pt report Patient Questionnaires Oswestry Low Back Index Oswestry Score 3/50 OP-PT Pain Assessment Pain Assessment Grid Paper Pain Assessment Grid Completed Yes Location Lumbar spine Pain Location Details B midline L4-S1, B SIJ Intensity 0 Description Aching Description- Other worse 2/10 Frequency Occasional Pain Duration equally, bilateral Radiating Location none Pain Aggravating Factors ADL's,Activity,Exercise, Standing,Sitting,Walking, Lifting Other Pain Aggravating Factors only occurs when he has pain Other Pain Alleviating Factors TENS, sitting with legs folded underneath Home Pain Medication Use Pain Medications Used No: prn aleve Pain Behaviors Pain Behaviors Holding Area Comments Pain Comments Currently, pt is not having an episode of pain, so no pain reported PT-OP-E Functional Tests Start: 10/29/23 13:02 Freq: Status: Active Protocol: Document 10/29/23 13:02 NM (Rec: 10/29/23 16:51 NM [id number]) Functional Tests Five Times Sit to Stand Test Score 9.32 seconds Comments reports no pain with movements Other Forward Trunk Flexion Test Name of Test Fwd trunk flex reach to floor, measure finger tip from floor Score 10 Comment attempts to bend knees d/t stretch, no pain reported with trunk flexion PT-OP-F Manual Assessment Start: 10/29/23 13:02 Freq: Status: Active Protocol: Document 10/29/23 13:02 NM (Rec: 10/29/23 13:53 NM [id number]) Manual Assessments Soft Tissue Assessment Soft Tissue Mobility Assessment Tightness in B hamstrings with passive knee extension Joint Mobility Assessment Joint Mobility Assessment P-A springing of Lumbar spine does not reproduce pain; however, pt reports discomfort at L4-S1 spinous processes and B SIJ. Full hip PROM, does not reproduce pain. L innominate slightly more elevated and prominent anteriorly than R innominate. PT-OP-G Mobility & Gait Start: 10/29/23 13:02 Freq: Status: Active Protocol: Document 10/29/23 13:02 NM (Rec: 10/29/23 16:51 NM [id number]) OP Gait Assessment Gait Gait Assistance Required: Independent Distance (Feet) 200 Assistive Devices Assistive Device None Gait Deviations General Gait Pattern Lateral Trunk Lean Comments Gait Comments Demos lateral pelvic translation with gait, L>R. Slight R trunk lean, no trunk rotation. PT-OP-H Neuro Start: 10/29/23 13:02 Freq: Status: Active Protocol: Document 10/29/23 13:02 NM (Rec: 10/29/23 13:53 NM [id number]) Sensation Evaluation Gross Sensation Gross Sensation WNL Comments Summary Comments BLE dermatomes intact to light touch sensation equally PT-OP-J Posture/Palpation/Skin Start: 10/29/23 13:02 Freq: Status: Active Protocol: Document 10/29/23 13:02 NM (Rec: 10/29/23 16:51 NM [id number]) Posture Evaluation Position Standing Evaluation View anterior, lateral Head/C-Spine Posture Forward Head T-Spine Posture Neutral L-Spine Posture Increased Lordosis Shoulder Posture (L) Forward,(R) Forward,(L) Elevated Pelvis Posture (L) Rotated Anterior,(L) Iliac Crest Superior Weight Distribution Balanced Hip Posture (L) Neutral,(R) Neutral Knee Posture (L) Genu Varus,(R) Genu Varus Patellar Posture (L) Superior,(R) Superior Ankle/Foot Posture (L) Pronated,(R) Pronated Palpation Assessment Location Lumbar spine Palpation Location L1-L5, B SIJ, QL, paraspinals Palpation Findings Soft Tissue Tightness, Tenderness Palpation Details Tenderness along L1-L5 just lateral to spinous processes bilaterally, R>L. Minimal tenderness along B SIJ, R>L. PT-OP-K Range of Motion Start: 10/29/23 13:02 Freq: Status: Active Protocol: Document 10/29/23 13:02 NM (Rec: 10/29/23 16:51 NM [id number]) Lumbar Spine Range of Motion Lumbar Spine Active Percentage Testing Position Standing Flexion 75 Extension 50 Rotation Left 50 Rotation Right 100 Lateral Flexion Left 50 Lateral Flexion Right 75 ROM Limitations Soft Tissue Tightness,Muscle Weakness Comments Flexion to mid-tibia; R rotation 8 cm, L rotation 4 cm with reports of R muscle stretch erector spinae; R lateral flex to 75% of thigh, L lateral flex to mid thigh with reports of stretching in R erector spinae. No pain reported Hip Goniometric Range of Motion Hip ROM Limitations Comments Full B hip ROM, does not provoke low back or nerve pain with any movement PT-OP-L Special Tests Start: 10/29/23 13:02 Freq: Status: Active Protocol: Document 10/29/23 13:02 NM (Rec: 10/29/23 16:51 NM [id number]) Special Tests Lumbar Spine Special Tests Slump Test Results negative bilaterally Comments reports hamstring tension with knee ext, no change with ext/ flex Prone Instability Test Test Results positive Comments no pain with P-A springing at L4-L5 with hips in ext when stabilized Pizano/Quadrant Test Results negative bilaterally Comments does not provoke facet or nerve pain Hip Special Tests FADIR Test Results negative bilaterally Other Special Tests Special Tests Supine to Long Sit Test: LLE longer than RLE in supine, even with RLE in sitting- indicates more anteriorly rotated L innominate PT-OP-M Strength Start: 10/29/23 13:02 Freq: Status: Active Protocol: Document 10/29/23 13:02 NM (Rec: 10/29/23 16:51 NM [id number]) Trunk Strength Trunk Manual Muscle Testing Testing Position Sitting Flexion 4+ Good+ Extension 4+ Good+ Rotation Left 4+ Good+ Rotation Right 4+ Good+ Lateral Flexion Left 4+ Good+ Lateral Flexion Right 4+ Good+ Comments does not reproduce pain Hip Strength Hip Manual Muscle Testing Right Flexion (L2) 4 Good Extension (S1) 4 Good Abduction 4 Good Adduction 4 Good External Rotation 4 Good Internal Rotation 4 Good Comments does not reproduce pain Left Flexion (L2) 4 Good Extension (S1) 4 Good Abduction 4 Good Adduction 4 Good External Rotation 4 Good Internal Rotation 4 Good Comments does not reproduce pain Knee Strength Knee Manual Muscle Testing Right Flexion (S2) 4+ Good+ Extension (L3) 4+ Good+ Comments does not reproduce pain Left Flexion (S2) 4+ Good+ Extension (L3) 4+ Good+ Comments does not reproduce pain PT-OP-T Assessment and Plan Start: 10/29/23 13:02 Freq: Status: Active Protocol: Document 10/29/23 13:02 NM (Rec: 10/29/23 13:53 NM [id number]) Physical Therapy Assessment Goals Three Impairment function, strength Prison Goal (LTG) Pt will demo good core bracing with standing, gait, and lifting during at least 5/10 reps for improved spinal stability during ADLs. LTG Duration 8 weeks Two Impairment ROM Impairment lumbar spine flexion 75% AROM, lateral flexion- 50% and R 75 % AROM Prison Goal (LTG) Pt will improve lumbar spine flexion and B lateral flexion AROM to > 75% without compensation in order to demonstrate improved trunk ROM for ADLs. LTG Duration 6 weeks One Impairment function Impairment reports low back pain with driving Short Term Goal (STG) Pt will report that he is able to drive or sit in the car for at least 30 min without pain or stiffness STG Duration 3 weeks [employer] Goal (LTG) Pt will report that he is able to drive or sit in the car for at least 60 min without pain or stiffness LTG Duration 6 weeks Assessment Summary Assessment Pt is a 73 y.o. male referred to clinic for low back pain with B sciatic symptoms. Currently, pt does not have any pain along his lumbar spine or sciatic symptoms. His last episode was in August 2023. However, he reports feelings of instability along his lumbar spine and concerns about spinal alignment. Pt has hx of lumbar laminectomy and discogenic symptoms. Pt currently has minor limitations in global spine ROM with reports of muscle stretch with L rotation and R lateral flexion. Trunk and B hip strength are functional and mild limitations. Symptoms are not reproduced with Pizano/ quadrant test, slump test. However, pt does report B hamstring tightness that is unchanged with cervical flexion/extension. Postural assessment reveals slight L innominate elevation with slight prominence that is confirmed with supine to long sit test. Gait assessment reveal excessive pelvic rotation with gait and slight R lateral trunk lean; however, not antalgic. Pt would benefit from skilled PT for pelvic alignment exercises, postural and core bracing education, and biomechanics modification in order to manage pain symptoms when present and return to PLOF. Physical Therapy Plan Frequency and Duration Frequency of Treatment 1-2x/wk Duration of treatment (weeks) 6 Plan of Care Start Date 10/29/23 Plan of Care End Date 12/14/23 Therapeutic Interventions Therapeutic Interventions Balance Training,Coordination Training,Gait Training,Home Exercise Program,Joint Mobilizations,Manual Therapy, Neuromuscular Re-education, Orthotic/Prosthetic Management ,Patient/Caregiver Education, Self-Care/Home Management, Sensory Integration,Soft Tissue Mobilization,Taping, Therapeutic Activities, Therapeutic Exercises Modalities Biofeedback,Cold Pack/Ice Massage,Electric Stimulation, Hot Packs,Ultrasound, Vasopneumatic Devices Other Therapeutic Interventions Muscle Energy Techniques Next Visit Focus/Plan Next Note Type Treatment Note Next Visit Plan MET for L Ant Innominate rotation, teach log roll. Lateral LS flexion stretches ( gentle), L lateral trunk shift , initiate TA activation/VPAC Next session: Measure hamstring length Avoid end range ext due to previous laminectomy
--- NOTE | 2023-10-29 16:01 | PT.OPPOC ---
Physical, Occupational & Speech Therapy At [facility] Current Diagnoses Lumbago with sciatica, unspecified side (10/29/23) Visit Care Team Role Provider Type Elma Piper MD Attending Provider Physician Family Provider Primary Care Provider Referring Provider Specialty: Internal Medicine Address: [place], [place], [facility] Email: Plan Of Care PT-OP-T Assessment and Plan Start: 10/29/23 13:02 Freq: Status: Active Protocol: Document 10/29/23 13:02 NM (Rec: 10/29/23 13:53 NM [id number]) Physical Therapy Assessment Goals Three Impairment function, strength [employer] Goal (LTG) Pt will demo good core bracing with standing, gait, and lifting during at least 5/10 reps for improved spinal stability during ADLs. LTG Duration 8 weeks Two Impairment ROM Impairment lumbar spine flexion 75% AROM, lateral flexion- 50% and R 75 % AROM [employer] Goal (LTG) Pt will improve lumbar spine flexion and B lateral flexion AROM to > 75% without compensation in order to demonstrate improved trunk ROM for ADLs. LTG Duration 6 weeks One Impairment function Impairment reports low back pain with driving Short Term Goal (STG) Pt will report that he is able to drive or sit in the car for at least 30 min without pain or stiffness STG Duration 3 weeks Jail Goal (LTG) Pt will report that he is able to drive or sit in the car for at least 60 min without pain or stiffness LTG Duration 6 weeks Assessment Summary Assessment Pt is a 73 y.o. male referred to clinic for low back pain with B sciatic symptoms. Currently, pt does not have any pain along his lumbar spine or sciatic symptoms. His last episode was in August 2023. However, he reports feelings of instability along his lumbar spine and concerns about spinal alignment. Pt has hx of lumbar laminectomy and discogenic symptoms. Pt currently has minor limitations in global spine ROM with reports of muscle stretch with L rotation and R lateral flexion. Trunk and B hip strength are functional and mild limitations. Symptoms are not reproduced with Pizano/ quadrant test, slump test. However, pt does report B hamstring tightness that is unchanged with cervical flexion/extension. Postural assessment reveals slight L innominate elevation with slight prominence that is confirmed with supine to long sit test. Gait assessment reveal excessive pelvic rotation with gait and slight R lateral trunk lean; however, not antalgic. Pt would benefit from skilled PT for pelvic alignment exercises, postural and core bracing education, and biomechanics modification in order to manage pain symptoms when present and return to PLOF. Physical Therapy Plan Frequency and Duration Frequency of Treatment 1-2x/wk Duration of treatment (weeks) 6 Plan of Care Start Date 10/29/23 Plan of Care End Date 12/14/23 Therapeutic Interventions Therapeutic Interventions Balance Training,Coordination Training,Gait Training,Home Exercise Program,Joint Mobilizations,Manual Therapy, Neuromuscular Re-education, Orthotic/Prosthetic Management ,Patient/Caregiver Education, Self-Care/Home Management, Sensory Integration,Soft Tissue Mobilization,Taping, Therapeutic Activities, Therapeutic Exercises Modalities Biofeedback,Cold Pack/Ice Massage,Electric Stimulation, Hot Packs,Ultrasound, Vasopneumatic Devices Other Therapeutic Interventions Muscle Energy Techniques Next Visit Focus/Plan Next Note Type Treatment Note Next Visit Plan MET for L Ant Innominate rotation, teach log roll. Lateral LS flexion stretches ( gentle), L lateral trunk shift , initiate TA activation/VPAC Next session: Measure hamstring length Avoid end range ext due to previous laminectomy Plan of Care Dates Plan of Care Start Date 10/29/23 Plan of Care End Date 12/14/23 Electronically Signed by: No South, PT 10/30/23 0755 If you are in agreement with this Plan of Care, please return a signed and dated copy. I have reviewed this Plan of Care and certify that the skilled therapy services above are required to meet the patient?s needs. Physician Signature Date Printed Name and Credentials Clinical Instructor Signature Printed Name and Credentials
--- NOTE | 2023-11-06 13:45 | PT.OTN ---
Current Diagnoses Lumbago with sciatica, unspecified side (11/06/23) Physical Therapy Treatment Note PT-OP-A Visit Information Start: 10/29/23 13:02 Freq: Status: Active Protocol: Document 11/06/23 13:05 SP (Rec: 11/06/23 13:55 SP [id number]) Out-Patient Physical Therapy Visit Information Visit Information Visit Type Treatment Note Visit Note KX after 19 visits Visit Start Time 13:05 Visit Stop Time 13:45 Total Visit Minutes 40 Visit Number 2 Number of [employer]CC[employer] HE[employer] PROFESSIONAL Visits 1 Evaluation Information Evaluation Date 10/29/23 Precautions Precautions Hx lumbar laminectomy PT-OP-B Current Condition Start: 10/29/23 13:02 Freq: Status: Active Protocol: Document 10/29/23 13:02 NM (Rec: 10/29/23 13:53 NM [id number]) Current Condition History of Current Condition Onset Date July 2023 Current Complaints crooked stance, feels unstable in spine History of Current Condition Pt presents to clinic to be evaluated for low back pain and sciatic symptoms. Currently, pt reports that he does not have any low back pain or sciatic symptoms. He does report feelings of spinal instability and having a crooked stance. Currently, no problems with lifting, sitting, walking. His low back pain is episodic with less pain per episode, usually R sided. However, in July 2023, he had a black out episode resulting in ED visit . When he was in the hospital bed, he experienced muscle cramping in his lumbar spine that was better with walking, worse with laying down. Pt has had PT for low back pain/ sciatica before; however, he reports that these was different pain. At the time, he had pain down back of legs, butt and ending at the back of legs to his knees. Original back pain since 18 y.o. Hx of laminectomy, degenerative disc disease, R sided. No change balance or sensation. Prior Treatments and Tests Prior PT for laminectomy and low back pain. Still performs exercises: pelvic alignment exercises, HS stretch, LTR, knee ext, figure 4, partial crunch, push up, cat stretch modified with neck rotation. Current Functional Impairments (Reported) Functional Limitations- ADL's Driving/Sit in car before low back pain and stiffness Functional Limitations- Other Pain with sleeping on stomach (only side or back sleep), rolling from front to back. PT-OP-C Subjective Start: 10/29/23 13:02 Freq: Status: Active Protocol: Document 11/06/23 13:05 SP (Rec: 11/06/23 13:55 SP [id number]) OP-PT Subjective Patient Comments Patient Comments Pt reports feel popping in back bending over putting dishes in discharge rn, trying to be mindful of proper body mechanics. Feels alignment not as good as can. He reports isn't able to type with R hand as well with difficulty spanning abduction of fingers, SLS putting on pants less balance on LLE than RLE, need lean against counter, of which could do in the past, new since eval with PT. He reported cancelled neurologist appt in Nov due to doing better but since then less mobility on R side most specific hand challenge typing and spreading fingers out into abduction. Also R DF isn' t as good as can be and feels affects his balance. Postural alignment wt shifts over RLE>LLE, trunk rotate L with R trunk lead off midline. PT-OP-E Functional Tests Start: 10/29/23 13:02 Freq: Status: Active Protocol: Document 10/29/23 13:02 NM (Rec: 10/29/23 16:51 NM [id number]) Functional Tests Five Times Sit to Stand Test Score 9.32 seconds Comments reports no pain with movements Other Forward Trunk Flexion Test Name of Test Fwd trunk flex reach to floor, measure finger tip from floor Score 10 Comment attempts to bend knees d/t stretch, no pain reported with trunk flexion PT-OP-F Manual Assessment Start: 10/29/23 13:02 Freq: Status: Active Protocol: Document 10/29/23 13:02 NM (Rec: 10/29/23 13:53 NM [id number]) Manual Assessments Soft Tissue Assessment Soft Tissue Mobility Assessment Tightness in B hamstrings with passive knee extension Joint Mobility Assessment Joint Mobility Assessment P-A springing of Lumbar spine does not reproduce pain; however, pt reports discomfort at L4-S1 spinous processes and B SIJ. Full hip PROM, does not reproduce pain. L innominate slightly more elevated and prominent anteriorly than R innominate. PT-OP-G Mobility & Gait Start: 10/29/23 13:02 Freq: Status: Active Protocol: Document 10/29/23 13:02 NM (Rec: 10/29/23 16:51 NM [id number]) OP Gait Assessment Gait Gait Assistance Required: Independent Distance (Feet) 200 Assistive Devices Assistive Device None Gait Deviations General Gait Pattern Lateral Trunk Lean Comments Gait Comments Demos lateral pelvic translation with gait, L>R. Slight R trunk lean, no trunk rotation. PT-OP-H Neuro Start: 10/29/23 13:02 Freq: Status: Active Protocol: Document 10/29/23 13:02 NM (Rec: 10/29/23 13:53 NM [id number]) Sensation Evaluation Gross Sensation Gross Sensation WNL Comments Summary Comments BLE dermatomes intact to light touch sensation equally PT-OP-J Posture/Palpation/Skin Start: 10/29/23 13:02 Freq: Status: Active Protocol: Document 10/29/23 13:02 NM (Rec: 10/29/23 16:51 NM [id number]) Posture Evaluation Position Standing Evaluation View anterior, lateral Head/C-Spine Posture Forward Head T-Spine Posture Neutral L-Spine Posture Increased Lordosis Shoulder Posture (L) Forward,(R) Forward,(L) Elevated Pelvis Posture (L) Rotated Anterior,(L) Iliac Crest Superior Weight Distribution Balanced Hip Posture (L) Neutral,(R) Neutral Knee Posture (L) Genu Varus,(R) Genu Varus Patellar Posture (L) Superior,(R) Superior Ankle/Foot Posture (L) Pronated,(R) Pronated Palpation Assessment Location Lumbar spine Palpation Location L1-L5, B SIJ, QL, paraspinals Palpation Findings Soft Tissue Tightness, Tenderness Palpation Details Tenderness along L1-L5 just lateral to spinous processes bilaterally, R>L. Minimal tenderness along B SIJ, R>L. PT-OP-K Range of Motion Start: 10/29/23 13:02 Freq: Status: Active Protocol: Document 10/29/23 13:02 NM (Rec: 10/29/23 16:51 NM [id number]) Lumbar Spine Range of Motion Lumbar Spine Active Percentage Testing Position Standing Flexion 75 Extension 50 Rotation Left 50 Rotation Right 100 Lateral Flexion Left 50 Lateral Flexion Right 75 ROM Limitations Soft Tissue Tightness,Muscle Weakness Comments Flexion to mid-tibia; R rotation 8 cm, L rotation 4 cm with reports of R muscle stretch erector spinae; R lateral flex to 75% of thigh, L lateral flex to mid thigh with reports of stretching in R erector spinae. No pain reported Hip Goniometric Range of Motion Hip ROM Limitations Comments Full B hip ROM, does not provoke low back or nerve pain with any movement PT-OP-L Special Tests Start: 10/29/23 13:02 Freq: Status: Active Protocol: Document 10/29/23 13:02 NM (Rec: 10/29/23 16:51 NM [id number]) Special Tests Lumbar Spine Special Tests Slump Test Results negative bilaterally Comments reports hamstring tension with knee ext, no change with ext/ flex Prone Instability Test Test Results positive Comments no pain with P-A springing at L4-L5 with hips in ext when stabilized Pizano/Quadrant Test Results negative bilaterally Comments does not provoke facet or nerve pain Hip Special Tests FADIR Test Results negative bilaterally Other Special Tests Special Tests Supine to Long Sit Test: LLE longer than RLE in supine, even with RLE in sitting- indicates more anteriorly rotated L innominate PT-OP-M Strength Start: 10/29/23 13:02 Freq: Status: Active Protocol: Document 10/29/23 13:02 NM (Rec: 10/29/23 16:51 NM [id number]) Trunk Strength Trunk Manual Muscle Testing Testing Position Sitting Flexion 4+ Good+ Extension 4+ Good+ Rotation Left 4+ Good+ Rotation Right 4+ Good+ Lateral Flexion Left 4+ Good+ Lateral Flexion Right 4+ Good+ Comments does not reproduce pain Hip Strength Hip Manual Muscle Testing Right Flexion (L2) 4 Good Extension (S1) 4 Good Abduction 4 Good Adduction 4 Good External Rotation 4 Good Internal Rotation 4 Good Comments does not reproduce pain Left Flexion (L2) 4 Good Extension (S1) 4 Good Abduction 4 Good Adduction 4 Good External Rotation 4 Good Internal Rotation 4 Good Comments does not reproduce pain Knee Strength Knee Manual Muscle Testing Right Flexion (S2) 4+ Good+ Extension (L3) 4+ Good+ Comments does not reproduce pain Left Flexion (S2) 4+ Good+ Extension (L3) 4+ Good+ Comments does not reproduce pain PT-OP-Q Treatments Start: 10/29/23 13:02 Freq: Status: Active Protocol: Document 11/06/23 13:05 SP (Rec: 11/06/23 13:55 SP [id number]) Therapeutic Exercises Supine Exercises pelvic realig Supine Exercise Name trialed in PT: 90 hip /90 knees Comments LLE isometric hip ext, RLE isometric hip flexion Sitting Exercises ankle Sitting Exercise Name DF, EV Side bilateral Resistance TB #2 Reps/Minutes x20 reps Comments cued knee statationary Standing Exercises wt shift Standing Exercise Name added to HEP: L glut and hip abd engagement Side left Reps/Minutes 5 reps x10 SH Comments cued postural alignment midline: R rotation L lat lean then wt shift into L band walk Standing Exercise Name trialed Reps/Minutes 10 ft 1 lap Comments reported LS recruitment, cued TA/PPT- hold for now 11/09/23 L lateral trunk flexion Standing Exercise Name AROM/R trunk stretch Side left Reps/Minutes 10 SH x10 Comments cued trunk midline: R trunk rotation/L lean then SB L UE down lat leg/R str shld ext Standing Exercise Name added to HEP Side bilateral Resistance Tb #1 Reps/Minutes 2x10 Comments cues WBOS, L trunk lean and R rotation midline, even BLE WB, TA [employer] Manual Therapy Treatment Joint Mobilizations pelvic innominent Joint R anterior tilt Body Position Hooklying Comments manual and instruction self muscle energy/isometric: L hip ext, R hip flexion- improved equal Self-Care/Home Management Treatment Education Patient Education Home Exercise Program,Posture, Safety Other Education Discussed with pt to call neurologist to reschedule his initial appt due to decreased in R hand and DF ROM that seems to be affecting his balance and typing, verbalized will do. PT-OP-T Assessment and Plan Start: 10/29/23 13:02 Freq: Status: Active Protocol: Document 11/06/23 13:05 SP (Rec: 11/06/23 13:55 SP [id number]) Physical Therapy Assessment Goals Three Impairment function, strength Chcf Goal (LTG) Pt will demo good core bracing with standing, gait, and lifting during at least 5/10 reps for improved spinal stability during ADLs. LTG Duration 8 weeks Two Impairment ROM Impairment lumbar spine flexion 75% AROM, lateral flexion- 50% and R 75 % AROM [facility] Goal (LTG) Pt will improve lumbar spine flexion and B lateral flexion AROM to > 75% without compensation in order to demonstrate improved trunk ROM for ADLs. LTG Duration 6 weeks One Impairment function Impairment reports low back pain with driving Short Term Goal (STG) Pt will report that he is able to drive or sit in the car for at least 30 min without pain or stiffness STG Duration 3 weeks Chcf Goal (LTG) Pt will report that he is able to drive or sit in the car for at least 60 min without pain or stiffness LTG Duration 6 weeks Assessment Summary Assessment Pt L pelvis anterior tilt, responded well to manual and self instruction isometric hip ext and R hip flexion. Pt has noticed decreased in mobility in R hand scow hand AROM typing, R foot DF that is affecting his balance little. Discussed rescheduled neurologist appt. Pt felt muscle tiring during ther ex, improved postural corrections post ed cues for re-eduction for trunk midline for equal effort strengthening . Pt would benefit from continued skilled PT to progress ROM and strength to return to community activities . [employer] PROFESSIONAL discussed with pt's primary PT for safety awareness of changes in strength since eval and suggestions gave pt during tx with agreement reach out to neurologist for further assessment. Physical Therapy Plan Frequency and Duration Frequency of Treatment 1-2x/wk Duration of treatment (weeks) 6 Plan of Care Start Date 10/29/23 Plan of Care End Date 12/14/23 Therapeutic Interventions Therapeutic Interventions Balance Training,Coordination Training,Gait Training,Home Exercise Program,Joint Mobilizations,Manual Therapy, Neuromuscular Re-education, Orthotic/Prosthetic Management ,Patient/Caregiver Education, Self-Care/Home Management, Sensory Integration,Soft Tissue Mobilization,Taping, Therapeutic Activities, Therapeutic Exercises Modalities Biofeedback,Cold Pack/Ice Massage,Electric Stimulation, Hot Packs,Ultrasound, Vasopneumatic Devices Other Therapeutic Interventions Muscle Energy Techniques Other Referrals/Consults Referrals/Consults Recommended Recommend referral to/ reschedule initial appt to see Neurologist for further assessment, decreased scow hand and DF AROM and strength. Next Visit Focus/Plan Next Note Type Treatment Note Next Visit Plan Next appt: Test scow hand and UE strength RvsL. Review HEP. POC:MET for L Ant Innominate rotation, teach log roll. Lateral LS flexion stretches ( gentle), L lateral trunk shift , initiate TA activation/VPAC Next session: Measure hamstring length Avoid end range ext due to previous laminectomy
--- NOTE | 2023-11-14 11:42 | PT-OP ANOTE ---
Addendum entered and electronically signed by Mariela Sampson PTA 11/14/23 11:50: [employer] chart reviewed ER note and concerning finds seen. Noted pt was transferred to [facility] for further assessment. [employer] left 2nd voice message and discussed with significant change in medical status will be discharging him from PT. Please call back when more stable and would welcome to support him in return to PLOF mobility, can get new referral to return to PT when safe and cleared from physician. [employer] discussed with supervising PT No, she will complete DC from PT. Original Note: BR[employer] called pt, left VM regarding noticed went to ER, and had Imaging yesterday. Suggested call back to discussed how mobility going and if safe/ok to be working with him in PT at this time. Has an appt today at [phone].
--- NOTE | 2024-06-10 07:58 | PT.OPDS ---
Current Diagnoses Lumbago with sciatica, unspecified side (11/06/23) Visit Care Team Role Provider Type Elma Piper MD Attending Provider Physician Family Provider Primary Care Provider Referring Provider Specialty: Internal Medicine Address: [place], [address] Email: Visit Number Visit Number 2 Discharge Summary PT-OP-B Current Condition Start: 10/29/23 13:02 Freq: Status: Active Protocol: Document 10/29/23 13:02 NM (Rec: 10/29/23 13:53 NM [id number]) Current Condition History of Current Condition Onset Date July 2023 Current Complaints crooked stance, feels unstable in spine History of Current Condition Pt presents to clinic to be evaluated for low back pain and sciatic symptoms. Currently, pt reports that he does not have any low back pain or sciatic symptoms. He does report feelings of spinal instability and having a crooked stance. Currently, no problems with lifting, sitting, walking. His low back pain is episodic with less pain per episode, usually R sided. However, in July 2023, he had a black out episode resulting in ED visit . When he was in the hospital bed, he experienced muscle cramping in his lumbar spine that was better with walking, worse with laying down. Pt has had PT for low back pain/ sciatica before; however, he reports that these was different pain. At the time, he had pain down back of legs, butt and ending at the back of legs to his knees. Original back pain since 18 y.o. Hx of laminectomy, degenerative disc disease, R sided. No change balance or sensation. Prior Treatments and Tests Prior PT for laminectomy and low back pain. Still performs exercises: pelvic alignment exercises, HS stretch, LTR, knee ext, figure 4, partial crunch, push up, cat stretch modified with neck rotation. Current Functional Impairments (Reported) Functional Limitations- ADL's Driving/Sit in car before low back pain and stiffness Functional Limitations- Other Pain with sleeping on stomach (only side or back sleep), rolling from front to back. PT-OP-C Subjective Start: 10/29/23 13:02 Freq: Status: Active Protocol: Document 11/06/23 13:05 SP (Rec: 11/06/23 13:55 SP [id number]) OP-PT Subjective Patient Comments Patient Comments Pt reports feel popping in back bending over putting dishes in bag printer, trying to be mindful of proper body mechanics. Feels alignment not as good as can. He reports isn't able to type with R hand as well with difficulty spanning abduction of fingers, SLS putting on pants less balance on LLE than RLE, need lean against counter, of which could do in the past, new since eval with PT. He reported cancelled neurologist appt in Nov due to doing better but since then less mobility on R side most specific hand challenge typing and spreading fingers out into abduction. Also R DF isn' t as good as can be and feels affects his balance. Postural alignment wt shifts over RLE>LLE, trunk rotate L with R trunk lead off midline. PT-OP-E Functional Tests Start: 10/29/23 13:02 Freq: Status: Active Protocol: Document 10/29/23 13:02 NM (Rec: 10/29/23 16:51 NM [id number]) Functional Tests Five Times Sit to Stand Test Score 9.32 seconds Comments reports no pain with movements Other Forward Trunk Flexion Test Name of Test Fwd trunk flex reach to floor, measure finger tip from floor Score 10 Comment attempts to bend knees d/t stretch, no pain reported with trunk flexion PT-OP-F Manual Assessment Start: 10/29/23 13:02 Freq: Status: Active Protocol: Document 10/29/23 13:02 NM (Rec: 10/29/23 13:53 NM [id number]) Manual Assessments Soft Tissue Assessment Soft Tissue Mobility Assessment Tightness in B hamstrings with passive knee extension Joint Mobility Assessment Joint Mobility Assessment P-A springing of Lumbar spine does not reproduce pain; however, pt reports discomfort at L4-S1 spinous processes and B SIJ. Full hip PROM, does not reproduce pain. L innominate slightly more elevated and prominent anteriorly than R innominate. PT-OP-G Mobility & Gait Start: 10/29/23 13:02 Freq: Status: Active Protocol: Document 10/29/23 13:02 NM (Rec: 10/29/23 16:51 NM [id number]) OP Gait Assessment Gait Gait Assistance Required: Independent Distance (Feet) 200 Assistive Devices Assistive Device None Gait Deviations General Gait Pattern Lateral Trunk Lean Comments Gait Comments Demos lateral pelvic translation with gait, L>R. Slight R trunk lean, no trunk rotation. PT-OP-H Neuro Start: 10/29/23 13:02 Freq: Status: Active Protocol: Document 10/29/23 13:02 NM (Rec: 10/29/23 13:53 NM [id number]) Sensation Evaluation Gross Sensation Gross Sensation WNL Comments Summary Comments BLE dermatomes intact to light touch sensation equally PT-OP-J Posture/Palpation/Skin Start: 10/29/23 13:02 Freq: Status: Active Protocol: Document 10/29/23 13:02 NM (Rec: 10/29/23 16:51 NM [id number]) Posture Evaluation Position Standing Evaluation View anterior, lateral Head/C-Spine Posture Forward Head T-Spine Posture Neutral L-Spine Posture Increased Lordosis Shoulder Posture (L) Forward,(R) Forward,(L) Elevated Pelvis Posture (L) Rotated Anterior,(L) Iliac Crest Superior Weight Distribution Balanced Hip Posture (L) Neutral,(R) Neutral Knee Posture (L) Genu Varus,(R) Genu Varus Patellar Posture (L) Superior,(R) Superior Ankle/Foot Posture (L) Pronated,(R) Pronated Palpation Assessment Location Lumbar spine Palpation Location L1-L5, B SIJ, QL, paraspinals Palpation Findings Soft Tissue Tightness, Tenderness Palpation Details Tenderness along L1-L5 just lateral to spinous processes bilaterally, R>L. Minimal tenderness along B SIJ, R>L. PT-OP-K Range of Motion Start: 10/29/23 13:02 Freq: Status: Active Protocol: Document 10/29/23 13:02 NM (Rec: 10/29/23 16:51 NM [id number]) Lumbar Spine Range of Motion Lumbar Spine Active Percentage Testing Position Standing Flexion 75 Extension 50 Rotation Left 50 Rotation Right 100 Lateral Flexion Left 50 Lateral Flexion Right 75 ROM Limitations Soft Tissue Tightness,Muscle Weakness Comments Flexion to mid-tibia; R rotation 8 cm, L rotation 4 cm with reports of R muscle stretch erector spinae; R lateral flex to 75% of thigh, L lateral flex to mid thigh with reports of stretching in R erector spinae. No pain reported Hip Goniometric Range of Motion Hip ROM Limitations Comments Full B hip ROM, does not provoke low back or nerve pain with any movement PT-OP-L Special Tests Start: 10/29/23 13:02 Freq: Status: Active Protocol: Document 10/29/23 13:02 NM (Rec: 10/29/23 16:51 NM [id number]) Special Tests Lumbar Spine Special Tests Slump Test Results negative bilaterally Comments reports hamstring tension with knee ext, no change with ext/ flex Prone Instability Test Test Results positive Comments no pain with P-A springing at L4-L5 with hips in ext when stabilized Pizano/Quadrant Test Results negative bilaterally Comments does not provoke facet or nerve pain Hip Special Tests FADIR Test Results negative bilaterally Other Special Tests Special Tests Supine to Long Sit Test: LLE longer than RLE in supine, even with RLE in sitting- indicates more anteriorly rotated L innominate PT-OP-M Strength Start: 10/29/23 13:02 Freq: Status: Active Protocol: Document 10/29/23 13:02 NM (Rec: 10/29/23 16:51 NM [id number]) Trunk Strength Trunk Manual Muscle Testing Testing Position Sitting Flexion 4+ Good+ Extension 4+ Good+ Rotation Left 4+ Good+ Rotation Right 4+ Good+ Lateral Flexion Left 4+ Good+ Lateral Flexion Right 4+ Good+ Comments does not reproduce pain Hip Strength Hip Manual Muscle Testing Right Flexion (L2) 4 Good Extension (S1) 4 Good Abduction 4 Good Adduction 4 Good External Rotation 4 Good Internal Rotation 4 Good Comments does not reproduce pain Left Flexion (L2) 4 Good Extension (S1) 4 Good Abduction 4 Good Adduction 4 Good External Rotation 4 Good Internal Rotation 4 Good Comments does not reproduce pain Knee Strength Knee Manual Muscle Testing Right Flexion (S2) 4+ Good+ Extension (L3) 4+ Good+ Comments does not reproduce pain Left Flexion (S2) 4+ Good+ Extension (L3) 4+ Good+ Comments does not reproduce pain PT-OP-T Assessment and Plan Start: 10/29/23 13:02 Freq: Status: Active Protocol: Document 06/10/24 07:54 NM (Rec: 06/10/24 07:57 NM [id number]) Physical Therapy Assessment Goals Three Impairment function, strength Senior Care Goal (LTG) Pt will demo good core bracing with standing, gait, and lifting during at least 5/10 reps for improved spinal stability during ADLs. LTG Duration 8 weeks Two Impairment ROM Impairment lumbar spine flexion 75% AROM, lateral flexion- 50% and R 75 % AROM Sewing Machinist Goal (LTG) Pt will improve lumbar spine flexion and B lateral flexion AROM to > 75% without compensation in order to demonstrate improved trunk ROM for ADLs. LTG Duration 6 weeks One Impairment function Impairment reports low back pain with driving Short Term Goal (STG) Pt will report that he is able to drive or sit in the car for at least 30 min without pain or stiffness STG Duration 3 weeks Sewing Machinist Goal (LTG) Pt will report that he is able to drive or sit in the car for at least 60 min without pain or stiffness LTG Duration 6 weeks Assessment Summary Assessment Pt was evaluated in October 2023 for back pain. He attended x1 session following evaluation. On 11/14/23, ADMINISTRATIVE FELLOW Mariela Sampson was chart reviewing for upcoming pt appointment and noticed pt had ED visit prior to 11/14 appointment. ADMINISTRATIVE FELLOW called pt to determine if safe to mobilize, but pt had been transferred to [facility] for further assessment. Due to change in medical status, pt will be discharged from PT and will need new referral when medically appropriate to return to PT. Physical Therapy Plan Frequency and Duration Frequency of Treatment 1-2x/wk Duration of treatment (weeks) 6 Plan of Care Start Date 10/29/23 Plan of Care End Date 12/14/23 Therapeutic Interventions Therapeutic Interventions Balance Training,Coordination Training,Gait Training,Home Exercise Program,Joint Mobilizations,Manual Therapy, Neuromuscular Re-education, Orthotic/Prosthetic Management ,Patient/Caregiver Education, Self-Care/Home Management, Sensory Integration,Soft Tissue Mobilization,Taping, Therapeutic Activities, Therapeutic Exercises Modalities Biofeedback,Cold Pack/Ice Massage,Electric Stimulation, Hot Packs,Ultrasound, Vasopneumatic Devices Other Therapeutic Interventions Muscle Energy Techniques Other Referrals/Consults Referrals/Consults Recommended Recommend referral to/ reschedule initial appt to see Neurologist for further assessment, decreased wool sorter and DF AROM and strength. Discharge Physical Therapy Discharge Reasons Change in Medical Status Discharge Comments Pt has not been seen in clinic since 11/06/23 and was in ED prior to 11/14/23 visit. Pt was transferred to [facility] for further assessment of symptoms. Due to change in medical status, pt will be discharged from PT and will need new referral when medically appropriate to return to PT. Next Visit Focus/Plan Next Visit Plan discharge from PT
== END 2024-06-20 08:18 | disposition home or self-care (01) ==
LOC: PHYS 13:00
PROVIDERS: Family Provider Internal Medicine; PCP Internal Medicine; Referring Provider Internal Medicine; Visit Provider Internal Medicine
DX: M54.40 Lumbago with sciatica, unspecified side (principal)
CPT/HCPCS: 97110; 97161

== ENCOUNTER → 2023-11-13 11:51 | Outpatient (CLI) | payer MEDICARE, OTHER, SELFPAY ==
[2023-08-23 22:02] VITALS: BMI 27.8
--- NOTE | 2023-11-13 | DI.CT.S_ITS ---
PROCEDURE: CT HEAD/BRAIN WO CON INDICATIONS: PARESTHESIA TECHNIQUE: Noncontrast 4.5 mm thick angled axial sections acquired from the foramen magnum to the vertex, with coronal and sagittal reformats. For radiation dose reduction, the following was used: automated exposure control, adjustment of mA and/or kV according to patient size. COMPARISON: [facility], CT, CT HEAD/BRAIN WO CON, 08/23/2023, 15:56. FINDINGS: Image quality: Diagnostic. CSF spaces: Left cerebral convexity extra-axial collection measuring up to 2.3 cm. The majority collection is hypodense and likely chronic in etiology. There is a layering hyperdense component which may represent more acute blood products. Small isodense right cerebral convexity subdural measuring up 7 mm. Basal cisterns are patent. Mass effect on the left lateral ventricle.. Brain: There is approximately 5 mm of rightward midline shift. Few tiny hyperdense foci within the sulci of the right frontal lobe, may represent sequela of prior subarachnoid hemorrhage. No intracranial masses or hemorrhage. Mendoza-white matter interface is normal. Intracranial atherosclerotic vascular calcifications. Skull and face: Calvarium and visualized facial bones are intact, without suspicious lesions. Bilateral lens replacements. Otherwise, the orbits are unremarkable. Sinuses: Visualized sinuses and mastoids are clear. IMPRESSION: Interval development of a large left subdural hematoma measuring up to 2.3 cm in thickness with a more dense component, concerning for acute on chronic blood product. There is resultant 5 mm of rightward midline shift. There is a small right cerebral convexity subdural hematoma measuring up to 7 mm. Tiny hyperdense foci within the sulci of the right frontal lobe, likely sequela of prior subarachnoid hemorrhage. No definite acute subarachnoid hemorrhage is seen. Findings were discussed with the patient at the time of the exam and patient was subsequently sent to the emergency department for further evaluation. Dictated by: Andres Almanzar M.D. on 11/13/2023 at 14:03 Approved by: Andres Almanzar M.D. on 11/13/2023 at 14:08
== END ==
PROVIDERS: Family Provider Internal Medicine; PCP Internal Medicine; Referring Provider Internal Medicine; Visit Provider Internal Medicine
DX: I62.00 Nontraumatic subdural hemorrhage, unspecified (principal); R20.2 Paresthesia of skin
CPT/HCPCS: 70450

== ENCOUNTER 2023-11-13 13:45 | Emergency (ER) | payer MEDICARE, OTHER, SELFPAY ==
[2023-08-23 22:02] VITALS: BMI 27.8
[2023-11-13] VITALS (8 sets, daily range): BP systolic 123–149; BP diastolic 63–77; PULSE 47–59; RESP 12–21; TEMP 36.6; O2SAT 97–100; BMI 28.0
--- NOTE | 2023-11-13 13:54 | ED_ITS ---
HPI - Neuro Symptoms/Deficit General Chief Complaint: Neuro Symptoms/Deficit Stated Complaint: + Head Bleed Time Seen by Provider: 11/13/23 13:54 Source: patient Mode of arrival: Ambulatory History of Present Illness HPI Narrative: 73-year-old male with history of hypertension, gout, mood disorder and scattered subarachnoid hemorrhage in August of 2023 after fall and mastoid fracture. Patient was seen here in August with fall, had mastoid fracture developed bilateral subarachnoid hemorrhages which were felt to be stable was overnight and had syncope workup at our facility. Was not transferred. In the past 10 days he has had increased weakness on his right side difficulty typing, writing, he thinks maybe some memory issues as well. He denies vision changes. He has had mild headaches. No neck pain. Patient denies any chest pain or shortness of breath. He denies any nausea or vomiting. He notes he has been dragging his right foot she has been progressing over the past week according to him and his . He has had to start to hang onto things when he ambulates.. He states he has been off balance. Denies any other GI or urinary symptoms. No incontinence. Patient states no trauma since August. On Anticoagulants: No Related Data Home Medications Medication Instructions Recorded Confirmed allopurinol 300 mg tablet 300 mg PO BEDTIME 01/02/19 11/13/23 losartan 100 mg tablet 100 mg PO BEDTIME 01/02/19 11/13/23 cholecalciferol (vitamin D3) 25 1,000 unit PO BEDTIME 11/13/23 11/13/23 mcg (1,000 unit) tablet (Vitamin D3) lamotrigine 150 mg tablet 150 mg PO BEDTIME 11/13/23 11/13/23 (Lamictal) Allergies Allergy/AdvReac Type Severity Reaction Status Date / Time atorvastatin [ATORVASTATIN] Allergy Intermediate Verified 11/13/23 13:54 ciprofloxacin [From CIPRO] Allergy Intermediate Verified 11/13/23 13:54 erythromycin base Allergy Mild HEACACHE, Verified 11/13/23 13:54 [ERYTHROMYCIN BASE] SWELLING, FEEL TERRIBLE Review of Systems Review of Systems ROS Unobtainable: All systems reviewed & are unremarkable except as noted in HPI and below Hematologic/Lymphatic On Anticoagulants: No Patient History Family History Father No problems noted. Mother No problems noted. Social History Smoking Status: Never smoker Smoking Status: Never smoker alcohol intake frequency: other Substance Use Type: does not use Exam Narrative Exam Narrative: GEN:CPatient appears in mild distress. HEAD: No evidence of trauma, no raccoon/Carvajal sign. NECK: Nontender, painless range of motion, trachea midline Negative Nexus criteria, there is no midline line tenderness, distracting injury, altered mental status, neuro deficit, recent EtOH. EYES: PERRLA, EOMI ENT: External inspection normal, trachea is midline, TM's are normal no hemotypanum, Nares are clear, no septal hematoma, no dental or oral injury, airway is normal and with normal occlusion, No bony tenderness RESP: Chest is nontender and has symmetric movement, no ecchymosis, breath sounds are normal no crackles, wheezes or rales CVS: Heart sounds are normal, no murmur noted, No JVD. ABG/GI: Nontender, soft, normal bowel sounds, no distention, no organomegaly, pelvic rock is negative NEURO: Oriented AOx3, neuro is grossly intact, sensation equal in all 4 extremities, patient does have drift with his right upper extremity and weakness with laboratory tech on the right, also has some drift on the right lower extremity. Cranial nerves II through XII are intact, GCS is 15 PSYCH: Normal mood and affect SKIN: Intact, warm and dry, no crepitus and without decubitus BACK: No CVA tenderness, no vertebral tenderness, no step-off's, no crepitus EXT: Atraumatic, hips are nontender. Initial Vital Signs Initial Vital Signs: Vital Signs Temperature 97.8 F 11/13/23 13:48 Pulse Rate 55 L 11/13/23 13:48 Respiratory Rate 14 11/13/23 13:48 Blood Pressure 149/73 H 11/13/23 13:48 Pulse Oximetry 99 11/13/23 13:48 Oxygen Delivery Method Room Air 11/13/23 13:48 Course Orders Ordered: Discontinued Medications Ondansetron HCl (Ondansetron 4 Mg Odt) 4 mg PO NOW PRN PRN Reason: Nausea And Vomiting Ondansetron HCl (Ondansetron 4 Mg/2 Ml Inj) 4 mg IV NOW PRN PRN Reason: Nausea And Vomiting Vital Signs Vital signs: Vital Signs - 8 hr 11/13/23 13:48 11/13/23 13:53 11/13/23 14:00 Temperature 97.8 F Pulse Rate 55 L 51 L Respiratory Rate 14 12 Blood Pressure 149/73 H 145/63 H Pulse Oximetry 99 99 Oxygen Delivery Method Room Air Room Air 11/13/23 14:00 11/13/23 14:30 11/13/23 14:30 Temperature Pulse Rate 47 L 53 L Respiratory Rate 15 18 Blood Pressure 123/77 Pulse Oximetry 100 100 Oxygen Delivery Method 11/13/23 15:00 11/13/23 15:00 Temperature Pulse Rate 55 L Respiratory Rate 18 Blood Pressure 134/71 Pulse Oximetry 97 Oxygen Delivery Method Room Air MDM - Neuro Symptoms/Deficit Lab Data 11/13/23 13:58 11/13/23 13:58 Labs: Lab Results 11/13/23 Range/Units 13:58 WBC 4.7 (4.5-11.0) X10^3/uL RBC 4.95 (4.5-5.9) X10^6/uL Hgb 15.2 (13.5-17.5) g/dL Hct 45.0 (41-53) % MCV 90.9 (80-100) fL MCH 30.7 (26-34) PG MCHC 33.8 (30-36) % RDW 13.3 (11.6-14.8) % Plt Count 214 (150-400) X10^3/uL Neut % (Auto) 63.8 (50-75) % Lymph % (Auto) 24.2 L (25-40) % [place] % (Auto) 7.6 (3-14) % Eos % (Auto) 3.4 (2-4) % Baso % (Auto) 1.0 (0-2) % Neut # (Auto) 3000 (5625-6826) /uL Lymph # (Auto) 1100 (2516-4911) /uL [place] # (Auto) 400 (0-900) /uL Eos # (Auto) 200 (0-450) /uL Baso # (Auto) 0 (0-100) /uL PT 11.5 (9.4-12.5) SECONDS INR 1.0 (0.9-1.3) Sodium 138 (137-145) mmol/L Potassium 3.9 (3.4-5.1) mmol/L Chloride 100 (98-107) mmol/L Carbon Dioxide 29 (22-32) mmol/L BUN 13 (9-20) mg/dL Creatinine 1.02 (0.66-1.25) mg/dL Estimated GFR > 60 (>60) mL/min BUN/Creatinine Ratio 12.7 (6-22) Glucose 105 (80-110) mg/dL Calcium 9.3 (8.4-10.2) mg/dL Total Bilirubin 2.1 H (0.2-1.3) mg/dL AST 36 (17-59) IU/L ALT 43 (<50) IU/L Alkaline Phosphatase 80 (38-126) U/L Total Protein 8.1 (6.3-8.2) g/dL Albumin 4.5 (3.5-5.0) g/dL Globulin 3.6 (1.7-4.1) g/dL Albumin/Globulin Ratio 1.3 (1.0-2.8) Lipase 124 (23-300) U/L Imaging Data CT scan - head: Radiologist's Impression: [place] [address] CT Scan Report Signed Patient: Orion Osman MR#: [id number] : 1950 Acct:[id number] Age/Sex: 73 / M Date of Service: 11/13/23 Loc: CT Accession Number: [id number] Procedure: CT head/brain wo con Ordering Provider: Elma Piper MD PROCEDURE: CT HEAD/BRAIN WO CON INDICATIONS: PARESTHESIA TECHNIQUE: Noncontrast 4.5 mm thick angled axial sections acquired from the foramen magnum to the vertex, with coronal and sagittal reformats. For radiation dose reduction, the following was used: automated exposure control, adjustment of mA and/or kV according to patient size. COMPARISON: [facility], CT, CT HEAD/BRAIN WO CON, 08/23/2023, 15:56. FINDINGS: Image quality: Diagnostic. CSF spaces: Left cerebral convexity extra-axial collection measuring up to 2.3 cm. The majority collection is hypodense and likely chronic in etiology. There is a layering hyperdense component which may represent more acute blood products. Small isodense right cerebral convexity subdural measuring up 7 mm. Basal cisterns are patent. Mass effect on the left lateral ventricle.. Brain: There is approximately 5 mm of rightward midline shift. Few tiny hyperdense foci within the sulci of the right frontal lobe, may represent sequela of prior subarachnoid hemorrhage. No intracranial masses or hemorrhage. Mendoza-white matter interface is normal. Intracranial atherosclerotic vascular calcifications. Skull and face: Calvarium and visualized facial bones are intact, without suspicious lesions. Bilateral lens replacements. Otherwise, the orbits are unremarkable. Sinuses: Visualized sinuses and mastoids are clear. IMPRESSION: Interval development of a large left subdural hematoma measuring up to 2.3 cm in thickness with a more dense component, concerning for acute on chronic blood product. There is resultant 5 mm of rightward midline shift. There is a small right cerebral convexity subdural hematoma measuring up to 7 mm. Tiny hyperdense foci within the sulci of the right frontal lobe, likely sequela of prior subarachnoid hemorrhage. No definite acute subarachnoid hemorrhage is seen. Findings were discussed with the patient at the time of the exam and patient was subsequently sent to the emergency department for further evaluation. Dictated by: Andres Almanzar M.D. on 11/13/2023 at 14:03 Approved by: Andres Almanzar M.D. on 11/13/2023 at 14:08 ECG Data Attestation: I personally reviewed and interpreted this ECG as follows: Interpretation: Rate of 51 [place] 144 QRS of 108 [address]TC [address] No acute ST changes appreciated sinus bradycardia with premature atrial complexes. MDM Narrative Medical decision making narrative: Pleasant 73-year-old male who came to the emergency department after having about a week to 10 days of progressive right-sided weakness, dragging of his foot difficulty using tanned and possible memory issues confusion although patient and state no dysarthria. Patient's does have weakness drift with his right upper extremity decreased laboratory tech, weakness of his right lower extremity. He was not ambulated but describes difficulty with gait and dragging of his right foot. Patient is not anticoagulated. He did have a traumatic head injury on 08/23/2023 with mastoid fracture, scattered subarachnoid bilaterally that had repeat imaging ultimately was cleared as stable by Neurosurgery through [facility] and was kept for syncope workup. Patient states in the past 10 days he has had increasing symptoms with mild headaches. Does not describe any recent trauma. Patient was found to have on outpatient CT a large subdural on the left that is 2.3 cm with a more dense component concerning for acute on chronic blood products, resultant 5 mm right midline shift and a small right cerebral convexity subdural 7 mm. Tiny hyperdense foci noted likely sequela from prior subarachnoid no obvious definitive acute subarachnoid. Patient appears to be neurologically intact over all does have weakness on examination but is clearly protecting airway. Images pushed to [facility]. Spoke with neurosurgery, accepts for transfer to [facility] Emergency Department. Plan for ALS ground transport. Discussed patient's GCS of 15 right now but does have right-sided weakness. Dr.Barros Benoit is the accepting physician. Critical Care Time Critical Care Time Critical Care Time: Yes Total Critical Care Time: 35 Attestation: The high probability of a clinically significant, sudden or life threatening deterioration of the [neurologic] system(s) required my full and direct attention, intervention and personal management. The aggregate critical care time was [] minutes. This time is in addition to time spent performing reported procedures but includes the following: [x] Data Review and interpretation [x] Patient assessment and monitoring of vital signs [x] Documentation [x] Medication orders and management Discharge Plan Departure Patient Disposition: [facility] Clinical Impression: Subdural bleeding Prescriptions: No Action allopurinol 300 mg tablet 300 mg PO BEDTIME losartan 100 mg tablet 100 mg PO BEDTIME cholecalciferol (vitamin D3) [Vitamin D3] 25 mcg (1,000 unit) Tablet 1,000 unit PO BEDTIME lamotrigine [Lamictal] 150 mg tablet 150 mg PO BEDTIME Rx Instructions: Take 1 tab daily Referrals: Elma Piper MD [Primary Care Provider] -
--- NOTE | 2023-11-13 14:05 | PC.NURSE ---
reports that he has been dragging his right foot. pt states he has been having trouble with his memory and striking keys on the computer. right hand only. feels like he has been getting weaker on the right side.
[2023-11-13 14:08] LABS: Add Manual Diff / Slide Review NO; Basophils Absolute Auto 0 /uL (0-100); Eosinophils Absolute Auto 200 /uL (0-450); Eosinophils Percent Auto 3.4 % (2-4); Hemoglobin 15.2 g/dL (13.5-17.5); Lymphocytes Absolute Auto 1100 /uL (1100-4500); Lymphocytes Percent Auto 24.2 % (25-40); Mean Corpuscular HGB Conc 33.8 % (30-36); Mean Corpuscular Hemoglobin 30.7 PG (26-34); Mean Corpuscular Volume 90.9 fL (80-100); Monocytes Absolute Auto 400 /uL (0-900); Monocytes Percent Auto 7.6 % (3-14); Neutrophils Absolute Auto 3000 /uL (1500-7000); Neutrophils Percent Auto 63.8 % (50-75); Platelet Count 214 X10^3/uL (150-400); Red Blood Cell Count 4.95 X10^6/uL (4.5-5.9); Red Cell Distribution Width 13.3 % (11.6-14.8); White Blood Cell Count 4.7 X10^3/uL (4.5-11.0)
[2023-11-13 14:23] LABS: Prothrombin Time 11.5 SECONDS (9.4-12.5)
[2023-11-13 14:27] LABS: Alanine Aminotransferase 43 IU/L (<50); Albumin 4.5 g/dL (3.5-5.0); Albumin Globulin Ratio 1.3 (1.0-2.8); Alkaline Phosphatase 80 U/L (38-126); Aspartate Aminotransferase 36 IU/L (17-59); BUN Creatinine Ratio 12.7 (6-22); Bilirubin Total 2.1 mg/dL (0.2-1.3); Blood Urea Nitrogen 13 mg/dL (9-20); Calcium 9.3 mg/dL (8.4-10.2); Carbon Dioxide 29 mmol/L (22-32); Chloride 100 mmol/L (98-107); Estimated Glomerular Filt Rate > 60 mL/min (>60); Globulin 3.6 g/dL (1.7-4.1); Glucose 105 mg/dL (80-110); HEMOLYSIS < 15 (0-50); Lipase 124 U/L (23-300); Potassium 3.9 mmol/L (3.4-5.1); Sodium 138 mmol/L (137-145); Total Protein 8.1 g/dL (6.3-8.2)
== END 2023-11-13 16:14 | disposition short-term general hospital (02) ==
PROVIDERS: Emergency Provider Emergency Medicine; Family Provider Internal Medicine; PCP Internal Medicine
DX: S06.5XAD Traumatic subdural hemorrhage with loss of consciousness status unknown, subsequent encounter (principal); R10.9 Unspecified abdominal pain; I62.00 Nontraumatic subdural hemorrhage, unspecified; R20.2 Paresthesia of skin
CPT/HCPCS: 36415; 70450; 80053; 83690; 85025; 85610; 93005; 99284; 99291

== ENCOUNTER → 2024-01-11 10:47 | Outpatient (CLI) | payer MEDICARE, OTHER, SELFPAY ==
[2023-08-23 22:02] VITALS: BMI 27.8
[2024-01-11 12:38] LABS: Alanine Aminotransferase 48 IU/L (<50); Albumin 4.5 g/dL (3.5-5.0); Albumin Globulin Ratio 1.4 (1.0-2.8); Alkaline Phosphatase 84 U/L (38-126); Aspartate Aminotransferase 37 IU/L (17-59); Bilirubin Total 1.7 mg/dL (0.2-1.3); Blood Urea Nitrogen 13 mg/dL (9-20); Calcium 9.3 mg/dL (8.4-10.2); Carbon Dioxide 33 mmol/L (22-32); Chloride 103 mmol/L (98-107); Cholesterol 125 mg/dL (140-199); Estimated Glomerular Filt Rate > 60 mL/min (>60); Globulin 3.2 g/dL (1.7-4.1); Glucose 106 mg/dL (80-110); HDL Cholesterol 41 mg/dL (40-60); HEMOLYSIS < 15 (0-50); LDL Cholesterol Calculated 55 mg/dL (<100); Potassium 4.1 mmol/L (3.4-5.1); Sodium 141 mmol/L (137-145); Total Protein 7.7 g/dL (6.3-8.2); Triglycerides 144 mg/dL (35-150)
== END ==
PROVIDERS: Family Provider Internal Medicine; PCP Internal Medicine; Referring Provider Internal Medicine; Visit Provider Internal Medicine
DX: E78.5 Hyperlipidemia, unspecified (principal)
CPT/HCPCS: 36415; 80053; 80061

== ENCOUNTER 2024-03-06 14:57 | Emergency (ER) | payer MEDICARE, OTHER, SELFPAY ==
[2023-08-23 22:02] VITALS: BMI 27.8
[2024-03-06 15:03] VITALS: BP 118/58; PULSE 67; RESP 15; TEMP 36.4; O2SAT 97; BMI 27.8
--- NOTE | 2024-03-06 15:18 | DI.RAD.S_ITS ---
PROCEDURE: XR CHEST 1V INDICATIONS: chest pain TECHNIQUE: One view of the chest was acquired. COMPARISON: [facility], CR, XR CHEST 1V, 08/23/2023, 10:12. [facility], CR, XR CHEST 2V, 08/06/2019, 13:51. FINDINGS: Surgical changes and devices: None. Lungs and pleura: Lungs are clear. No pleural effusions or pneumothorax. Mediastinum: Mediastinal contours appear normal. Heart size is normal. Bones and chest wall: No suspicious bony lesions. Overlying soft tissues appear unremarkable. IMPRESSION: No acute cardiopulmonary abnormality is seen. Dictated by: Kurt Guzmán M.D. on 03/06/2024 at 15:57 Approved by: Kurt Guzmán M.D. on 03/06/2024 at 15:57
--- NOTE | 2024-03-06 15:18 | DI.CT.S_ITS ---
PROCEDURE: CT HEAD/BRAIN WO CON INDICATIONS: syncopal episode TECHNIQUE: Noncontrast 4.5 mm thick angled axial sections acquired from the foramen magnum to the vertex, with coronal and sagittal reformats. For radiation dose reduction, the following was used: automated exposure control, adjustment of mA and/or kV according to patient size. COMPARISON: [facility], CT, CT HEAD/BRAIN WO CON, 11/13/2023, 13:43. FINDINGS: Image quality: Diagnostic. CSF spaces: Extraction left subdural hematoma, with mild residual hypoattenuation along the anterior convexity, max diameter 4 millimeters. Brain: No midline shift. No intracranial masses or hemorrhage. Mendoza-white matter interface is normal. Skull and face: Calvarium and visualized facial bones are intact, without suspicious lesions. Left taniya holes. Sinuses: Visualized sinuses and mastoids are clear. IMPRESSION: Interval extraction of the left subdural hematoma, with mild residual blood products versus cystic hygroma overlying the left frontal convexity. No midline shift or herniation. Dictated by: Kurt Guzmán M.D. on 03/06/2024 at 15:57 Approved by: Kurt Guzmán M.D. on 03/06/2024 at 15:59
[2024-03-06 15:28] LABS: Prothrombin Time 11.5 SECONDS (9.4-12.5)
[2024-03-06 15:31] LABS: Add Manual Diff / Slide Review NO; Basophils Absolute Auto 100 /uL (0-100); Basophils Percent Auto 1.1 % (0-2); Eosinophils Absolute Auto 100 /uL (0-450); Eosinophils Percent Auto 2.2 % (2-4); Hematocrit 44.5 % (41-53); Hemoglobin 15.2 g/dL (13.5-17.5); Lymphocytes Absolute Auto 1300 /uL (1100-4500); Mean Corpuscular HGB Conc 34.1 % (30-36); Mean Corpuscular Hemoglobin 30.9 PG (26-34); Mean Corpuscular Volume 90.8 fL (80-100); Monocytes Absolute Auto 300 /uL (0-900); Monocytes Percent Auto 5.4 % (3-14); Neutrophils Absolute Auto 3700 /uL (1500-7000); Neutrophils Percent Auto 67.3 % (50-75); PTT Partial Thromboplastin Tim 43 SECONDS (25.1-36.5); Platelet Count 182 X10^3/uL (150-400); Red Cell Distribution Width 13.1 % (11.6-14.8); White Blood Cell Count 5.5 X10^3/uL (4.5-11.0)
[2024-03-06 15:39] LABS: Alanine Aminotransferase 35 IU/L (<50); Albumin 4.5 g/dL (3.5-5.0); Albumin Globulin Ratio 1.7 (1.0-2.8); Alkaline Phosphatase 83 U/L (38-126); Aspartate Aminotransferase 34 IU/L (17-59); BUN Creatinine Ratio 13.8 (6-22); Bilirubin Total 1.5 mg/dL (0.2-1.3); Blood Urea Nitrogen 15 mg/dL (9-20); Carbon Dioxide 31 mmol/L (22-32); Chloride 104 mmol/L (98-107); Creatine Kinase 140 U/L (55-170); Estimated Glomerular Filt Rate > 60 mL/min (>60); Globulin 2.6 g/dL (1.7-4.1); Glucose 143 mg/dL (80-110); HEMOLYSIS 26 (0-50); Lipase 146 U/L (23-300); Magnesium 2.1 mg/dL (1.6-2.3); Potassium 4.1 mmol/L (3.4-5.1); Sodium 140 mmol/L (137-145); Total Protein 7.1 g/dL (6.3-8.2)
[2024-03-06 15:50] LABS: Troponin I < 0.012 ng/mL (0.01-0.034)
[2024-03-06 18:34] VITALS: BP 143/72; PULSE 54; RESP 12; O2SAT 99
--- NOTE | 2024-03-06 19:07 | ED.GENADULT ---
HPI - General Adult General Chief complaint: Syncope Stated complaint: Syncope, post op neuro surgery, headache Time Seen by Provider: 03/06/24 18:57 Source: patient Mode of arrival: Ambulatory History of Present Illness HPI narrative: Patient is a 73-year-old male. Has had syncopal episodes in the past. Has also had history of a intracranial hemorrhage. He states that today he was at his normal state of health. He states he was trying to reach for a article of clothing above his head when he had a episode where he fell. He did not specifically lose consciousness altogether as he does remember falling backwards and landing on his buttocks. He did not hit his head. He was not confused afterwards. Prior to the event he did not complain of chest pain or palpitations or shortness of breath. He did have a slight headache but that has now completely resolved. He did go on a hike today. He thought that he maintain his hydration during the hike. At the time of my exam patient states he is feeling relatively normal. He has not on anticoagulation Related Data Home Medications Medication Instructions Recorded Confirmed allopurinol 300 mg tablet 300 mg PO BEDTIME 01/02/19 11/13/23 losartan 100 mg tablet 100 mg PO BEDTIME 01/02/19 11/13/23 cholecalciferol (vitamin D3) 25 1,000 unit PO BEDTIME 11/13/23 11/13/23 mcg (1,000 unit) tablet (Vitamin D3) lamotrigine 150 mg tablet 150 mg PO BEDTIME 11/13/23 11/13/23 (Lamictal) Allergies Allergy/AdvReac Type Severity Reaction Status Date / Time atorvastatin [ATORVASTATIN] Allergy Intermediate Verified 03/06/24 15:03 ciprofloxacin [From CIPRO] Allergy Intermediate Verified 03/06/24 15:03 erythromycin base Allergy Mild HEACACHE, Verified 03/06/24 15:03 [ERYTHROMYCIN BASE] SWELLING, FEEL TERRIBLE Review of Systems Review of Systems ROS Unobtainable: All systems reviewed & are unremarkable except as noted in HPI and below Patient History Family History Father No problems noted. Mother No problems noted. Social History Smoking Status: Never smoker Smoking Status: Never smoker alcohol intake frequency: holidays/special occasions only Substance Use Type: does not use Exam Initial Vital Signs Initial Vital Signs: Vital Signs Temperature 97.6 F 03/06/24 15:03 Pulse Rate 67 03/06/24 15:03 Respiratory Rate 15 03/06/24 15:03 Blood Pressure 118/58 L 03/06/24 15:03 Pulse Oximetry 97 03/06/24 15:03 Oxygen Delivery Method Room Air 03/06/24 15:03 Const General: cooperative and comfortable Resp Effort & Inspection: normal respiratory effort Cardio Rate: regular rate GI Inspection: normal to inspection and non-distended Skin General: no rashes or lesions noted Neuro General: patient alert, patient awake, patient oriented x3 and moves all extremities Extrem Other: No gross deformities Course Orders Ordered: ED Orders 03/06/24 15:10 Complete Blood Count AUTO DIFF Stat Comprehensive Metabolic Panel Stat Lipase Stat Magnesium Stat PTT Partial Thromboplastin Terrance Stat Prothrombin Time INR Stat Troponin & CK Cardiac Panel Stat 03/06/24 15:18 CT head/brain wo con Stat XR chest 1V Stat EKG-12 Lead Stat Vital Signs Vital signs: Vital Signs - 8 hr 03/06/24 15:03 03/06/24 18:34 03/06/24 19:13 Temperature 97.6 F Pulse Rate 67 54 L 51 L Respiratory Rate 15 12 14 Blood Pressure 118/58 L 143/72 H 143/67 H Pulse Oximetry 97 99 99 Oxygen Delivery Method Room Air Room Air Medical Decision Making Medical Records Medical records reviewed: Yes I reviewed the patient's medical records. Lab Data Lab results reviewed: Yes I reviewed the patient's lab results. 03/06/24 15:10 03/06/24 15:10 Labs: Lab Results 03/06/24 Range/Units 15:10 WBC 5.5 (4.5-11.0) X10^3/uL RBC 4.90 (4.5-5.9) X10^6/uL Hgb 15.2 (13.5-17.5) g/dL Hct 44.5 (41-53) % MCV 90.8 (80-100) fL MCH 30.9 (26-34) PG MCHC 34.1 (30-36) % RDW 13.1 (11.6-14.8) % Plt Count 182 (150-400) X10^3/uL Neut % (Auto) 67.3 (50-75) % Lymph % (Auto) 24.0 L (25-40) % [place] % (Auto) 5.4 (3-14) % Eos % (Auto) 2.2 (2-4) % Baso % (Auto) 1.1 (0-2) % Neut # (Auto) 3700 (9335-9569) /uL Lymph # (Auto) 1300 (7627-3172) /uL [place] # (Auto) 300 (0-900) /uL Eos # (Auto) 100 (0-450) /uL Baso # (Auto) 100 (0-100) /uL PT 11.5 (9.4-12.5) SECONDS INR 1.0 (0.9-1.3) APTT 43 H (25.1-36.5) SECONDS Sodium 140 (137-145) mmol/L Potassium 4.1 (3.4-5.1) mmol/L Chloride 104 (98-107) mmol/L Carbon Dioxide 31 (22-32) mmol/L BUN 15 (9-20) mg/dL Creatinine 1.09 (0.66-1.25) mg/dL Estimated GFR > 60 (>60) mL/min BUN/Creatinine Ratio 13.8 (6-22) Glucose 143 H (80-110) mg/dL Calcium 9.0 (8.4-10.2) mg/dL Magnesium 2.1 (1.6-2.3) mg/dL Total Bilirubin 1.5 H (0.2-1.3) mg/dL AST 34 (17-59) IU/L ALT 35 (<50) IU/L Alkaline Phosphatase 83 (38-126) U/L Total Creatine Kinase 140 (55-170) U/L Troponin I < 0.012 (0.01-0.034) ng/mL Total Protein 7.1 (6.3-8.2) g/dL Albumin 4.5 (3.5-5.0) g/dL Globulin 2.6 (1.7-4.1) g/dL Albumin/Globulin Ratio 1.7 (1.0-2.8) Lipase 146 (23-300) U/L Point of Care Testing Glucose POC 147 Point of care testing: Point of Care Testing Glucose POC 147 Imaging Data Chest x-ray: Radiologist's Impression: PROCEDURE: XR CHEST 1V INDICATIONS: chest pain TECHNIQUE: One view of the chest was acquired. COMPARISON: [facility], CR, XR CHEST 1V, 08/23/2023, 10:12. [facility], CR, XR CHEST 2V, 08/06/2019, 13:51. FINDINGS: Surgical changes and devices: None. Lungs and pleura: Lungs are clear. No pleural effusions or pneumothorax. Mediastinum: Mediastinal contours appear normal. Heart size is normal. Bones and chest wall: No suspicious bony lesions. Overlying soft tissues appear unremarkable. IMPRESSION: No acute cardiopulmonary abnormality is seen. CT scan - head: Radiologist's Impression: PROCEDURE: CT HEAD/BRAIN WO CON INDICATIONS: syncopal episode TECHNIQUE: Noncontrast 4.5 mm thick angled axial sections acquired from the foramen magnum to the vertex, with coronal and sagittal reformats. For radiation dose reduction, the following was used: automated exposure control, adjustment of mA and/or kV according to patient size. COMPARISON: [facility], CT, CT HEAD/BRAIN WO CON, 11/13/2023, 13:43. FINDINGS: Image quality: Diagnostic. CSF spaces: Extraction left subdural hematoma, with mild residual hypoattenuation along the anterior convexity, max diameter 4 millimeters. Brain: No midline shift. No intracranial masses or hemorrhage. Mendoza-white matter interface is normal. Skull and face: Calvarium and visualized facial bones are intact, without suspicious lesions. Left taniya holes. Sinuses: Visualized sinuses and mastoids are clear. IMPRESSION: Interval extraction of the left subdural hematoma, with mild residual blood products versus cystic hygroma overlying the left frontal convexity. No midline shift or herniatio ECG Data Attestation: I personally reviewed and interpreted this ECG as follows: Interpretation: Sinus bradycardia Ventricular rate of 59 Normal axis Normal QRS Normal QTC Nonspecific ST T wave changes MDM Narrative Medical decision making narrative: Workup here in the emergency department is relatively unremarkable. His CT scan show no acute pathology. Had a discussion with him regarding his symptoms. We did discuss the potential etiologies of a abnormal transient heart rhythm. Patient states that he was worn a Holter monitor after his last syncopal episode but he did not have any syncopal events during that time and it was relatively unremarkable. We discussed other possibilities of why he was passing out. He thinks that maybe he ?overdid it? today with his hike and then eat or drink as much as what he thought. There was no indication for admission to the hospital. Recommended that the patient contact his primary doctor for a follow-up. I have low suspicion that this was seizure activity. He has not on antiseizure medications. He was given return precautions. He expressed understanding and agreement. Discharge Plan Departure Patient Disposition: Home Clinical Impression: Syncope Instructions: DI for Syncope in Adults (Fainting) Activity Restrictions/Additional Instructions: Recommend that you continue to take all of your medications as directed. Contact your primary care doctor for a follow-up. Return to the emergency department for new or worsening symptoms. Prescriptions: No Action allopurinol 300 mg tablet 300 mg PO BEDTIME losartan 100 mg tablet 100 mg PO BEDTIME cholecalciferol (vitamin D3) [Vitamin D3] 25 mcg (1,000 unit) Tablet 1,000 unit PO BEDTIME lamotrigine [Lamictal] 150 mg tablet 150 mg PO BEDTIME Rx Instructions: Take 1 tab daily Referrals: Elma Piper MD [Primary Care Provider] - Stand Alone Forms: Patient Portal/API
[2024-03-06 19:13] VITALS: BP 143/67; PULSE 51; RESP 14; O2SAT 99
== END 2024-03-06 19:16 | disposition home or self-care (01) ==
PROVIDERS: Emergency Medicine; Emergency Provider Emergency Medicine; Family Provider Internal Medicine; PCP Internal Medicine
DX: R55 Syncope and collapse (principal); R51.9 Headache, unspecified; R00.1 Bradycardia, unspecified
CPT/HCPCS: 36415; 70450; 71045; 80053; 82550; 82962; 83690; 83735; 84484; 85025; 85610; 85730; 93005; 99283; 99284

== ENCOUNTER 2025-02-07 02:24 | Emergency (ER) | payer MEDICARE, OTHER, SELFPAY ==
[2023-08-23 22:02] VITALS: BMI 27.8
[2025-02-07] VITALS (8 sets, daily range): BP systolic 121–175; BP diastolic 61–77; PULSE 47–66; RESP 15–20; TEMP 36.4; O2SAT 95–99; BMI 27.8
[2025-02-07 03:09] LABS: Bacteria Urine Occasional (0-1); RBC Urine 5-10/HPF (0-5/HPF); Squamous Epithelial Cell Urine 0-1 /HPF (0-5/HPF); Urine Volume 10mL (spun); WBC Urine None Seen (0-5/HPF)
[2025-02-07 03:10] LABS: Amorphous Sediment Urine 1+; Culture Indicated Urine Cult Not Indicated; Mucus Urine 1+ (Negative)
--- NOTE | 2025-02-07 03:21 | ED.ABDPAIN ---
HPI - Abdominal Pain General Chief Complaint: Abdominal Pain Stated Complaint: Possible Appendicitis, lower/mid rt side pain Time Seen by Provider: 02/07/25 02:50 Source: patient Mode of arrival: Ambulatory History of Present Illness HPI narrative: 74-year-old gentleman history of hypertension gout history of subdural bleed presents with abdominal pain that localized to the right lower quadrant and radiated to the back along with nausea but no hematuria no fever or chills or body ache. Patient last had a bowel movement yesterday and last ate pasta earlier tonight. He did try to take some MiraLax to see if that help but it did not and the pain got worse so he came in to be evaluated. Other than what is stated 14 point review of system is negative Related Data Home Medications Medication Instructions Recorded Confirmed allopurinol 300 mg tablet 300 mg PO BEDTIME 01/02/19 11/13/23 losartan 100 mg tablet 100 mg PO BEDTIME 01/02/19 11/13/23 cholecalciferol (vitamin D3) 25 1,000 unit PO BEDTIME 11/13/23 11/13/23 mcg (1,000 unit) tablet (Vitamin D3) lamotrigine 150 mg tablet 150 mg PO BEDTIME 11/13/23 11/13/23 (Lamictal) Previous Rx's Medication Instructions Recorded hydrocodone 5 mg-acetaminophen 325 1 tab PO Q4-6H PRN pain #20 tabs 25 mg tablet sulfamethoxazole 800 1 tab PO BID #20 tabs 02/07/25 mg-trimethoprim 160 mg tablet (Bactrim DS) tamsulosin 0.4 mg capsule (Flomax) 0.4 mg PO BEDTIME #30 caps 02/07/25 Allergies Allergy/AdvReac Type Severity Reaction Status Date / Time atorvastatin [ATORVASTATIN] Allergy Intermediate Verified 03/06/24 15:03 ciprofloxacin [From CIPRO] Allergy Intermediate Verified 03/06/24 15:03 erythromycin base Allergy Mild HEACACHE, Verified 03/06/24 15:03 [ERYTHROMYCIN BASE] SWELLING, FEEL TERRIBLE Review of Systems Review of Systems ROS Unobtainable: All systems reviewed & are unremarkable except as noted in HPI and below Patient History Family History Father No problems noted. Mother No problems noted. Social History Smoking Status: Never smoker Smoking Status: Never smoker alcohol intake frequency: holidays/special occasions only Exam Narrative Exam Narrative: GENERAL: [84] year old patient appears stated age. Well-developed patient, in mild distress. HEAD: Atraumatic. Normocephalic. EYES: Pupils equal round and reactive. Extraocular motions intact. No scleral icterus. No injection or drainage. ENT: Nose without bleeding, purulent drainage. Throat without erythema, tonsillar hypertrophy or exudate. Airway patent. NECK: Trachea midline. Non tender CARDIOVASCULAR: Bradycardic but Regular rate and rhythm without murmurs, gallops, or rubs. RESPIRATORY: Clear to auscultation. Breath sounds equal bilaterally. No wheezes, rales, or rhonchi. GASTROINTESTINAL: Abdomen soft, min TTP RLQ neg hernandez and neg rosvign nondistended. EXTREMITIES: No edema or joint tenderness. BACK: Nontender without deformity or crepitance. No flank tenderness. NEURO: AOx3. SKIN: No rash or erythema of visible areas Initial Vital Signs Initial Vital Signs: Vital Signs Temperature 97.5 F L 02/07/25 02:53 Pulse Rate 47 L 02/07/25 02:53 Respiratory Rate 20 02/07/25 02:53 Blood Pressure 175/70 H 02/07/25 02:53 Pulse Oximetry 98 02/07/25 02:53 Oxygen Delivery Method Room Air 02/07/25 02:53 Course Orders Ordered: ED Orders 02/07/25 02:46 Urine Microscopic Stat 02/07/25 02:50 Complete Blood Count AUTO DIFF Stat Comprehensive Metabolic Panel Stat Lipase Stat 02/07/25 02:57 EKG-12 Lead Stat 02/07/25 03:28 CT abdomen pelvis w con Stat Sodium Chloride (Normal Saline 0.9%) 1,000 mls @ 1,000 mls/hr IV BOLUS PRN PRN Reason: Fluid replacement Last Admin: 02/07/25 03:35 Dose: 1,000 mls/hr Documented By: JAYDEN Ondansetron HCl (Ondansetron 4 Mg/2 Ml Inj) 4 mg IV NOW PRN PRN Reason: Nausea And Vomiting Ondansetron HCl (Ondansetron 4 Mg Odt) 4 mg PO NOW PRN PRN Reason: Nausea And Vomiting Discontinued Medications Ketorolac Tromethamine (Ketorolac 30 Mg/Ml Vial) 30 mg IV NOW ONE Stop: 02/07/25 03:29 Last Admin: 02/07/25 03:35 Dose: 30 mg Documented By: LS Ondansetron HCl (Ondansetron 4 Mg/2 Ml Inj) 4 mg IV NOW ONE Stop: 02/07/25 03:29 Last Admin: 02/07/25 03:35 Dose: 4 mg Documented By: LS Vital Signs Vital signs: Vital Signs - 8 hr 02/07/25 02:53 Temperature 97.5 F L Pulse Rate 47 L Respiratory Rate 20 Blood Pressure 175/70 H Pulse Oximetry 98 Oxygen Delivery Method Room Air MDM - Abdominal Pain Lab Data 02/07/25 02:50 02/07/25 02:50 Labs: Lab Results 02/07/25 02/07/25 Range/Units 02:46 02:50 WBC 6.9 (4.5-11.0) X10^3/uL RBC 4.80 (4.5-5.9) X10^6/uL Hgb 14.8 (13.5-17.5) g/dL Hct 43.6 (41-53) % MCV 90.9 (80-100) fL MCH 30.9 (26-34) PG MCHC 34.0 (30-36) % RDW 13.7 (11.6-14.8) % Plt Count 189 (150-400) X10^3/uL Neut % (Auto) 72.4 (50-75) % Lymph % (Auto) 19.7 L (25-40) % [place] % (Auto) 4.9 (3-14) % Eos % (Auto) 2.2 (2-4) % Baso % (Auto) 0.8 (0-2) % Neut # (Auto) 5000 (1797-4696) /uL Lymph # (Auto) 1400 (8969-1065) /uL [place] # (Auto) 300 (0-900) /uL Eos # (Auto) 200 (0-450) /uL Baso # (Auto) 100 (0-100) /uL Sodium 140 (137-145) mmol/L Potassium 3.8 (3.4-5.1) mmol/L Chloride 101 (98-107) mmol/L Carbon Dioxide 32 (22-32) mmol/L BUN 17 (9-20) mg/dL Creatinine 1.34 H (0.66-1.25) mg/dL Estimated GFR 56 L (>60) mL/min BUN/Creatinine Ratio 12.7 (6-22) Glucose 131 H (70-99) mg/dL Calcium 9.3 (8.4-10.2) mg/dL Total Bilirubin 2.1 H (0.2-1.3) mg/dL AST 38 (17-59) IU/L ALT 42 (<50) IU/L Alkaline Phosphatase 78 (38-126) U/L Total Protein 7.4 (6.3-8.2) g/dL Albumin 4.6 (3.5-5.0) g/dL Globulin 2.8 (1.7-4.1) g/dL Albumin/Globulin Ratio 1.6 (1.0-2.8) Lipase 110 (23-300) U/L Urine RBC 5-10/hpf H (0-5/HPF) Urine WBC None seen (0-5/HPF) Ur Squamous Epith Cells 0-1 /hpf (0-5/HPF) Amorphous Sediment 1+ Urine Bacteria Occasional (0-1) (None) Urine Mucus 1+ H (Negative) Ur Culture Indicated? Cult not indicated Vol Urine Centrifuged 10ml (spun) Point of care testing: Urine Dip Bedside Urine Glucose Negative Bedside Urine Bilirubin - Negative Bedside Urine Ketone - Negative Urine Specific [place] 1.015 Bedside Urine Occult Blood +++ Bedside Urine pH 6.5 Bedside Urine Protein +/- 15 Bedside Urine Urobilinogen - Negative Bedside Urine Nitrite - Negative Bedside Urine Leukocytes - Negative Esterase ECG Data Interpretation: Sinus Ole HR 50 IN 178 QRS [address]-t wave change Unchanged from 11/13/23 MDM Narrative Medical decision making narrative: All lab work EKG CT scan vital signs nurse triage note medication list in all previous visits reviewed. Patient given Rocephin 1 g lactated ringer 1 L bolus Toradol IV and Zofran IV and Flomax and a strainer to go home with along with [place] and and Bactrim. Patient will follow up with Urology office locally and to call for an appointment. Differential diagnosis includes appendicitis pancreatitis cholecystitis kidney stone kidney infection. Discharge Plan Departure Patient Disposition: Home Clinical Impression: Kidney stone on right side Instructions: DI for Kidney Stones Activity Restrictions/Additional Instructions: Return with new or worsening symptoms. Take your medicines as directed. Follow up with Urology office next week call office for appointment. Prescriptions: New tamsulosin [Flomax] 0.4 mg capsule 0.4 mg PO BEDTIME Qty: 30 0RF sulfamethoxazole-trimethoprim [Bactrim DS] 800-160 mg tablet 1 tab PO BID Qty: 20 0RF hydrocodone-acetaminophen 5-325 mg tablet 1 tab PO Q4-6H PRN (Reason: pain) Qty: 20 0RF No Action allopurinol 300 mg tablet 300 mg PO BEDTIME losartan 100 mg tablet 100 mg PO BEDTIME cholecalciferol (vitamin D3) [Vitamin D3] 25 mcg (1,000 unit) Tablet 1,000 unit PO BEDTIME lamotrigine [Lamictal] 150 mg tablet 150 mg PO BEDTIME Rx Instructions: Take 1 tab daily Referrals: Elma Piper MD [Primary Care Provider] - Stand Alone Forms: Patient Portal/API/Survey
[2025-02-07 03:24] LABS: Add Manual Diff / Slide Review NO; Basophils Absolute Auto 100 /uL (0-100); Basophils Percent Auto 0.8 % (0-2); Eosinophils Absolute Auto 200 /uL (0-450); Eosinophils Percent Auto 2.2 % (2-4); Hematocrit 43.6 % (41-53); Hemoglobin 14.8 g/dL (13.5-17.5); Lymphocytes Absolute Auto 1400 /uL (1100-4500); Lymphocytes Percent Auto 19.7 % (25-40); Mean Corpuscular Hemoglobin 30.9 PG (26-34); Mean Corpuscular Volume 90.9 fL (80-100); Monocytes Absolute Auto 300 /uL (0-900); Monocytes Percent Auto 4.9 % (3-14); Neutrophils Absolute Auto 5000 /uL (1500-7000); Neutrophils Percent Auto 72.4 % (50-75); Platelet Count 189 X10^3/uL (150-400); Red Cell Distribution Width 13.7 % (11.6-14.8); White Blood Cell Count 6.9 X10^3/uL (4.5-11.0)
--- NOTE | 2025-02-07 03:28 | DI.CT.S_ITS ---
PROCEDURE: CT ABDOMEN PELVIS W CON INDICATIONS: RLQ pain/nausea TECHNIQUE: After the administration of intravenous contrast, axial sections acquired from the lung bases to the pubic symphysis. Coronal and sagittal reformats were performed. For radiation dose reduction, the following was used: automated exposure control, adjustment of mA and/or kV according to patient size. COMPARISON: None. FINDINGS: Image quality: Diagnostic. Lower Chest: No significant findings. ABDOMEN: Liver: The liver is diffusely decreased in attenuation without focal mass lesion. Small subcentimeter left hepatic cyst Gallbladder: No radiopaque gallstones or wall thickening. Biliary ducts: No biliary dilation. Pancreas: No ductal dilation. Spleen: Size is within normal limits. Adrenal Glands: No adrenal nodules. Kidneys and Ureters: Moderate right hydronephrosis and hydroureter associated with 4 mm calculus in the proximal right ureter. 3 mm nonobstructing left renal calculus. No left hydronephrosis Stomach and Bowel: Normal colonic caliber, without significant wall thickening. Peritoneum: No abnormal intraperitoneal fluid. No free air. Ventral Wall: No significant ventral hernia. Abdominal Nodes: No retroperitoneal or mesenteric adenopathy by size criteria. Vessels: Aorta and inferior vena cava are normal in size. PELVIS: Pelvic Organs: Unremarkable. Bladder: No bladder wall thickening, accounting for underdistention. Pelvic Nodes: No enlarged lymph nodes. Miscellaneous: Left inguinal hernia(s) contain fat without bowel involvement. Bones: Degenerative disc disease and arthropathy noted in lower lumbar spine. IMPRESSION: Right obstructive uropathy associated with 4 mm calculus in the proximal ureter Nonobstructing left renal calculus Note: This final report is concordant with the preliminary after-hours interpretation provided by [employer] Approved by: Orion Friedman M.D. on 02/07/2025 at 8:54
[2025-02-07] MEDS: SODIUM CHLORIDE 0.9% 1,000 ML 1000 ML IV (03:35)
[2025-02-07] MEDS: ONDANSETRON 4 MG/2 ML INJ IV (03:35)
[2025-02-07] MEDS: KETOROLAC 30 MG/ML VIAL IV (03:35)
--- NOTE | 2025-02-07 03:35 | EKG_ITS ---
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
[2025-02-07 03:37] LABS: Alanine Aminotransferase 42 IU/L (<50); Albumin 4.6 g/dL (3.5-5.0); Albumin Globulin Ratio 1.6 (1.0-2.8); Alkaline Phosphatase 78 U/L (38-126); Aspartate Aminotransferase 38 IU/L (17-59); BUN Creatinine Ratio 12.7 (6-22); Bilirubin Total 2.1 mg/dL (0.2-1.3); Blood Urea Nitrogen 17 mg/dL (9-20); Calcium 9.3 mg/dL (8.4-10.2); Carbon Dioxide 32 mmol/L (22-32); Chloride 101 mmol/L (98-107); Estimated Glomerular Filt Rate 56 mL/min (>60); Globulin 2.8 g/dL (1.7-4.1); Glucose 131 mg/dL (70-99); HEMOLYSIS < 15 (0-50); Lipase 110 U/L (23-300); Potassium 3.8 mmol/L (3.4-5.1); Sodium 140 mmol/L (137-145); Total Protein 7.4 g/dL (6.3-8.2)
--- NOTE | 2025-02-07 03:50 | PC.NURSE ---
Pt to imaging via ED stretcher with cryptological technician
[2025-02-07] MEDS: TAMSULOSIN 0.4 MG CAPSULE PO (05:05)
[2025-02-07] MEDS: cefTRIAXone 1,000 MG in SODIUM CHLORIDE 0.9% 100 ML 200 MG IV (05:05)
--- NOTE | 2025-02-07 05:26 | PC.NURSE ---
Ambulatory to restroom without difficulty or assistance
== END 2025-02-07 05:50 | disposition home or self-care (01) ==
PROVIDERS: Emergency Provider Family Medicine; Family Provider Internal Medicine; PCP Internal Medicine
DX: N20.0 Calculus of kidney (principal); I10 Essential (primary) hypertension; R00.1 Bradycardia, unspecified
CPT/HCPCS: 36415; 74177; 80053; 81003; 81015; 83690; 85025; 93005; 93010; 96361; 96365; 96375; 99284; J0696; J1885; J2405; Q9967

== ENCOUNTER → 2025-03-19 14:41 | Outpatient (CLI) | payer MEDICARE, OTHER, SELFPAY ==
[2023-08-23 22:02] VITALS: BMI 27.8
--- NOTE | 2025-03-19 14:43 | DI.CT.S_ITS ---
PROCEDURE: CT KIDNEY URETER BLADDER (KUB) INDICATIONS: 74 y/o M w/ 4mm right proximal stone, eval for passage TECHNIQUE: After the administration of oral contrast, 5 mm thick sections acquired from the diaphragms to the symphysis. 5 mm coronal and sagittal reformats were performed. For radiation dose reduction, the following was used: automated exposure control, adjustment of mA and/or kV according to patient size. COMPARISON: [facility], CT, CT ABDOMEN PELVIS W CON, 02/07/2025, 3:50. FINDINGS: Image quality: Diagnostic. Lower Chest: No significant findings. ABDOMEN: Liver: No contour-deforming mass. Gallbladder: No radiopaque gallstones or wall thickening. Biliary ducts: No biliary dilation. Pancreas: No ductal dilation. Spleen: Size is within normal limits. Adrenal Glands: No adrenal nodules. Kidneys and Ureters: There is no hydronephrosis. There is a 4 mm stone in the most distal portion of the right ureter, adjacent to the UVJ. Stable appearance of the nonobstructing calculus in the left renal pelvis measuring 3-4 mm. No new calculi seen. Stomach and Bowel: Normal colonic caliber, without significant wall thickening. Peritoneum: No abnormal intraperitoneal fluid. No free air. Ventral Wall: No significant hernia. Abdominal Nodes: No retroperitoneal or mesenteric adenopathy by size criteria. Vessels: Aorta and inferior vena cava are normal in size. PELVIS: Pelvic Organs: Unremarkable. Bladder: Unremarkable. Pelvic Nodes: No enlarged lymph nodes. Miscellaneous: No inguinal hernias are seen. Bones: No aggressive osseous abnormality. IMPRESSION: 1. Migration of the previously seen right ureteral stone which is now located immediately proximal to the UVJ. There is no hydronephrosis. 2. Stable appearance of nonobstructing left renal calculus, no new abnormality seen. Dictated by: Ronni Brian M.D. on 03/19/2025 at 16:15 Approved by: Ronni Brian M.D. on 03/19/2025 at 16:19
== END ==
PROVIDERS: Family Provider Internal Medicine; PCP Internal Medicine; Referring Provider Urology; Visit Provider Urology
DX: N20.2 Calculus of kidney with calculus of ureter (principal)
CPT/HCPCS: 74176

== ENCOUNTER → 2025-04-27 13:45 | Outpatient (CLI) | payer MEDICARE, OTHER, SELFPAY ==
[2023-08-23 22:02] VITALS: BMI 27.8
--- NOTE | 2025-04-27 13:46 | DI.CT.S_ITS ---
PROCEDURE: CT PEL WO CON INDICATIONS: Right ureteral calculus of kidney TECHNIQUE: Noncontrast 3 mm axial sections acquired through the pelvis, with coronal and sagittal reformatting. COMPARISON: [facility], CT, CT KIDNEY URETER BLADDER (KUB), 03/19/2025, 14:51. FINDINGS: Image quality: Excellent. Soft tissues: 0.6 x 0.4 cm calculus remains at the right ureterovesicular junction. Hounsfield units are approximately 530. Proximally, there is no hydroureter. No left distal ureteral calculi or hydroureter. The bladder is partially decompressed. No wall thickening or intrinsic stone. No urethral stone. Tiny bilateral fat containing inguinal hernias. Normal appendix. Occasional colonic diverticulosis. Mild prostatomegaly. Normal vascular caliber. No abnormal pelvic lymph nodes. No free fluid or suspicious fluid collections. Bones: Disc and endplate degeneration in the visible lumbar spine. No suspicious bone lesions. IMPRESSION: Persistent 6 mm right UVJ calculus without upstream ureteral dilatation. Dictated by: Shannon Sosa M.D. on 04/28/2025 at 9:51 Approved by: Shannon Sosa M.D. on 04/28/2025 at 9:57
== END ==
PROVIDERS: PCP Internal Medicine; Referring Provider Urology; Visit Provider Urology
DX: N20.1 Calculus of ureter (principal)
CPT/HCPCS: 72192

== ENCOUNTER → 2025-05-06 10:37 | Outpatient (CLI) | payer MEDICARE, OTHER, SELFPAY ==
[2023-08-23 22:02] VITALS: BMI 27.8
== END ==
PROVIDERS: PCP Internal Medicine; Visit Provider Urology
DX: R39.9 Unspecified symptoms and signs involving the genitourinary system (principal)
CPT/HCPCS: 87086

== ENCOUNTER 2025-06-02 14:08 | Day surgery (SDC) | payer MEDICARE, OTHER, SELFPAY ==
[2023-08-23 22:02] VITALS: BMI 27.8
[2025-05-26 13:01] VITALS: BMI 27.8
[2025-06-02] VITALS (8 sets, daily range): BP systolic 149–171; BP diastolic 80–91; PULSE 50–78; RESP 12–18; TEMP 36.2–36.4; O2SAT 97–100; BMI 27.3
--- NOTE | 2025-06-02 | DI.RAD.S_ITS ---
PROCEDURE: XR ABDOMEN 1V INDICATIONS: Right Stent Placement TECHNIQUE: 2 intra-operative images acquired by the Urology service. COMPARISON: [facility], CT, CT PEL WO CON, 04/27/2025, 14:31. FINDINGS: Intraoperative images demonstrating a labeled right abdomen pelvis demonstrate catheter with opacification of the renal collecting system. It is minimally prominent. Ureterovesicular stent is present. IMPRESSION: Intraoperative ureterovesicular stent placement. Dictated by: Deborah Briggs M.D. on 06/03/2025 at 9:57 Approved by: Deborah Briggs M.D. on 06/03/2025 at 9:58
[2025-06-02] MEDS: FAMOTIDINE 20 MG/2 ML VIAL IV (14:27)
[2025-06-02] MEDS: LACTATED RINGERS 1,000 ML 42 ML IV (14:27)
--- NOTE | 2025-06-02 15:35 | PM.PREOP ---
Pre-operative Note COVID-19 COVID-19 status: Not tested Interval Note History & Physical reviewed/Exam performed by Physician: Yes Changes to H&P: No
--- NOTE | 2025-06-02 16:13 | SUR.OPER ---
Lithotomy on padded OR bed, head on pillow, arms secured on padded arm boards at <90 degrees abduction. Legs secured in padded yellow fins stirrups.
--- NOTE | 2025-06-02 17:19 | PM.OP.1 ---
Operative Date/Time/Diagnoses Date of procedure: 06/02/25 Time of procedure: 16:00 Pre-op diagnosis: Right distal ureteral stone Post-op diagnosis: same Procedure & Clinicians Procedure: Cystoscopy Right retrograde ureteropyelogram Right ureteroscopy, laser lithotripsy Right ureteral stent placement Intraoperative interpretation of fluoroscopic images, total time < 1 hour Same procedure(s) as scheduled: Yes Indications: 74 y/o M noted to have a 4mm right proximal ureterolith with resultant upstream moderate hydroureteronephrosis in January of 2025 that has resulted in interval movement into his right distal ureter immediately proximal to his UVJ based upon his CT KUB from early March of 2025. Unfortunately, his repeat NCCT Pel in April of 2025 noted no interval migration of his aforementioned calculus. Therefore, discussed treatment options to include observation (not recommended) vs cystoscopy, ureteroscopy, laser lithotripsy with ureteral stent placement. Discussed risks of the procedure to include pain, bleeding, infection, injury to urethra/bladder/ureter, inability to access the ureter requiring discussion with Interventional Radiology regarding a possible ureteral stent placement in an antegrade fashion vs a possible nephroureteral stent and/or percutaneous nephrostomy tube, urinary tract infection, inability to remove all of the stone in one setting, need for emergent open repair of bladder and/or ureter, need for multiple ureteroscopic interventions necessary to render the patient stone free. Surgeon: Duglas Wilkerson Click Yes if Unassisted: Yes Anesthesia Type: General Operative Notes Findings: Moderate sized right distal ureteral stone Closure Type: not applicable Specimen(s): other (right ureteral stone) Applied: none Estimated Blood Loss (mL): 5 Blood products transfused: none Procedure in detail: Patient was identified in the preoperative holding area and consent confirmed. He was then brought to the operating room where general anesthesia was induced.? He was placed in the low lithotomy position. He was then prepped and draped in the usual sterile fashion. A surgical timeout was conducted and all were in agreement. Access to the bladder was obtained via a 30 degree cystoscope.? Complete cystoscopy was then performed and no concerning bladder masses or lesions were appreciated.? Bilateral ureteral orifices were easily identified and noted to be orthotopic in nature.? The right ureteral orifice was then cannulated using a 0.035 sensor tip ureteral guidewire and a 5Fr ureteral catheter was advanced over the guidewire and into the distal right ureter.? The guidewire was then removed and a retrograde ureteropyelogram was performed which noted a moderate filling defect in the distal ureter, consistent with CT findings of a moderate sized stone in this area.? The ureteral guidewire was then readvanced through the ureteral catheter and into the right renal pelvis.? The ureteral catheter was then removed and a semirigid ureteroscope was easily advanced into his right ureter alongside the guidewire and to the level of the stone.? A 200 micron laser fiber was then utilized to perform laser lithotripsy.? All stone fragments >1mm in size were removed via the stone basket and sent for chemical analysis.? The ureter was then directly visualized upon removal of the ureteroscope and noted to be stone free.? A 6Fr multi-length JJ ureteral stent with strings was then advanced over the ureteral guidewire.? Upon removal of the guidewire, a good curl was noted in the right renal pelvis and the bladder using fluoroscopy.? The bladder was then drained.? Anesthesia was reversed, he was extubated in the OR and transferred to the PACU in stable condition for recovery. Complications: none Post-operative Condition: stable Disposition: PACU Plan for aftercare: Discharge home from PACU. Will return to Urology clinic in 3 months for a RBUS and stone analysis review.
== END 2025-06-02 17:54 | disposition home or self-care (01) ==
PROVIDERS: PCP Internal Medicine; Referring Provider Urology; Visit Provider Urology
PROC: (CPT 52356; principal; 2025-06-02 15:45)
DX: N20.1 Calculus of ureter (principal); I10 Essential (primary) hypertension; K21.9 Gastro-esophageal reflux disease without esophagitis; Z86.73 Personal history of transient ischemic attack (TIA), and cerebral infarction without residual deficits
CPT/HCPCS: 52356; 74018; 74420; 76000; 82365; C2617; J0690; J1100; J2405; J2704; J3010; J3490; Q9967

== ENCOUNTER → 2025-08-19 09:32 | Outpatient (CLI) | payer MEDICARE, OTHER, SELFPAY ==
[2023-08-23 22:02] VITALS: BMI 27.8
--- NOTE | 2025-08-19 09:34 | DI.US.S_ITS ---
PROCEDURE: US RENAL COMPLETE
== END ==
PROVIDERS: PCP Internal Medicine; Referring Provider Internal Medicine; Visit Provider Urology
DX: N20.1 Calculus of ureter (principal)
CPT/HCPCS: 76770